=== PATIENT | female | born 1940 | race Caucasian/White ===

== ENCOUNTER 2018-05-26 11:00 | Inpatient (IN) | payer MEDICARE, BC ==
[~2018-05-26] VITALS: Ht 170.2 cm; Wt 77.7 kg
[~2018-05-26 11:00] MED LIST: AMIODARONE HCL200 MG PO; ANTIVERT25 MG PO; ASPIRIN81 MG PO; ATIVAN2 MG/1 ML SQ; BENADRYL25 M1 PO; CHLORDIAZEPOXID10 MG PO; COUMADIN4 MG PO; CYCLOBENZAPRINE10 MG PO; DIGOXIN125 MCG PO; DILANTIN100 MG PO; ENALAPRIL MALEA20 MG PO; FAMOTIDINE20 MG PO; FUROSEMIDE20 MG PO; HYDROXYZINE HCL25 MG PO; IRON325 M1 PO; IRON45 MG PO; LAMICTAL150 MG PO; LEVOTHYROXINE50 MCG PO; LIBRAX CAPSULE1 EACH PO; LO-DOSE ASPIRIN81 MG PO; METOPROLOL TART25 MG PO; POTASSIUM CHLO10 ME1 PO; PREDNISONE PO; PREDNISONE10 MG PO; ULTRAM 50MG50 MG PO; VASOTEC20 MG PO
--- OUTSIDE RECORDS SUMMARY | 2018-05-26 11:02 | XMS REPORT | Clinical Summary ---
Author Author KENAN [facility] Address Unknown Phone Unavailable Care Team Providers Care Turn Supervisor Name Role Phone Sharpless PCP Allergies Comments Active Allergy Reactions Severity Noted Date Celecoxib 09/22/2016 Heparin Analogues 09/03/2016 Azathioprine Sodium 09/22/2016 Levofloxacin 09/22/2016 Methotrexate Analogues 09/22/2016 Morphine Anxiety Low 09/03/2016 Sulfa (Sulfonamide 09/22/2016 Antibiotics) Rivaroxaban 09/22/2016 Medications End Date Status Medication Sig Dispensed Refills Start Date Active aspirin 81 MG chewable Take 81 mg by 0 tablet mouth daily. Active predniSONE (DELTASONE) 10 Take 10 mg by 0 MG tablet mouth daily . Active LORazepam (ATIVAN) 0.5 MG Take 0.5 mg 0 tablet by mouth every 6 (six) hours as needed for Anxiety. Active chlordiazePOXIDE Take 10 mg by 0 (LIBRIUM) 10 MG capsule mouth 3 (three) times daily as needed for Anxiety. Active furosemide (LASIX) 20 MG Take 20 mg by 0 tablet mouth 2 (two) times daily. Active HYDROcodone-acetaminophen Take 1 tablet 0 (NORCO) 5-325 mg per by mouth tablet every 6 (six) hours as needed for Pain. Active metoprolol (TOPROL-XL) 25 Take 25 mg by 0 MG 24 hr tablet mouth daily. Active ibuprofen (ADVIL,MOTRIN) Take 800 mg 0 800 MG tablet by mouth every 6 (six) hours as needed for Pain. Active Problems Problem Noted Date Seizure 09/03/2016 Social History Date Tobacco Use Types Packs/Day Years Used Unknown If Ever Smoked Alcohol Use Drinks/Week oz/Week Comments No Sex Assigned at Date Recorded Not on file Industry Job Start Date Occupation Not on file Not on file Not on file Travel End Travel History Travel Start No recent travel history available. Last Filed Vital Signs Not on file Plan of Treatment Not on file Results Not on fileafter 05/25/2017 Insurance Payer Benefit Subscriber ID Type Phone Address Plan / Group MEDICARE MEDICARE A xxxxxxxxxx Medicare B BLUE CROSS/BLUE SHIELD BCBS xxxxxxxxxxxx O [phone] [address] [place] [address] [place] Advance Directives For more information, please contact: [phone] [place] [address] Date Inactivated Comments Code Status Date Activated 09/05/2016 7:12 PM Full Code 09/03/2016 5:09 PM This code status was determined by: Patient
--- OUTSIDE RECORDS SUMMARY | 2018-05-26 11:03 | XMS REPORT ---
Author Author [facility] Address Unknown Phone Unavailable Care Team Providers Care Rn Charge Name Role Phone JO ANN DRAKE Unavailable Unavailable DENISE ENGLISH Unavailable Unavailable Problems This patient has no known problems. Allergies, Adverse Reactions, Alerts This patient has no known allergies or adverse reactions. Medications This patient has no known medications. Results Test Description Test Time Test Comments Text Results Atomic Results Result Comments URINALYSIS W/ MICROSCOPIC 2016-09-23 02:46:00 COLOR (BEAKER) (test vizz=634) Yellow CLARITY (BEAKER) (test vqzt=612) Clear SPECIFIC GRAVITY UA (BEAKER) (test gmmo=490) 1.020 1.001-1.035 PH UA (BEAKER) (test zuto=246) 6.0 5.0-8.0 PROTEIN UA (BEAKER) (test cokv=262) 20 mg/dL Negative GLUCOSE UA (BEAKER) (test eqcn=012) Negative Negative KETONES UA (BEAKER) (test vzzu=432) Negative Negative BILIRUBIN UA (BEAKER) (test njad=251) Negative Negative BLOOD UA (BEAKER) (test mplr=480) Negative Negative NITRITE UA (BEAKER) (test lrzg=642) Negative Negative LEUKOCYTE ESTERASE UA (BEAKER) (test queo=714) Negative Negative UROBILINOGEN UA (BEAKER) (test cddj=121) 0.2 mg/dL 0.2-1.0 RBC UA (BEAKER) (test drnh=635) 0 /HPF WBC UA (BEAKER) (test drho=716) 4 /HPF MUCUS (BEAKER) (test rcuz=0371) Occasional SQUAMOUS EPITHELIAL (BEAKER) (test nzla=408) 1 /HPF SOURCE(BEAKER) (test fnrd=1456) Urine, Voided [id number] 19:48:00* Test Item Value Reference Range Comments PHOSPHORUS (BEAKER) (test ysst=979) 3.1 mg/dL 2.3-4.7 [id number] 19:48:00* Test Item Value Reference Range Comments MAGNESIUM (BEAKER) (test aywl=004) 1.9 mg/dL 1.6-2.6 BASIC METABOLIC [id number] 19:48:00* Test Item Value Reference Range Comments SODIUM (BEAKER) (test iljf=603) 138 meq/L 136-145 POTASSIUM (BEAKER) (test ynpb=345) 3.9 meq/L 3.5-5.1 CHLORIDE (BEAKER) (test pybn=336) 107 meq/L 98-107 CO2 (BEAKER) (test djlc=175) 26 meq/L 22-29 BLOOD UREA NITROGEN (BEAKER) (test fbqt=287) 11 mg/dL 7-21 CREATININE (BEAKER) (test fati=598) 0.55 mg/dL 0.57-1.25 GLUCOSE RANDOM (BEAKER) (test hfci=580) 95 mg/dL 70-105 CALCIUM (BEAKER) (test ivly=393) 8.4 mg/dL 8.4-10.2 EGFR (BEAKER) (test ator=1023) 108 mL/min/1.73 sq m ESTIMATED GFR IS NOT ACCURATE CREATININE CLEARANCE IN PREDICTING GLOMERULAR FILTRATION RATE. ESTIMATED GFR IS NOT APPLICABLE FOR DIALYSIS PATIENTS. CBC W/PLT COUNT & AUTO [id number] 19:43:00* Test Item Value Reference Range Comments WHITE BLOOD CELL COUNT (BEAKER) (test lene=662) 3.5 K/ L 4.0-10.0 RED BLOOD CELL COUNT (BEAKER) (test oqxi=620) 2.96 M/ L 4.00-5.00 HEMOGLOBIN (BEAKER) (test apjj=205) 9.7 GM/DL 12.0-15.0 HEMATOCRIT (BEAKER) (test gtjb=690) 29.5 % 36.0-45.0 MEAN CORPUSCULAR VOLUME (BEAKER) (test wdeu=617) 99.7 fL 82.0-99.0 MEAN CORPUSCULAR HEMOGLOBIN (BEAKER) (test hqej=862) 32.7 pg 27.0-33.0 MEAN CORPUSCULAR HEMOGLOBIN CONC (BEAKER) (test jrql=856) 32.8 GM/DL 32.0-36.0 RED CELL DISTRIBUTION WIDTH (BEAKER) (test pqzj=982) 13.8 % 10.3-14.2 PLATELET COUNT (BEAKER) (test ssey=257) 175 K/CU MM 150-430 MEAN PLATELET VOLUME (BEAKER) (test vrgy=431) 7.6 fL 6.5-10.5 NUCLEATED RED BLOOD CELLS (BEAKER) (test nvuw=675) 0 /100 WBC 0-0 NEUTROPHILS RELATIVE PERCENT (BEAKER) (test yqej=242) 51 % LYMPHOCYTES RELATIVE PERCENT (BEAKER) (test wwbi=486) 29 % MONOCYTES RELATIVE PERCENT (BEAKER) (test bnpv=373) 14 % EOSINOPHILS RELATIVE PERCENT (BEAKER) (test rhup=760) 6 % BASOPHILS RELATIVE PERCENT (BEAKER) (test pbin=874) 1 % NEUTROPHILS ABSOLUTE COUNT (BEAKER) (test oobi=416) 1.78 K/ L 1.80-8.00 LYMPHOCYTES ABSOLUTE COUNT (BEAKER) (test bvnv=182) 1.03 K/ L 1.48-4.50 MONOCYTES ABSOLUTE COUNT (BEAKER) (test fypu=568) 0.48 K/ L 0.00-1.30 EOSINOPHILS ABSOLUTE COUNT (BEAKER) (test kiay=858) 0.20 K/ L 0.00-0.50 BASOPHILS ABSOLUTE COUNT (BEAKER) (test eeop=254) 0.04 K/ L 0.00-0.20 0.00URINE [id number] 12:34:00* Test Item Value Reference Range Comments CULTURE (BEAKER) (test xjen=4093) No growth BASIC METABOLIC [id number] 07:07:00* Test Item Value Reference Range Comments SODIUM (BEAKER) (test lkbj=244) 133 meq/L 136-145 POTASSIUM (BEAKER) (test jnbd=116) 4.2 meq/L 3.5-5.1 Specimen slightly hemolyzed CHLORIDE (BEAKER) (test krhn=765) 106 meq/L 98-107 CO2 (BEAKER) (test vmsv=171) 19 meq/L 22-29 BLOOD UREA NITROGEN (BEAKER) (test omif=819) 12 mg/dL 7-21 CREATININE (BEAKER) (test pvzx=369) 0.63 mg/dL 0.57-1.25 Specimen slightly hemolyzed GLUCOSE RANDOM (BEAKER) (test cdko=003) 78 mg/dL 70-105 CALCIUM (BEAKER) (test ahev=855) 8.3 mg/dL 8.4-10.2 EGFR (BEAKER) (test xtja=0004) mL/min/1.73 sq m INSUFFICIENT CLINICAL DATA TO CALCULATE ESTIMATED GFR. POCT-GLUCOSE [id number] 13:13:00* Test Item Value Reference Range Comments POC-GLUCOSE METER (BEAKER) (test dafs=1110) 90 mg/dL 70-110 TESTED AT [facility] [address] [facility] [address] CBC W/PLT COUNT & AUTO [id number] 05:53:00* Test Item Value Reference Range Comments WHITE BLOOD CELL COUNT (BEAKER) (test wgzy=414) 3.2 K/ L 4.0-10.0 RED BLOOD CELL COUNT (BEAKER) (test ygkm=887) 2.62 M/ L 4.00-5.00 HEMOGLOBIN (BEAKER) (test vhmw=652) 8.7 GM/DL 12.0-15.0 HEMATOCRIT (BEAKER) (test rxwg=193) 25.1 % 36.0-45.0 MEAN CORPUSCULAR VOLUME (BEAKER) (test sgni=678) 95.9 fL 82.0-99.0 MEAN CORPUSCULAR HEMOGLOBIN (BEAKER) (test aofj=970) 33.2 pg 27.0-33.0 MEAN CORPUSCULAR HEMOGLOBIN CONC (BEAKER) (test wbtp=713) 34.6 GM/DL 32.0-36.0 RED CELL DISTRIBUTION WIDTH (BEAKER) (test yqkq=205) 14.8 % 10.3-14.2 PLATELET COUNT (BEAKER) (test zjtk=810) 136 K/CU MM 150-430 MEAN PLATELET VOLUME (BEAKER) (test krlg=733) 8.4 fL 6.5-10.5 NUCLEATED RED BLOOD CELLS (BEAKER) (test gvbz=858) 3 /100 WBC 0-0 NEUTROPHILS RELATIVE PERCENT (BEAKER) (test zunq=426) 54 % LYMPHOCYTES RELATIVE PERCENT (BEAKER) (test cmjv=885) 28 % MONOCYTES RELATIVE PERCENT (BEAKER) (test hgqg=488) 16 % EOSINOPHILS RELATIVE PERCENT (BEAKER) (test fivc=947) 1 % BASOPHILS RELATIVE PERCENT (BEAKER) (test inku=573) 1 % NEUTROPHILS ABSOLUTE COUNT (BEAKER) (test nbuf=281) 1.74 K/ L 1.80-8.00 LYMPHOCYTES ABSOLUTE COUNT (BEAKER) (test vabs=648) 0.89 K/ L 1.48-4.50 MONOCYTES ABSOLUTE COUNT (BEAKER) (test bdno=090) 0.52 K/ L 0.00-1.30 EOSINOPHILS ABSOLUTE COUNT (BEAKER) (test kmsd=084) 0.03 K/ L 0.00-0.50 BASOPHILS ABSOLUTE COUNT (BEAKER) (test ysek=716) 0.02 K/ L 0.00-0.20 0.00BASIC METABOLIC [id number] 05:25:00* Test Item Value Reference Range Comments SODIUM (BEAKER) (test vxnt=733) 137 meq/L 136-145 POTASSIUM (BEAKER) (test otmb=475) 3.2 meq/L 3.5-5.1 Specimen slightly hemolyzed CHLORIDE (BEAKER) (test mtgz=818) 106 meq/L 98-107 CO2 (BEAKER) (test zcii=462) 24 meq/L 22-29 BLOOD UREA NITROGEN (BEAKER) (test yqnn=371) 13 mg/dL 7-21 CREATININE (BEAKER) (test ypro=580) 0.60 mg/dL 0.57-1.25 Specimen slightly hemolyzed GLUCOSE RANDOM (BEAKER) (test ywbw=813) 88 mg/dL 70-105 CALCIUM (BEAKER) (test prib=605) 7.7 mg/dL 8.4-10.2 EGFR (BEAKER) (test slwm=7105) mL/min/1.73 sq m INSUFFICIENT CLINICAL DATA TO CALCULATE ESTIMATED GFR. [id number] 05:22:00* Test Item Value Reference Range Comments MAGNESIUM (BEAKER) (test tahh=473) 1.6 mg/dL 1.6-2.6 Specimen slightly hemolyzed [id number] 05:22:00* Test Item Value Reference Range Comments PHOSPHORUS (BEAKER) (test jhwo=991) 3.1 mg/dL 2.3-4.7 Specimen slightly hemolyzed URINALYSIS W/ [id number] 19:25:00* Test Item Value Reference Range Comments COLOR (BEAKER) (test hjre=714) Yellow CLARITY (BEAKER) (test vlmx=345) Clear SPECIFIC GRAVITY UA (BEAKER) (test gxcj=737) 1.012 1.001-1.035 PH UA (BEAKER) (test nnad=029) 6.5 5.0-8.0 PROTEIN UA (BEAKER) (test ohwq=288) 10 mg/dL Negative GLUCOSE UA (BEAKER) (test zisi=199) Negative Negative KETONES UA (BEAKER) (test dulw=719) Negative Negative BILIRUBIN UA (BEAKER) (test cmtc=383) Negative Negative BLOOD UA (BEAKER) (test xria=893) Trace Negative NITRITE UA (BEAKER) (test fykt=485) Negative Negative LEUKOCYTE ESTERASE UA (BEAKER) (test ibbf=527) Negative Negative UROBILINOGEN UA (BEAKER) (test qfne=950) 0.2 mg/dL 0.2-1.0 RBC UA (BEAKER) (test lnpm=008) 4 /HPF WBC UA (BEAKER) (test ouzo=366) 3 /HPF MUCUS (BEAKER) (test zgqw=5179) Rare SOURCE(BEAKER) (test enua=9795) Urine, Agrawal
[2018-05-26] MEDS ORDERED: BACITRACIN ZINC 0.9GM TP ONE (11:51)
[2018-05-26] MEDS ORDERED: HYDROCODONE/APAP 5MG-325MG TAB PO ONE (12:00)
--- NOTE | 2018-05-26 13:04 | Diagnostic Imaging Report ---
Thoracic spine complete CPT code: 37494 Indication: Fall 2 days ago, back pain Technique: A.P. and lateral views of thoracic spine obtained without comparison. Findings: The bones are diffusely demineralized. Alignment maintained on AP view. There is height loss of the T7 vertebral body of approximately 30%. No subluxation on lateral image. There are mild degenerative changes of the spine. Cervicothoracic junction is not well demonstrated due to overlapping soft tissue and osseous structures. IMPRESSION: Age-indeterminate T7 compression deformity of approximately 30%. No subluxation. Signed by: Dr. Daysi Vargas MD on 05/26/2018 1:01 PM
--- NOTE | 2018-05-26 13:11 | Diagnostic Imaging Report ---
Lumbar spine two views CPT code: 16074 Indication: Fall 2 days ago, back pain Technique: A.P. and lateral views of the lumbar spine obtained Comparison: Thoracic spine x-rays obtained at the same time. A CT of the abdomen/pelvis performed in 2016 is not available for review. Findings: The bones are diffusely demineralized. There are five non rib bearing vertebral bodies. There is mild dextroscoliosis with the apex at L1/2. There is height loss of the T12 vertebral body of approximately 48%. There is minimal height loss of the L1 vertebral body. No subluxation. Disc space narrowing and endplate osteophytic lipping of L5-S1. There is facet arthropathy of the lower levels with right facet arthropathy at L4-5. Small anterior inferior osteophyte at L2. No abnormalities of the sacroiliac joints. The sacrum is normal. A right hip prosthesis is partially imaged. There are severe degenerative changes of the left hip. Visualized bones of the pelvis are intact. The bowel gas pattern is unremarkable. IMPRESSION: 1. Age indeterminate fracture of T12 of 48%. Minimal superior endplate height loss of L1. No listhesis. 2. Degenerative changes as described above. Signed by: Dr. Daysi Vargas MD on 05/26/2018 1:07 PM
--- NOTE | 2018-05-26 13:14 | Diagnostic Imaging Report ---
Left complete knee. CPT CODE: 58318. INDICATION: Fall COMPARISON: None FINDINGS: The bones are diffusely demineralized. No acute fracture or dislocation. Serpiginous sclerotic focus in the distal diaphysis of the femur measures 6.8 cm in length. Round sclerotic focus in the proximal metadiaphysis of the tibia measures 1.7 cm. Mild medial compartment narrowing of the knee. No significant osteophytosis. Small joint effusion. IMPRESSION: No acute osseous injury. Small joint effusion. Sclerotic intramedullary foci in the femur and proximal tibia may represent enchondromas or bone infarcts. Signed by: Dr. Daysi Vargas MD on 05/26/2018 1:11 PM
[2018-05-26 13:44] LABS: CLARITY,URINE HAZY (CLEAR); COLOR,URINE YELLOW (YELLOW); LEUKOCYTE ESTERASE ,URINE NEGATIVE (NEGATIVE); NITRITE,URINE NEGATIVE (NEGATIVE); PROTEIN,URINE DIPSTICK NEGATIVE (NEGATIVE)
[2018-05-26 13:45] LABS: BACTERIA,URINE FEW /HPF; BILIRUBIN,URINE NEGATIVE (NEGATIVE); EPITHELIAL CELLS,URINE FEW /LPF; KETONES,URINE NEGATIVE (NEGATIVE); RBC,URINE 0-5 /HPF (0-5); URINE UROBILINOGEN 0.2 mg/dL (0.2 - 1)
[2018-05-26] MEDS ORDERED: MORPHINE SULFATE 2 MG/ML SYR IV PRN (15:15)
[2018-05-26] MEDS ORDERED: ONDANSETRON HCL INJ 2 MG/ML VIAL IV PRN (15:15)
--- NOTE | 2018-05-26 15:37 | Diagnostic Imaging Report ---
Exam: Noncontrast head CT History:Fall Comparison studies: Imaging performed in 2013 is inaccessible at this time. However, the report was available for review. Technique: Axial images were obtained from the skull base to the vertex. Coronal and sagittal images reconstructed from the axial data. Dose modulation, iterative reconstruction, and/or weight based adjustment of the mA/kV was utilized to reduce the radiation dose to as low as reasonably achievable. Intravenous contrast: None Findings: Scalp/skull: No abnormalities. Extra-axial spaces: No masses. No fluid collections. Brain sulci: Mildly prominent. Ventricles: Mild compensatory dilatation. No hydrocephalus. Parenchyma: Mild hypodensities in the supratentorial white matter are small vessel ischemic changes. No masses, hemorrhage, acute or chronic cortical vascular insults. Sellar/suprasellar region: No abnormalities. Craniocervical junction: Patent foramen magnum. No Chiari one malformation. Incidental findings: Atherosclerotic calcifications in the carotid siphons . Impression: No acute abnormalities. Chronic findings: 1. Mild generalized volume loss. 2. Mild supratentorial white matter small vessel ischemic changes. This is a preliminary report was provided by the neuroradiology fellow, Dr. Edlon Garcia. Attending over read to follow. The images and preliminary report were reviewed and signed by Dr. Morena Morales, neuroradiology faculty, on 05/26/2018 at 1720. Signed by: Dr. Morena Morales M.D. on 05/26/2018 5:28 PM
--- NOTE | 2018-05-26 15:43 | Diagnostic Imaging Report ---
EXAMINATION: CHEST SINGLE (PORTABLE) COMPARISON: Report of chest x-ray performed 09/03/2016 INDICATION: ^fall DISCUSSION: Frontal view of the chest obtained at 1512 hours. HEART AND MEDIASTINUM: Mild cardiomegaly and aortic ectasia LINES: None. LUNGS: Diffuse hyperinflation consistent with COPD. Pulmonary vascular markings are mildly prominent. No pneumonia or pulmonary edema. PLEURA: No pleural effusion or pneumothorax. BONES AND SOFT TISSUES: The bones are diffusely demineralized. The soft tissues are normal. IMPRESSION: Cardiomegaly and pulmonary hyperinflation. No acute cardiopulmonary process. Signed by: Dr. Daysi Vargas MD on 05/26/2018 3:39 PM
--- OUTSIDE RECORDS SUMMARY | 2018-05-26 15:44 | XMS REPORT | Clinical Summary ---
Author Author KENAN [facility] Address Unknown Phone Unavailable Care Team Providers Care Regulator Inspector Name Role Phone Sharpless PCP Allergies Comments [...] B BLUE CROSS/BLUE SHIELD BCBS xxxxxxxxxxxx O [phone] [address] [place] [address] [place] Advance Directives For more information, please contact: [phone] [place] [address] Date Inactivated Comments Code Status Date Activated 09/05/2016 7:12 PM Full Code 09/03/2016 5:09 PM This code status was determined by: Patient
--- NOTE | 2018-05-26 15:46 | Diagnostic Imaging Report ---
Pelvis CPT code: 03462 Indication: Fall Technique: Portable AP image of the pelvis obtained. Comparison: No relevant priors. Correlation is made with report of CT of the abdomen and pelvis performed 05/09/2016 Findings: The bones are diffusely demineralized. Right hip prosthesis is in appropriate position without associated fracture or lucency to suggest loosening in the visualized portions. There are severe degenerative changes of the left hip with remodeling of the femoral head. No diastases of the pubic symphysis or sacral iliac joints. The pubic rami are intact. There are degenerative changes of the lower lumbar spine. IMPRESSION: 1. Right hip prosthesis in appropriate position without associated fracture in the visualized portions. No fractures in the visualized pelvis. 2. Severe degenerative changes of the left hip. Signed by: Dr. Daysi Vargas MD on 05/26/2018 3:42 PM
[2018-05-26] MEDS: HYDROCODONE/APAP 5MG-325MG TAB PO PRN ×2 (15:50→20:07)
--- NOTE | 2018-05-26 15:52 | Diagnostic Imaging Report ---
Exam: Cervical spine CT without contrast History: Fall with neck injury Comparison studies: None available at time of dictation Technique: Axial images were obtained through the cervical region. Coronal and sagittal images reconstructed from the axial data. Dose modulation, iterative reconstruction, and/or weight based adjustment of the mA/kV was utilized to reduce the radiation dose to as low as reasonably achievable. Intravenous contrast: None Findings: Fractures: Moderate compression deformities (approximately 50% height loss) of the C6 and C7 vertebral bodies with mild bulging of the posterior maldonado without significant canal stenosis. There is no significant adjacent prevertebral soft tissue swelling or hematoma. Soft tissues: Enlarged, heterogeneous left thyroid lobe. Atlantoaxial articulation: Intact. Alignment: Normal lordosis. Mild dextroconvex curvature of the cervical spine which may be positional. Cervicomedullary junction: No abnormalities. The foramen magnum is patent. Vertebrae: No infection or neoplasm. Degenerative changes: Mild multilevel degenerative disc height loss, greatest at C2-3, C4-5, and C6-7. IMPRESSION: 1. Age-indeterminate moderate compression deformities of C6 and C7. The cervical spine CT dated 09/03/2016 does not report compression fractures, however the images are not available for direct comparison. Clinical correlation to site of pain and retrieval of the prior images are recommended. No canal or foraminal stenosis is seen at these or other levels. 2. Cannot adequately evaluate for ligament, spinal cord and or vascular abnormalities. 3. Enlarged, heterogeneous left thyroid lobe. Consider nonemergent dedicated evaluation with ultrasound. This is a preliminary report was provided by the neuroradiology fellow, Dr. Eldon Garcia. Attending over read to follow. The images and preliminary report were reviewed and signed by Dr. Morena Morales, neuroradiology faculty, on 05/26/2018 at 1730 hours. Signed by: Dr. Morena Morales M.D. on 05/26/2018 5:30 PM
--- NOTE | 2018-05-26 16:02 | Diagnostic Imaging Report ---
Exam: Thoracic Spine CT without Contrast History: Fall with back injury. Comparison studies: Concurrent cervical spine CT Technique: Axial were obtained without IV contrast through the thoracic region. Coronal and sagittal images reconstructed from the axial data. Dose modulation, iterative reconstruction, and/or weight based adjustment of the mA/kV was utilized to reduce the radiation dose to as low as reasonably achievable. Intravenous contrast: None Findings: Alignment: Accentuation of the thoracic kyphosis at T7. No scoliosis. Soft tissues: No abnormalities.. Paraspinal muscles: Unremarkable Spinal canal/cord: The cord cannot be evaluated. In the left extradural/epidural space from mid T7 through mid T8, there is a soft tissue lesion (axial soft tissue, image numbers 54 through 60 and coronal soft tissue, image #35). This could represent extruded/migrated disc, a synovial cyst or benign tumor such as a schwannoma. Though the adjacent left neural foramen is not widened and not involved. Vertebrae: Multilevel compression deformities, as follows: Moderate compression deformities at C6 and C7, mild superior endplate deformity at T2, moderate compression deformity of T7 (approximately 40%), mild superior plate deformity of T12 and L1. Large superior endplate Schmorl's node at T11 which may have a component of mild compression deformity, as well. Degenerative changes: Multilevel degenerative disc height loss throughout the thoracic spine with vacuum disc phenomena at T9-10 through T11-12. Diffuse osteopenia. IMPRESSION: 1. Multilevel age indeterminate compression deformities, moderate at C6 and C7, mild superior endplate at T2, moderate at T7, and mild superior endplate at T12 and L1. Questionable mild superior endplate deformity of T11 in the setting of a prominent Schmorl's node at that level. There is no retropulsion of fracture fragments into the spinal canal. Comparison with prior studies would be helpful to determine chronicity. 2. Left posterior and lateral soft tissue mass in the extradural/epidural space from mid T7 through mid T8 which could represent an extruded or migrated disc, synovial cyst or benign tumor such as schwannoma. Further evaluation with a contrast-enhanced thoracic spine MRI is recommended. 3. Cannot adequately evaluate for ligament, spinal cord and or vascular abnormalities. 4. Diffuse osteopenia. This is a preliminary report was provided by the neuroradiology fellow, Dr. Eldon Garcia. Attending over read to follow. The images and preliminary report were reviewed, edited/ changed and signed by Dr. Morena Morales, neuroradiology faculty, on 05/26/[address] Morena Morales discussed findings and recommendations with Dr. Yancy Bingham on 05/26/2018 at 1741 hours. . Signed by: Dr. Morena Morales M.D. on 05/26/2018 5:43 PM
[2018-05-26 17:01] LABS: BASOPHILS % 0.7 % (0.0-1.0); EOSINOPHILS # (AUTO) 0.1 (0.0-0.4); HEMATOCRIT 35.1 % (34.2-44.1); HEMOGLOBIN 11.1 g/dL (12.0-16.0); LYMPHOCYTES # (AUTO) 1.2 (1.0-3.2); LYMPHOCYTES % 19.3 % (18.0-39.1); MEAN CORPUSCULAR HEMOGLOBIN 30.3 pg (28-32); MEAN CORPUSCULAR HGB CONC 31.6 g/dL (31-35); MEAN CORPUSCULAR VOLUME 95.9 fL (81-99); MONOCYTES # (AUTO) 0.5 (0.2-0.8); NEUTROPHILS # (AUTO) 4.2 (2.1-6.9); NEUTROPHILS % 69.7 % (38.7-80.0); PLATELET COUNT 136 x10e3/uL (140-360); RED BLOOD COUNT 3.66 x10e6/uL (3.6-5.1); RED CELL DISTRIBUTION WIDTH 14.6 % (11.7-14.4)
[2018-05-26 17:25] LABS: ALBUMIN 3.7 g/dL (3.5-5.0); ALBUMIN/GLOBULIN RATIO 0.6 (0.8-2.0); ANION GAP 16.9 mmol/L (8-16); CALCIUM 8.7 mg/dL (8.4-10.2); CREATININE, SERUM 0.98 mg/dL (0.57-1.11); POTASSIUM 4.9 mmol/L (3.5-5.1)
[2018-05-26 17:33] LABS: CREATINE KINASE MB 2.4 ng/mL (0-5.0)
--- NOTE | 2018-05-26 17:33 | NUR ---
Front Desk Coordinator is at bedside with ultrasound.
[2018-05-26] MEDS: SODIUM CHLORIDE 0.9% 1000ML 1,000 ML IV SCH (17:45)
--- NOTE | 2018-05-26 18:03 | NUR ---
Report called to Sudha Anne RN.
--- NOTE | 2018-05-26 18:05 | NUR ---
report received from ER, Nirmala. Patient arriving on stretcher, in no distress. Alert and oriented, call saavedra within reach and bed alarm on.
[2018-05-26 18:09] LABS: INR 0.99; PARTIAL THROMBOPLASTIN TIME 41.7 seconds (23.8-35.5)
--- NOTE | 2018-05-26 19:00 | NUR ---
rounded with the night nurse, patient aware of shift change. Patient in no distress, call saavedra within reach.
[2018-05-26 20:00] VITALS: BP 113/62
[2018-05-26 20:15] VITALS: BP 113/62
[2018-05-26 20:20] VITALS: BP 113/62
[2018-05-26] MEDS ORDERED: GADOBENATE DIMEGLUMINE 1 ML IV ONE (20:25)
[2018-05-27 01:11] VITALS: BP 103/51
--- NOTE | 2018-05-27 01:58 | Diagnostic Imaging Report ---
EXAMINATION: MRI of the thoracic spine without and with contrast HISTORY: T7 to T12 fractures. Status post fall on 05/24/2017 COMPARISON: Thoracic spine CT on 05/26/2018 TECHNIQUE: Sagittal T1 without contrast, T2, and STIR; axial T2. Coronal T2. Intravenous contrast: 15 mL of MultiHance FINDINGS: Curvature: Moderately increased thoracic kyphosis Vertebrae: Again seen multiple compression fractures as follows: -Acute compression fracture with enhancing bone marrow edema, in the T7 vertebral body, horizontal fracture line is extending to the posterior vertebral body cortex. Minimal edema is also seen in the adjacent right seventh and eighth posterior ribs. Decreasing prevertebral body height by approximately 50% without significant posterior retropulsion. There is an approximately 5 mm thickness and about 2.2 cm length left posterolateral spinal canal, likely subdural T1 hyperintense/T2 hypointense and not significantly enhancing lesion spanning from T7 to T8, which may correspond to a small subdural hematoma given recent trauma. There is associated mild canal stenoses and minimal displacement of the spinal cord anteriorly and to the right. Subtle increased T2 signal within the cord at this level is also noted. -Mild acute to subacute compression fracture of T12, horizontal fracture line adjacent to the superior endplate remains unremarkable. No posterior peripheral portion of canal stenosis. Decreased vertebral body height by approximately 30%. -Mild chronic compression fracture of the C6, C7, T2 vertebral body without significant retropulsion. -Possible bone marrow edema in the spinous processes of T3, T4, T5 and T6 (only seen on sagittal STIR), no associated expansion or enhancement. Attention to this finding is also recommended in follow-up studies to exclude trauma versus neoplastic process. Discs: No significant degenerative changes, no disc herniations or additional canal stenoses. Spinal canal: Above. Spinal cord: As above. Foramina: No significant stenoses Paraspinal soft tissues: Minimal paraspinal soft tissue swelling at the level of the T7 fracture. Proximal ribs: As above Paraspinal soft tissues: Partially visualized T2 hyperintense probable cysts in the left kidney IMPRESSION: 1. Again seen moderate acute compression fracture of the T7 vertebral body involving the posterior cortex, no significant posterior retropulsion. 2. Mild acute to subacute compression fracture of the T12 vertebral body. 3. Heterogeneous signal intensity lesion in the left posterolateral spinal canal at the level of T7-T8 may correspond to a subdural hematoma, neoplastic process cannot be excluded, a follow-up until resolution is advised. 4. Mild associated canal stenosis and cord displacement at T7-T8 with subtle increased signal within the cord. A neurosurgery consult is recommended for further evaluation. Signed by: Dr. Kallie Richardson M.D. on 05/27/2018 1:54 AM
[2018-05-27 04:00] VITALS: BP 121/56
[2018-05-27] MEDS: HYDROCODONE/APAP 5MG-325MG TAB PO PRN ×4 (04:14→17:50)
[2018-05-27] MEDS: SODIUM CHLORIDE 0.9% 1000ML 1,000 ML IV SCH (04:27)
[2018-05-27] MEDS ORDERED: LASIX40 MG PO (05:34)
[2018-05-27] MEDS ORDERED: ATIVAN1 MG PO (05:34)
[2018-05-27 05:52] LABS: BASOPHILS % 0.8 % (0.0-1.0); EOSINOPHILS # (AUTO) 0.2 (0.0-0.4); EOSINOPHILS % 4.7 % (0.0-6.0); HEMATOCRIT 27.4 % (34.2-44.1); HEMOGLOBIN 8.8 g/dL (12.0-16.0); LYMPHOCYTES # (AUTO) 0.7 (1.0-3.2); LYMPHOCYTES % 14.1 % (18.0-39.1); MEAN CORPUSCULAR HEMOGLOBIN 30.3 pg (28-32); MEAN CORPUSCULAR HGB CONC 32.1 g/dL (31-35); MEAN CORPUSCULAR VOLUME 94.5 fL (81-99); MONOCYTES # (AUTO) 0.5 (0.2-0.8); MONOCYTES % 10.8 % (4.4-11.3); NEUTROPHILS # (AUTO) 3.4 (2.1-6.9); NEUTROPHILS % 69.2 % (38.7-80.0); PLATELET COUNT 130 x10e3/uL (140-360); RED CELL DISTRIBUTION WIDTH 14.6 % (11.7-14.4)
[2018-05-27 06:14] LABS: ALANINE AMINOTRANSFERASE 39 IU/L (0-55); ALBUMIN 2.8 g/dL (3.5-5.0); ALBUMIN/GLOBULIN RATIO 0.6 (0.8-2.0); ALKALINE PHOSPHATASE 82 IU/L (40-150); ANION GAP 14.7 mmol/L (8-16); BLOOD UREA NITROGEN 32 mg/dL (7-26); BUN/CREATININE RATIO 36 (6-25); CALCIUM 8.1 mg/dL (8.4-10.2); CARBON DIOXIDE 21 mmol/L (22-29); CHLORIDE 106 mmol/L (98-107); EST GLOMERULAR FILTRATION RATE > 60 ML/MIN (60-); POTASSIUM 3.7 mmol/L (3.5-5.1); SODIUM 138 mmol/L (136-145)
[2018-05-27 06:21] LABS: GLUCOSE 59 mg/dL (74-118)
--- NOTE | 2018-05-27 07:02 | NUR ---
Received patient mid fowlers position, side rails upx2, call light within reach, bed alarm on. Resting with eyes closed. Arousable to verbal stimuli. Respirations even and unlabored. Will continue to monitor.
--- NOTE | 2018-05-27 07:17 | NUR ---
REPORT GIVEN TO ONCOMING NURSE,WALKING ROUNDS MADE.PT RESTING IN BED WITH NO S/S OF DISTRESS NOTED.
[2018-05-27 09:14] VITALS: BP 132/68
[2018-05-27 09:51] VITALS: BP 132/60
--- NOTE | 2018-05-27 10:00 | NUR ---
SOCIAL WORK INITIAL ASSESSMENT C4 Planner to bedside to discuss plan of care with patient/family. CM/SW role and care transitions discussed. Anticipated discharge plan discussed along with duration of care. CM/SW discussed patients right to make decisions in care. CM/SW work hours given. Patient lives: IN HOUSE WITH GRANDSON WHOM IS OUT OF TOWN UNTIL SUNDAY BECAUSE HE TOOK HIS KIDS BACK TO THEIR MOTHER Admit/Transfer: VIA HOME POA/Emergency contact: JOSE CABRERA [phone] Current/Previous Home Health: [facility]REAT[facility] 1 TIME A MONTH PCP/Follow-up Care: JESSICA Current/Previous DME: LISS Other Services: NONE Employment Status: RETIRED Areas of Concerns: NONE Referral Needs: NONE Education Needs: JAMI IMM/KOENIG given and signed (if applicable): KOENIG Goal for discharge: RETURN [facility] WHEN HE RETURNS FROM DROPPING OFF HIS KIDS. CM/SW left business card at the bedside with contact information. Name and number was also written on the patients whiteboard. Patient verbalized understanding of discussion. CM will follow-up with ongoing discharge and transition of care needs.
--- NOTE | 2018-05-27 10:40 | History and Physical ---
DATE OF SERVICE: 05/27/2018 CHIEF COMPLAINT: "I fell down." HISTORY OF PRESENT ILLNESS: This is a 77-year-old white woman who suffered a mechanical fall on the day of admission. The patient apparently was on the floor for approximately 3 to 4 hours according to family members. The patient adamantly states that it was a mechanical fall. She denies any presyncope or syncope symptoms prior to falling. She does have a history of atrial fibrillation and systolic heart failure, though. In the emergency room, the patient was initially found to have a creatine kinase level of 531. The patient's BUN and creatinine were 29 and 0.98 respectively. 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 She receives intravenous immunoglobulin infusions on a monthly basis. On admission, the patient had a pelvic x-ray that did not reveal any acute fracture but revealed severe left hip degenerative joint disease as well as a right hip prosthesis. The patient had a chest x-ray done which revealed hyperinflation, otherwise unremarkable. Cervical spine CT revealed multilevel cervical disk disease, but no acute fracture was appreciated. The CT, however, did reveal moderate compression deformities of C6-C7. The patient underwent a thoracic spine MRI with and without contrast that revealed moderate acute compression fracture of T7 vertebral body, but no significant posterior retropulsion was appreciated. The patient was admitted for further evaluation and treatment. The patient states that since she has been on monthly intravenous immunoglobulin infusions, her dermatopolymyositis symptoms have been manageable. In other words, the patient states she has had less generalized myalgias and arthralgias. REVIEW OF SYSTEMS GENERAL: Weight has been stable. No fever or chills. HEENT: No headache. No vision changes. CARDIOVASCULAR: No chest pain. No shortness of breath or cough. No palpitations. GI: No nausea, vomiting or constipation. : No UTI symptoms. NEUROMUSCULAR: Complains of pain in her bilateral knees as well as her lower back. Denies any limb weakness or numbness. PAST MEDICAL HISTORY 1. Dermatopolymyositis. 2. Chronic systolic congestive heart failure. 3. Hypertensive heart disease. 4. Chronic atrial fibrillation. 5. Physical debility. 6. Seizure disorder. 7. Anxiety disorder. 8. Major depressive disorder. 9. Anemia secondary to iron deficiency and chronic disease. 10. Hypothyroidism. SURGICAL HISTORY 1. 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 2. Total hysterectomy. 3. Cholecystectomy. FAMILY HISTORY: Multiple family members with hypertension. The patient's daughter has systemic lupus erythematosus. ALLERGIES 1. HEPARIN. 2. SULFA. 3. DIAZEPAM. 4. MORPHINE. 5. METHOTREXATE. SOCIAL HISTORY: This woman is a . She lives at home but has an adult grandson that is with her on a daily basis. No history of tobacco or alcohol use. The patient has an adult son and daughter who are very much involved in her healthcare needs. HOME MEDICATIONS 1. Librium 10 mg daily. 2. Diphenhydramine 25 mg every 4 hours p.r.n. itching. 3. Furosemide 40 mg daily. 4. Lorazepam 1 mg daily as needed for anxiety. PHYSICAL EXAMINATION GENERAL: She is awake, alert and fully oriented. She looks older than her stated age. She is very frail and debilitated. She appears very anxious, but is consolable. VITAL SIGNS: Height is 5 feet 7 inches, and weight is 168 pounds, BMI 26. Blood pressure 132/68, pulse 76, respiratory rate 18, oxygen saturation 96% on room air. Temperature is 97.5. INTEGUMENT: Skin is warm and dry. No pallor, jaundice or diaphoresis. HEENT: Anicteric sclerae with moist mucous membranes. The patient is edentulous. NECK: Supple. No evidence of jugular venous distention. CARDIOVASCULAR: Distant heart sounds. Tachycardic rate with regular rhythm. The patient has an S3 gallop. LUNGS: No rales. No rhonchi. No wheezing. ABDOMEN: Benign. EXTREMITIES: No edema or deformity. SPINE/TORSO: She has minimal tenderness when palpating the thoracolumbar spinous processes, but no exquisite tenderness is appreciated. NEUROLOGIC: Intact. No gross focal deficits appreciated. DIAGNOSES 1. Rhabdomyolysis (mild), resolving. 2. Status post mechanical fall. 3. T7 vertebral body compression fracture, possibly acute. 4. Chronic atrial fibrillation. 5. Hypertensive heart disease. 6. Chronic systolic congestive heart failure. 7. Seizure disorder. PLAN 1. Gentle intravenous fluids. 2. Follow renal function and creatine kinase levels. 3. Pain control. 4. Order physical therapy to ambulate the patient. 5. Ask for neurosurgery consult. 6. I spoke at length with the patient about discharge plan. May consider a shelter facility placement for further daily physical and occupational therapy. I spent an hour in the care of this patient. Job#: [id number]
[2018-05-27 12:00] VITALS: BP 130/77
[2018-05-27] MEDS: FUROSEMIDE 20 MG TAB PO SCH (12:03)
[2018-05-27] MEDS: LORAZEPAM 1 MG TAB PO SCH (12:03)
[2018-05-27] MEDS: CHLORDIAZEPOXIDE HCL 10 MG CAP PO SCH (12:03)
--- NOTE | 2018-05-27 12:40 | NUR ---
Report given to Evelio WILKINS of patient's status. Patient taken via bed to RM 203. Ralph , son, notified of transfer. No s/s of acute distress noted.
--- NOTE | 2018-05-27 13:31 | NUR ---
OBS TO INPT ORDERS IMM SIGNED AND ON CHART COPY TO PT REC'D PHONE CALL FROM RAJ AT [facility] WHO STATES PT IS ON SERVICE WITH THEM REQUEST RESUMPTION OF ORDERS UPON DISCHARGE [phone] FAX: [phone]
[2018-05-27 16:00] VITALS: BP 142/88
--- NOTE | 2018-05-27 19:00 | NUR ---
Report given to oncoming nurse of patient's status. No s/s of acute distress noted.
[2018-05-27] MEDS: HYDROCODONE/APAP 7.5MG-325MG 1 EA TAB PO PRN (20:23)
[2018-05-28] VITALS (8 sets, daily range): BP systolic 115–142; BP diastolic 57–91
[2018-05-28] MEDS: HYDROCODONE/APAP 7.5MG-325MG 1 EA TAB PO PRN ×4 (00:55→19:50)
[2018-05-28 05:27] LABS: BASOPHILS % 0.7 % (0.0-1.0); EOSINOPHILS # (AUTO) 0.3 (0.0-0.4); EOSINOPHILS % 6.4 % (0.0-6.0); HEMATOCRIT 28.3 % (34.2-44.1); HEMOGLOBIN 9.1 g/dL (12.0-16.0); LYMPHOCYTES # (AUTO) 0.9 (1.0-3.2); LYMPHOCYTES % 22.2 % (18.0-39.1); MEAN CORPUSCULAR HEMOGLOBIN 30.4 pg (28-32); MEAN CORPUSCULAR HGB CONC 32.2 g/dL (31-35); MEAN CORPUSCULAR VOLUME 94.6 fL (81-99); MONOCYTES # (AUTO) 0.4 (0.2-0.8); NEUTROPHILS # (AUTO) 2.5 (2.1-6.9); NEUTROPHILS % 60.5 % (38.7-80.0); PLATELET COUNT 153 x10e3/uL (140-360); RED BLOOD COUNT 2.99 x10e6/uL (3.6-5.1); RED CELL DISTRIBUTION WIDTH 14.5 % (11.7-14.4)
[2018-05-28 06:08] LABS: ALANINE AMINOTRANSFERASE 61 IU/L (0-55); ALBUMIN 2.9 g/dL (3.5-5.0); ALBUMIN/GLOBULIN RATIO 0.6 (0.8-2.0); ALKALINE PHOSPHATASE 137 IU/L (40-150); ANION GAP 13.8 mmol/L (8-16); BLOOD UREA NITROGEN 26 mg/dL (7-26); BUN/CREATININE RATIO 33 (6-25); CALCIUM 8.5 mg/dL (8.4-10.2); CARBON DIOXIDE 23 mmol/L (22-29); CHLORIDE 107 mmol/L (98-107); CREATINE KINASE 225 IU/L (29-168); EST GLOMERULAR FILTRATION RATE > 60 ML/MIN (60-); GLUCOSE 65 mg/dL (74-118); POTASSIUM 3.8 mmol/L (3.5-5.1); SODIUM 140 mmol/L (136-145)
[2018-05-28] MEDS: CHLORDIAZEPOXIDE HCL 10 MG CAP PO SCH (08:25)
[2018-05-28] MEDS: FUROSEMIDE 20 MG TAB PO SCH (08:25)
[2018-05-28] MEDS: LORAZEPAM 1 MG TAB PO SCH (08:25)
[2018-05-28] MEDS ORDERED: FUROSEMIDE 40 MG TAB PO SCH (09:00)
[2018-05-28] MEDS: TOBRAMYCIN 0.3% (OPTH) 5 ML BTL OP SCH ×3 (09:56→20:30)
--- NOTE | 2018-05-28 13:40 | NUR ---
Visit made by the Spiritual Care Department Pastoral Visitor, Sudha Reese. Pt sleeping soundly and no family present. Pastoral Visitor left a card describing availability of hand chain maker and instructions on how to contact a hand chain maker. NATALY DO Food Consultant Spiritual Care Department O: [phone] Pager: [phone] ([phone] calling from)
--- NOTE | 2018-05-28 19:25 | NUR ---
RCV PT FROM 203 VIA BED AAOX3. NO S/S OF DISTRESS NOTED. ORIENTED PT TO UNIT. BED LOCKED AND IN LOW POSITION. CALL LIGHT WITHIN REACH. SIDE RAILS UPX2. BED ALARM ON.
--- NOTE | 2018-05-28 21:42 | NUR ---
SPOKE TO DR. LOPEZ AT THIS TIME REGARDING PT STILL COMPLAINING OF PAIN AFTER GIVING NORCO AND REQUEST OF BENADRYL. NEW ORDER RCV TO GIVE ONE MORE DOSE OF NORCO 7.5 NOW AND CONTINUE HOME MED BENADRYL.
[2018-05-28] MEDS ORDERED: DIPHENHYDRAMINE HCL 25 MG CAP PO PRN (21:45)
[2018-05-28] MEDS ORDERED: HYDROCODONE/APAP 7.5MG-325MG 1 EA TAB PO NR (21:45)
[2018-05-29] VITALS (8 sets, daily range): BP systolic 95–123; BP diastolic 53–69
[2018-05-29 06:15] LABS: BASOPHILS % 0.7 % (0.0-1.0); EOSINOPHILS # (AUTO) 0.2 (0.0-0.4); EOSINOPHILS % 4.2 % (0.0-6.0); HEMATOCRIT 30.3 % (34.2-44.1); HEMOGLOBIN 10.2 g/dL (12.0-16.0); LYMPHOCYTES # (AUTO) 0.9 (1.0-3.2); LYMPHOCYTES % 21.9 % (18.0-39.1); MEAN CORPUSCULAR HEMOGLOBIN 30.9 pg (28-32); MEAN CORPUSCULAR HGB CONC 33.7 g/dL (31-35); MEAN CORPUSCULAR VOLUME 91.8 fL (81-99); MONOCYTES # (AUTO) 0.5 (0.2-0.8); MONOCYTES % 12.7 % (4.4-11.3); NEUTROPHILS # (AUTO) 2.4 (2.1-6.9); NEUTROPHILS % 60.3 % (38.7-80.0); PLATELET COUNT 160 x10e3/uL (140-360); RED CELL DISTRIBUTION WIDTH 14.3 % (11.7-14.4)
[2018-05-29] MEDS: HYDROCODONE/APAP 7.5MG-325MG 1 EA TAB PO PRN (06:23)
[2018-05-29 06:37] LABS: ALANINE AMINOTRANSFERASE 73 IU/L (0-55); ALBUMIN 2.8 g/dL (3.5-5.0); ALBUMIN/GLOBULIN RATIO 0.6 (0.8-2.0); ALKALINE PHOSPHATASE 162 IU/L (40-150); ANION GAP 12.8 mmol/L (8-16); BLOOD UREA NITROGEN 17 mg/dL (7-26); BUN/CREATININE RATIO 23 (6-25); CALCIUM 8.6 mg/dL (8.4-10.2); CARBON DIOXIDE 24 mmol/L (22-29); CHLORIDE 102 mmol/L (98-107); CREATINE KINASE 164 IU/L (29-168); CREATININE, SERUM 0.74 mg/dL (0.57-1.11); EST GLOMERULAR FILTRATION RATE > 60 ML/MIN (60-); GLUCOSE 112 mg/dL (74-118); POTASSIUM 3.8 mmol/L (3.5-5.1); SODIUM 135 mmol/L (136-145)
--- NOTE | 2018-05-29 06:55 | NUR ---
WALKING ROUNDS WITH DAYSHIFT NURSE PERFORMED. PT RESTING. BED LOCKED AND IN LOW POSITION. CALL LIGHT WITHIN REACH. SIDE RAILS UPX2. BED ALARM ON.
[2018-05-29] MEDS ORDERED: KETOROLAC TROMETHAMINE 30 MG/ML VIAL IV STA (08:45)
[2018-05-29 08:52] LABS: EOSINOPHILS % (MANUAL) 6 % (0-7); LYMPHOCYTES % (MANUAL) 16 % (19-48); MONOCYTES % (MANUAL) 6 % (3.4-9.0); NEUTROPHILS % (MANUAL) 71 % (40-74)
[2018-05-29 08:54] LABS: HYPOCHROMASIA SLIGHT; PLATELET ESTIMATE ADEQUATE; PLATELET MORPHOLOGY COMMENT NORMAL; RBC MORPHOLOGY COMMENT NORMAL
[2018-05-29] MEDS ORDERED: KETOROLAC TROMETHAMINE 30 MG/ML VIAL IV PRN (09:00)
[2018-05-29] MEDS: TOBRAMYCIN 0.3% (OPTH) 5 ML BTL OP SCH ×3 (09:06→20:39)
[2018-05-29] MEDS: FUROSEMIDE 20 MG TAB PO SCH ×2 (09:06→17:30)
[2018-05-29] MEDS: CHLORDIAZEPOXIDE HCL 10 MG CAP PO SCH (09:06)
[2018-05-29] MEDS: LORAZEPAM 1 MG TAB PO SCH (09:06)
--- NOTE | 2018-05-29 09:06 | NUR ---
assessment complete no distress noted, updated on poc voiced understanding, co pain to l back/side, medicated with prn meds, abrasion to l elbow, right knee, c/d/i, no other co voiced call light in reach will continue to monitor
[2018-05-29] MEDS: METOPROLOL SUCCINATE 25 MG TAB XL PO SCH (09:12)
--- NOTE | 2018-05-29 09:27 | NUR ---
DR HICKMAN HERE TO SEE PT FOR REHAB EVAL PT REQUESTING TO GO TO SNF SHE DOESN'T THINK SHE CAN HANDLE THE THERAPY AT [facility] ORDER REC'D DR HICKMAN NOTIFIED DR LOPEZ OF PT'S DECISION
--- NOTE | 2018-05-29 11:20 | Diagnostic Imaging Report ---
EXAMINATION: CHEST SINGLE (PORTABLE) INDICATION: ^CHF COMPARISON: Chest x-ray 05/26/2018 FINDINGS: AP view TUBES and LINES: None. LUNGS: Lungs are well inflated. Right lung base airspace opacity. Left basilar atelectasis. There is mild prominence of the central pulmonary vasculature, consistent with pulmonary venous congestion. PLEURA: No pleural effusion or pneumothorax. HEART AND MEDIASTINUM: Cardiac size is mildly enlarged. Tortuous ectatic aorta is unchanged. BONES AND SOFT TISSUES: No acute osseous lesion. Soft tissues are unremarkable. UPPER ABDOMEN: No free air under the diaphragm. IMPRESSION: 1. Central pulmonary venous congestion. 2. New right lung base airspace opacities, likely pneumonia. Left basilar atelectasis. Signed by: Dr. Dexter Flores M.D. on 05/29/2018 11:17 AM
--- NOTE | 2018-05-29 15:40 | NUR ---
SIGNED CHOICE FOR [facility]YAR[facility] OF MANNIE FILED IN CHART , FAXING CLINICALS TO [phone]
--- NOTE | 2018-05-29 16:20 | Consultation ---
DATE OF CONSULTATION: May 29, 2018 REFERRING PHYSICIAN: Dr. Tony Patterson. First of all, I would like to thank Dr. Patterson for asking me to see Mrs. Nicholas in consultation. REASONS FOR CONSULTATION 1. Rhabdomyolysis. 2. Status post T7 compression fracture. 3. Debilitated state. 4. Dermatomyositis. HISTORY: The patient is a 77-year-old female who has multiple medical problems, who had fallen at home and had laid on the ground for about 3 to 4 hours. She came into the hospital and underwent workup and was found to have cervical disk disease but no acute fractures. However, she was found to have a compression fracture at T7 vertebral body, but no retropulsion. The patient has a history of dermatomyositis and gets IVIG. I am being asked to evaluate for rehab needs. The patient is not back to her prior level of function and she needs to get stronger. PAST MEDICAL HISTORY: Includes dermatomyositis, CHF, hypertension, chronic atrial fibrillation, history of seizure disorder, anxiety disorder, depression, hypothyroidism. SURGERIES: Include right DOROTHY because of avascular necrosis, total hysterectomy, and cholecystectomy. FAMILY HISTORY: Positive for hypertension as well as lupus. ALLERGIES: HEPARIN, SULFA, DIAZEPAM, MORPHINE, METHOTREXATE. CONSTITUTIONAL REVIEW OF SYSTEMS GENERAL: Weight has been stable. EYES: Denies. EARS: Denies. NECK: Denies. CARDIAC: Denies. MUSCULOSKELETAL: Has some arthritis to the neck and back. GI: Denies. : Denies. SKIN: Denies. HEMATOLOGIC: Denies. ONCOLOGIC: No unusual weight loss. SOCIAL HISTORY: Lives at home with her grandson. Was fairly functional prior to admission. Again, she gets IVIG on a [id number] basis. PHYSICAL EXAMINATION GENERAL: The patient is awake and alert, very pleasant, lying in bed, in no apparent distress at this time. EYES: Gaze conjugate. ORAL: Tongue is midline. NECK: Supple. HEART: Regular. LUNGS: Diminished breath sounds. ABDOMEN: Nontender, nondistended. EXTREMITIES: Functional range of motion to the arms as well as the legs. SENSORY: Denies any numbness or tingling of the hands, feet or face. MANUAL MUSCLE TESTING: Demonstrates 4/5 strength in the upper extremities bilaterally. The right lower extremity demonstrates 4+/5 strength. The left lower extremity demonstrates 3+/5 to 4-/5 strength. Ankle dorsiflexion and plantarflexion on the left are 4/5 strength. Her back is sore. We are not able to really get her up at this time. Therapy has been initiated. IMPRESSION 1. Debilitated state. 2. Rhabdomyolysis. 3. Dermatomyositis. 4. T7 compression fracture. I spoke with the patient at length. We discussed the difference between inpatient rehab at 3 hours of therapy per day versus skilled, which would be 1 to 2 hours per day depending on how she felt. She said she does not feel she can handle 3 hours of therapy a day and just wants to go to a skilled unit and start off at 1 hour a day and build up after that. I have cautioned falls. Will need group home facility placement. Thank you once again, Dr. Patterson, for allowing me to participate in the care of this pleasant but unfortunate patient. Job#: [id number]
[2018-05-30] VITALS: BP 124/63
[2018-05-30 04:00] VITALS: BP 108/58
[2018-05-30 06:13] LABS: BASOPHILS % 0.8 % (0.0-1.0); EOSINOPHILS # (AUTO) 0.2 (0.0-0.4); EOSINOPHILS % 5.3 % (0.0-6.0); HEMATOCRIT 30.4 % (34.2-44.1); HEMOGLOBIN 10.1 g/dL (12.0-16.0); LYMPHOCYTES # (AUTO) 0.9 (1.0-3.2); LYMPHOCYTES % 25.6 % (18.0-39.1); MEAN CORPUSCULAR HEMOGLOBIN 30.7 pg (28-32); MEAN CORPUSCULAR HGB CONC 33.2 g/dL (31-35); MEAN CORPUSCULAR VOLUME 92.4 fL (81-99); MONOCYTES # (AUTO) 0.4 (0.2-0.8); MONOCYTES % 12.3 % (4.4-11.3); NEUTROPHILS % 55.7 % (38.7-80.0); PLATELET COUNT 167 x10e3/uL (140-360); RED BLOOD COUNT 3.29 x10e6/uL (3.6-5.1); RED CELL DISTRIBUTION WIDTH 14.5 % (11.7-14.4)
[2018-05-30 06:44] LABS: ALANINE AMINOTRANSFERASE 70 IU/L (0-55); ALBUMIN 2.9 g/dL (3.5-5.0); ALBUMIN/GLOBULIN RATIO 0.6 (0.8-2.0); ALKALINE PHOSPHATASE 160 IU/L (40-150); ANION GAP 13.6 mmol/L (8-16); BLOOD UREA NITROGEN 19 mg/dL (7-26); BUN/CREATININE RATIO 25 (6-25); CALCIUM 8.6 mg/dL (8.4-10.2); CARBON DIOXIDE 26 mmol/L (22-29); CHLORIDE 103 mmol/L (98-107); CREATININE, SERUM 0.75 mg/dL (0.57-1.11); EST GLOMERULAR FILTRATION RATE > 60 ML/MIN (60-); GLUCOSE 86 mg/dL (74-118); POTASSIUM 3.6 mmol/L (3.5-5.1); SODIUM 139 mmol/L (136-145)
[2018-05-30] MEDS ORDERED: IBUPROFEN 600 MG TAB PO PRN (07:45)
[2018-05-30 08:00] VITALS: BP 114/57
--- NOTE | 2018-05-30 08:11 | Discharge Summary ---
ADMIT DIAGNOSES 1. Rhabdomyolysis (mild), resolving. 2. Status post mechanical fall. 3. T7/T12 vertebral body compression fracture. 4. Chronic atrial fibrillation. 5. Hypertensive heart disease. 6. Chronic systolic congestive heart failure. 7. Seizure disorder. 8. Dermatopolymyositis. DISCHARGE DIAGNOSES 1. Rhabdomyolysis, resolved. 2. [id number] systolic congestive heart failure, resolved. 3. Chronic systolic congestive heart failure. 4. Chronic atrial fibrillation. 5. Physical debility. 6. Hypertensive heart disease. 7. Seizure disorder. 8. Dermatopolymyositis. 9. T7/T12 vertebral body compression fractures, likely chronic. 10. Elevated hepatic transaminases likely secondary to acetaminophen use. HOSPITAL COURSE: This is a 77-year-old white woman who was initially admitted to [facility] with the diagnosis of mild rhabdomyolysis after sustaining a mechanical fall. The patient also underwent a thoracic spine MRI that revealed T7 and T12 vertebral body compression fractures. The radiologist interpreted these vertebral fractures as acute to subacute in nature. However, on exam the patient did not have any spinal tenderness. Her only pain was in the left thoracolumbar musculature area. The patient became quite debilitated physically from this mechanical fall. During this hospitalization, physical therapy was attempted every day, but with only minimal results. Initial referral was made to an inpatient rehabilitation hospital, namely [facility] but she was denied due to the fact that she could not participate fully with physical therapy. Also, during this hospitalization the patient was started on oral furosemide, as well as metoprolol succinate in regards to her atrial fibrillation and congestive heart failure. Hydrocodone with acetaminophen was discontinued during this hospitalization because of elevated hepatic transaminases. Also, during this hospitalization the patient's serum creatinine kinase level normalized. Also, during this hospitalization the patient was made a do not resuscitate code status by her adult son, which is her medical power of attorney general. The decision was made to transfer the patient to a local [facility] facility, namely the [facility]. The patient's condition on discharge was stable with an overall fair prognosis. DISCHARGE MEDICATIONS 1. Furosemide 40 mg every morning. 2. Metoprolol succinate 25 mg daily. 3. Lorazepam 0.5 mg daily. 4. Librium 10 mg daily. 5. Ibuprofen 600 mg t.i.d. p.r.n. pain. FOLLOWUP INSTRUCTIONS: As previously stated, the patient will be transferred to a local [facility] facility, namely the [facility], where she will receive daily physical therapy. Also, at this facility the patient can receive her monthly infusion of intravenous immunoglobulin. DYAN LOPEZ MD Job#: [id number] [place]
[2018-05-30 08:35] VITALS: BP 114/56
[2018-05-30] MEDS: LORAZEPAM 1 MG TAB PO SCH (08:35)
[2018-05-30] MEDS: CHLORDIAZEPOXIDE HCL 10 MG CAP PO SCH (08:35)
[2018-05-30] MEDS: METOPROLOL SUCCINATE 25 MG TAB XL PO SCH (08:35)
--- NOTE | 2018-05-30 08:35 | NUR ---
assessment complete no distress noted, updated on poc voiced understanding, co pain 11/27 to back medicated with prn meds, l ac 20g and l hand 22g no ss of infiltration noted, no other co voiced call light in reach will continue to monitor
[2018-05-30] MEDS ORDERED: FUROSEMIDE 40 MG TAB PO SCH (09:00)
[2018-05-30] MEDS ORDERED: FUROSEMIDE 20 MG TAB PO SCH (09:00)
--- NOTE | 2018-05-30 11:00 | NUR ---
SPOKE WITH PATIENT ABOUT CALL RECEIVED FROM [facility] STATING THAT THEY CANNOT PLACE UNTIL ALLSTATE CLAIM FROM 2008 IS CLOSED. SHE REFERRED ME TO HER SON DEBORAH [phone]. CALLED HIM GAVE HIM [employer] PHONE NUMBER TO RESOLVE ISSUE TO GET AUTH ON PT TO GO TO FACILITY.
--- NOTE | 2018-05-30 13:17 | NUR ---
SON STATES CALLED INSURANCE AND STATES IT IS BEING STRAIGHTENED OUT, PASRR COMPLETED FILED IN CHART AND RTF COMPETED AND GIVEN TO POWDER COAT PAINTER. IMM SIGNED FILED IN CHART AND COPY GIVEN TO PT AT BEDSIDE.
--- NOTE | 2018-05-30 14:36 | NUR ---
CASE MANAGEMENT INITIAL ASSESSMENT Bar Back to bedside to discuss plan of care with patient/family. CM/SW role and care transitions discussed. Anticipated discharge plan discussed along with duration of care. CM discussed patients right to make decisions in care. CM/SW work hours given. Patient lives: PATIENT LIVES IN [address] [facility] IN [place], [place] Admit/Transfer: ED POA/Emergency contact: DEBORAH VALE: [phone]/ [phone] Current/Previous Home Health: NONE PCP/Follow-up Care: DR. DYAN LOPEZ Current/Previous DME: N/A Other Services: N/A Employment Status: RETIRED Areas of Concerns: MOBILITY Referral Needs: PRISON Education Needs: NONE AT THIS TIME IMM/KOENIG given and signed (if applicable): NOT AT THIS TIME Goal for discharge: PATIENT GOAL IS TO DISCHARGE HOME WITH NO NEEDS CM left business card at the bedside with contact information. Name and number was also written on the patients whiteboard. Patient verbalized understanding of discussion. CM will follow-up with ongoing discharge and transition of care needs.
[2018-05-30 15:27] VITALS: BP 133/51
--- NOTE | 2018-05-30 16:27 | NUR ---
GOT APPROVAL FOR PT TO GO TO [address] AT [facility], GAVE INFORMATION TO NURSE TO CALL REPORT, IMM SIGNED AND FILED ON CHART WITH COPY GIVEN TO PATIENT AT BEDSIDE RTF FILLED OUT AND GIVEN TO NURSE. PASRR FILED IN CHART WITH COPY TO ACCOMPANY PT TO FACILITY.
--- NOTE | 2018-05-30 16:32 | NUR ---
report given to kim kellogg at [facility],([phone]) pt going to rm 129 awaiting ambulance
[2018-05-30 16:52] VITALS: BP 103/66
--- NOTE | 2018-05-30 22:26 | Progress Note ---
DATE: May 30, 2018 SUBJECTIVE: Ms. Nicholas is seen on rounds today. She is having a difficult time just transferring from the supine to sit position, laying in the bed somewhat at an angle. Has difficult time getting her leg up. We were able to help reposition her, so she could lay back and bend more comfortably. She will be going to the skilled unit for continuation of care. OBJECTIVE VITAL SIGNS: Temperature 98.1, respirations of 18, heart rate 76, blood pressure 114/56. HEART: Regular rate and rhythm. LUNGS: Fair air entry. ABDOMEN: Nondistended, nontender. NECK: No JVD. ASSESSMENT AND PLAN: Clinically, she is doing about the same. Supine to sit transfer is moderate assist, sitting down is moderate assist. As far as gait training, very limited right now. The patient with overall decline in mobility and having difficulty with transfers and gait. Will be going to intermediate facility for continuation of care. The patient truly believes she cannot handle 3 hours of inpatient rehab which at this point I agree with too. Continue treatment in the [facility]. Job#: [id number]
== END 2018-05-30 17:44 | DRG 565 ==
LOC: ER 11:00 → ERHOLD 15:07 → IMCU 18:20 → OBSVTOIN 05-27 09:44 → MED/SURG2 05-27 12:50 → MED/SURG 05-28 19:37
PROVIDERS: ADMIT Internal Medicine; ATTEND Internal Medicine
DX: T79.6XXA Traumatic ischemia of muscle, initial encounter (principal); S22.069A Unspecified fracture of T7-T8 vertebra, initial encounter for closed fracture; I50.22 Chronic systolic (congestive) heart failure; M33.90 Dermatopolymyositis, unspecified, organ involvement unspecified; W18.31XA Fall on same level due to stepping on an object, initial encounter; G40.909 Epilepsy, unspecified, not intractable, without status epilepticus; F41.9 Anxiety disorder, unspecified; F32.9 Major depressive disorder, single episode, unspecified; D63.8 Anemia in other chronic diseases classified elsewhere; D50.9 Iron deficiency anemia, unspecified; E03.9 Hypothyroidism, unspecified; I48.2 Chronic atrial fibrillation; Z79.01 Long term (current) use of anticoagulants; I11.0 Hypertensive heart disease with heart failure; R53.81 Other malaise; Z88.2 Allergy status to sulfonamides
CPT/HCPCS: 36415; 70450; 71045; 72070; 72110; 72125; 72128; 72157; 72170; 80053; 81001; 82550; 82553; 82948; 83880; 84443; 84484; 85025; 85610; 85730; 93005; 97139; 99284; G0378; J1885; J2405; J7030

== ENCOUNTER 2018-06-17 13:32 | Inpatient (IN) | payer MEDICARE, BC ==
[~2018-06-17] VITALS: Ht 170.2 cm; Wt 78.0 kg
[~2018-06-17 13:32] MED LIST changes: +ATIVAN1 MG PO; +LASIX40 MG PO
--- OUTSIDE RECORDS SUMMARY | 2018-06-17 13:35 | XMS REPORT | Clinical Summary ---
Author Author KENAN [facility] Address Unknown Phone Unavailable Care Team Providers Care Materials Development Engineer Name Role Phone Sharpless PCP Allergies Comments [...] Not on file Results Not on fileafter 06/16/2017 Insurance Payer Benefit Subscriber ID Type Phone Address Plan / Group MEDICARE MEDICARE A xxxxxxxxxx Medicare B BLUE CROSS/BLUE SHIELD BCBS xxxxxxxxxxxx O [phone] [address] [place] [address] [place] Advance Directives For more information, please contact: [id number] [place] [address] Date Inactivated Comments Code Status Date Activated 09/05/2016 7:12 PM Full Code 09/03/2016 5:09 PM This code status was determined by: Patient
[2018-06-17 14:42] LABS: BASOPHILS % 0.3 % (0.0-1.0); EOSINOPHILS # (AUTO) 0.1 (0.0-0.4); EOSINOPHILS % 1.7 % (0.0-6.0); HEMATOCRIT 28.9 % (34.2-44.1); HEMOGLOBIN 9.4 g/dL (12.0-16.0); LYMPHOCYTES # (AUTO) 0.6 (1.0-3.2); LYMPHOCYTES % 18.5 % (18.0-39.1); MEAN CORPUSCULAR HEMOGLOBIN 30.1 pg (28-32); MEAN CORPUSCULAR HGB CONC 32.5 g/dL (31-35); MEAN CORPUSCULAR VOLUME 92.6 fL (81-99); MONOCYTES # (AUTO) 0.4 (0.2-0.8); MONOCYTES % 11.8 % (4.4-11.3); NEUTROPHILS # (AUTO) 2.3 (2.1-6.9); NEUTROPHILS % 67.4 % (38.7-80.0); PLATELET COUNT 198 x10e3/uL (140-360); RED BLOOD COUNT 3.12 x10e6/uL (3.6-5.1); RED CELL DISTRIBUTION WIDTH 15.5 % (11.7-14.4)
[2018-06-17] MEDS ORDERED: LORAZEPAM INJ 2 MG/ML VIAL ONE (14:49)
[2018-06-17] MEDS ORDERED: LORAZEPAM INJ 2 MG/ML VIAL IM ONE (15:00)
[2018-06-17] MEDS ORDERED: FOSPHENYTOIN 50 MG/ML VIAL IV STA (15:06)
[2018-06-17] MEDS ORDERED: FOSPHENYTOIN 1,000 MG in SODIUM CHLORIDE 0.9% 250ML 250 ML IV SCH (15:15)
[2018-06-17 16:46] LABS: BILIRUBIN,URINE NEGATIVE (NEGATIVE); CLARITY,URINE HAZY (CLEAR); COLOR,URINE YELLOW (YELLOW); KETONES,URINE NEGATIVE (NEGATIVE); LEUKOCYTE ESTERASE ,URINE NEGATIVE (NEGATIVE); NITRITE,URINE NEGATIVE (NEGATIVE); PROTEIN,URINE DIPSTICK NEGATIVE (NEGATIVE); URINE UROBILINOGEN 0.2 mg/dL (0.2 - 1)
[2018-06-17 16:58] LABS: AMPHETAMINES SCREEN,URINE NEGATIVE (NEGATIVE); BENZODIAZEPINES SCREEN,URINE POSITIVE (NEGATIVE); PHENCYCLIDINE SCREEN,URINE NEGATIVE (NEGATIVE)
[2018-06-17 17:01] LABS: AMORPHOUS SEDIMENT,URINE MANY (FEW); BACTERIA,URINE RARE /HPF
[2018-06-17 17:06] LABS: ALKALINE PHOSPHATASE 164 IU/L (40-150)
[2018-06-17 17:08] LABS: ALANINE AMINOTRANSFERASE 14 IU/L (0-55); ALBUMIN 2.9 g/dL (3.5-5.0); ALBUMIN/GLOBULIN RATIO 0.5 (0.8-2.0); ANION GAP 14.6 mmol/L (8-16); BLOOD UREA NITROGEN 22 mg/dL (7-26); BUN/CREATININE RATIO 29 (6-25); CALCIUM 8.7 mg/dL (8.4-10.2); CARBON DIOXIDE 20 mmol/L (22-29); CHLORIDE 110 mmol/L (98-107); CREATININE, SERUM 0.76 mg/dL (0.57-1.11); EST GLOMERULAR FILTRATION RATE > 60 ML/MIN (60-); GLUCOSE 97 mg/dL (74-118); MAGNESIUM 1.7 MG/DL (1.3-2.1); PHOSPHORUS 3.2 MG/DL (2.3-4.7); POTASSIUM 3.6 mmol/L (3.5-5.1); SODIUM 141 mmol/L (136-145)
[2018-06-17 17:28] LABS: THYROID STIMULATING HORMONE 1.448 uIU/mL (0.350-4.940)
[2018-06-17] MEDS ORDERED: LORAZEPAM INJ 2 MG/ML VIAL IV PRN ×2 (17:45)
[2018-06-17] MEDS ORDERED: ONDANSETRON HCL INJ 2MG/ML 2ML 2 MG/ML VIAL IV PRN (17:45)
[2018-06-17] MEDS ORDERED: SODIUM CHLORIDE FLUSH 10 ML SYR INJ PRN (17:45)
--- OUTSIDE RECORDS SUMMARY | 2018-06-17 17:52 | XMS REPORT | Clinical Summary ---
Author Author KENAN [facility] Address Unknown Phone Unavailable Care Team Providers Care Geospatial Systems Integrator Name Role Phone Sharpless PCP Allergies Comments [...] B BLUE CROSS/BLUE SHIELD BCBS xxxxxxxxxxxx O [phone] [address] [place] [address] [place] Advance Directives For more information, please contact: [phone] [place] [address] Date Inactivated Comments Code Status Date Activated 09/05/2016 7:12 PM Full Code 09/03/2016 5:09 PM This code status was determined by: Patient
[2018-06-17] MEDS ORDERED: HYDROCODON-ACE1 EA11 PO (18:09)
[2018-06-17] MEDS ORDERED: FUROSEMIDE20 MG PO (18:09)
--- NOTE | 2018-06-17 21:51 | Diagnostic Imaging Report ---
CHEST XRAY LINE PLACEMENT, 06/17/2018 8:51 PM Technique: CHEST XRAY LINE PLACEMENT Comparison: 05/29/2018 Clinical history: PICC line placement Findings: See Impression Impression: 1. Lines/Tubes: Left PICC tip overlies the distal SVC. 2. Stable enlarged cardiomediastinal silhouette and tortuous or ectatic aorta. 3. Mild right basilar opacity, possibly atelectasis. No effusion or pneumothorax. Signed by: Dr Radha Jeffries MD on 06/17/2018 9:48 PM
[2018-06-17 21:55] VITALS: BP 122/68
[2018-06-17 22:00] VITALS: BP 127/67
[2018-06-17 22:15] VITALS: BP 122/68
[2018-06-17] MEDS ORDERED: HYDROCODONE/APAP 5MG-325MG TAB PO PRN (23:30)
[2018-06-18] VITALS: BP 104/58
[2018-06-18] MEDS: SODIUM CHLORIDE 0.9% 1000ML 1,000 ML IV SCH ×2 (02:07→03:33)
[2018-06-18 04:00] VITALS: BP 101/53
--- NOTE | 2018-06-18 05:49 | Diagnostic Imaging Report ---
CHEST SINGLE (PORTABLE), 06/18/2018 7:00 AM Technique: CHEST SINGLE (PORTABLE) Comparison: 06/17/2018 Clinical history: Right basilar opacity Findings: See Impression Impression: 1. Lines/Tubes: Left PICC unchanged over the SVC. 2. Enlarged cardiac silhouette and aortic/mediastinal contour, accentuated by portable technique and rotation. 3. Likely minimal right basilar opacity/atelectasis, poorly assessed due to rotation. No effusion or pneumothorax. Signed by: Dr Radha Jeffries MD on 06/18/2018 5:45 AM
[2018-06-18 06:10] LABS: ALANINE AMINOTRANSFERASE 12 IU/L (0-55); ALBUMIN 2.5 g/dL (3.5-5.0); ALBUMIN/GLOBULIN RATIO 0.5 (0.8-2.0); ALKALINE PHOSPHATASE 144 IU/L (40-150); ANION GAP 11.3 mmol/L (8-16); BLOOD UREA NITROGEN 19 mg/dL (7-26); BUN/CREATININE RATIO 26 (6-25); CALCIUM 8.1 mg/dL (8.4-10.2); CARBON DIOXIDE 23 mmol/L (22-29); CHLORIDE 111 mmol/L (98-107); CREATININE, SERUM 0.74 mg/dL (0.57-1.11); EOSINOPHILS # (AUTO) 0.1 (0.0-0.4); EOSINOPHILS % 4.5 % (0.0-6.0); EST GLOMERULAR FILTRATION RATE > 60 ML/MIN (60-); GLUCOSE 73 mg/dL (74-118); HEMATOCRIT 26.2 % (34.2-44.1); HEMOGLOBIN 8.2 g/dL (12.0-16.0); LYMPHOCYTES # (AUTO) 1.1 (1.0-3.2); MEAN CORPUSCULAR HEMOGLOBIN 29.5 pg (28-32); MEAN CORPUSCULAR HGB CONC 31.3 g/dL (31-35); MEAN CORPUSCULAR VOLUME 94.2 fL (81-99); MONOCYTES # (AUTO) 0.5 (0.2-0.8); MONOCYTES % 18.5 % (4.4-11.3); NEUTROPHILS # (AUTO) 1.1 (2.1-6.9); NEUTROPHILS % 36.7 % (38.7-80.0); PLATELET COUNT 153 x10e3/uL (140-360); POTASSIUM 3.3 mmol/L (3.5-5.1); RED BLOOD COUNT 2.78 x10e6/uL (3.6-5.1); RED CELL DISTRIBUTION WIDTH 15.5 % (11.7-14.4); SODIUM 142 mmol/L (136-145)
[2018-06-18 08:49] VITALS: BP 102/54
[2018-06-18 09:00] VITALS: BP 102/54
[2018-06-18] MEDS ORDERED: POTASSIUM CHLORIDE 10MEQ EA PO NR (09:15)
[2018-06-18] MEDS ORDERED: LORAZEPAM 1 MG TAB PO ONE (09:30)
--- NOTE | 2018-06-18 10:04 | History and Physical ---
CHIEF COMPLAINT: Altered mentation. HISTORY OF PRESENT ILLNESS: This is a 77-year-old white woman who sustained 3 witnessed seizures on the day of admission. Two happened at home and 1 in the emergency room. The patient has a history of seizure disorder but unfortunately she has been off her oral lorazepam for a couple of days, which precipitated the seizures according to her adult son. The patient also was taking extra doses of furosemide, which may have caused her to become dehydrated according to her adult son also. In the emergency room, the patient was found to have a white blood cell count of 3400 with 67% segmented neutrophils. The patient's hemoglobin was 9.4 g/dL. The patient's BUN and creatinine were 22 and 0.76 respectively. TSH was normal at 1.448. Urinalysis was unremarkable. Urine drug screen was positive for opiates and benzodiazepines, but she is on hydrocodone as well as lorazepam. The patient underwent a chest x-ray early this morning which revealed slightly enlarged cardiac silhouette with minimal right basilar opacity/atelectasis. No obvious effusions were appreciated. The patient was admitted for further evaluation and treatment. REVIEW OF SYSTEMS GENERAL: Weight has been stable. She has been confused yesterday since she had a seizure. No fever or chills. HEENT: No headache. No vision changes. CARDIOVASCULAR/RESPIRATORY: No chest pain. No shortness of breath or cough. GI: No nausea, vomiting, diarrhea or constipation. : No UTI symptoms. NEUROMUSCULAR: She is globally weak, and she has diffuse muscle pain secondary to her dermatopolymyositis. PAST MEDICAL HISTORY 1. Seizure disorder. 2. Chronic diastolic congestive heart failure. 3. Dermatopolymyositis. 4. Mild cognitive impairment. 5. Physical debility. 6. Chronic atrial fibrillation. 7. Anemia secondary to chronic disease. 8. Anxiety disorder. 9. Major depressive disorder. 10. Hypothyroidism. SURGICAL HISTORY 1. 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 2. Total abdominal hysterectomy. 3. Cholecystectomy. FAMILY HISTORY: Multiple family members with hypertension. The patient's daughter has systemic lupus erythematosus. ALLERGIES 1. HEPARIN. 2. SULFA. 3. DIAZEPAM. 4. MORPHINE. 5. METHOTREXATE. SOCIAL HISTORY: This woman is a . She currently lives at home but has an adult grandson that checks on her on a regular basis. No history of tobacco or alcohol use. The patient has an adult son who is very much involved in her healthcare needs. HOME MEDICATIONS 1. Librium 10 mg every night. 2. Diphenhydramine 25 mg every 4 hours p.r.n. itching. 3. Furosemide 40 mg daily. 4. Lorazepam 1 mg b.i.d. 5. IVIG every month for her dermatopolymyositis. PHYSICAL EXAMINATION GENERAL: She is awake and alert. She is oriented to herself, not time or place. She gets confused easily. She seems to be postictal. VITAL SIGNS: Height is 5 feet 7 inches, weight is 150 pounds, BMI 23. Blood pressure 102/54, pulse 64, respiratory rate 16, temperature 97.8. Oxygen saturation is 95% on room air. INTEGUMENT: Skin is warm and dry. No pallor, jaundice or diaphoresis. HEENT: Anicteric sclerae with moist mucous membranes. The patient is edentulous. NECK: Supple. No evidence of jugular venous distention. CARDIOVASCULAR: Distant heart sounds. Regular rate and rhythm with an S3 gallop. LUNGS: No rales. No rhonchi. No wheezing. ABDOMEN: Benign. EXTREMITIES: No edema or deformity. NEUROLOGIC: Intact. DIAGNOSES 1. Altered mentation secondary to postictal state. 2. Seizure disorder. 3. Chronic diastolic congestive heart failure. 4. Dermatopolymyositis. 5. Mild cognitive impairment. 6. Physical debility. 7. Paroxysmal atrial fibrillation. 8. Anemia secondary to chronic disease. PLAN 1. Will hold furosemide. 2. Gentle intravenous fluids. 3. Replete electrolytes. 4. Restart lorazepam 1 mg by mouth twice a day to help prevent seizures. 5. Will stop intravenous lorazepam. 6. Agree with neurology consult as called in by emergency room physician. 7. Agree with MRI of the brain. 8. Mobilize with physical therapy. 9. Will follow complete blood count. 10. Will follow monthly intravenous immunoglobulin for her dermatopolymyositis. I spent an hour in the care of this patient. Job#: [id number]
--- NOTE | 2018-06-18 10:48 | Diagnostic Imaging Report ---
EXAMINATION: MRI of the brain without contrast. HISTORY: Seizures, dehydration. COMPARISON: None available TECHNIQUE: Pre-contrast: Sagittal T1; axial T1-IR, MPGR, DWI, FLAIR. Thin section coronals of the temporal lobes: FLAIR, T2. FINDINGS: Mass: None. Encephalomalacia: No areas. Ischemic changes: A few scattered and periventricular white matter T2 hyperintense foci, most likely minimal chronic microvascular ischemic changes, within normal limits for age. Calcification/iron: No abnormal deposits. Hippocampi: No disproportionate atrophy or gliosis. Normal fornices. Vascular: No obvious vascular malformation. Normal flow voids in major arteries and veins.[ Martinez matter: No cortical migration anomalies. Other: Brain volume: Mild generalized brain volume loss, without disproportionate lobar atrophy Ventricles: No hydrocephalus or displacement. Foramen Magnum: Unremarkable. Sella: Unremarkable. Skull: No focal lesions. Sinuses/mastoids: No significant inflammatory disease. IMPRESSION: 1. No intracranial mass, mesial temporal sclerosis or migrational abnormalities. 2. Minimal age-related chronic microvascular ischemic changes. 3. Mild generalized brain volume loss without disproportionate lobar atrophy lobar atrophy. Signed by: Dr. Kallie Richardson M.D. on 06/18/2018 10:45 AM
[2018-06-18 16:16] VITALS: BP 120/61
[2018-06-18] MEDS: LORAZEPAM 1 MG TAB PO SCH (16:17)
[2018-06-18] MEDS: LAMOTRIGINE 100 MG TAB PO SCH (18:54)
--- NOTE | 2018-06-18 19:20 | Electroencephalogram ---
DATE OF STUDY: June 18, 2018 REQUESTING PHYSICIAN: Dr. Pamela Hudson. PATIENT HISTORY: This 77-year-old woman with a history of epilepsy is having an EEG for evaluation of epileptiform activity. The patient is taking the following medications which may affect the EEG: Ativan and Librium. TECHNIQUE: This is a routine, portable EEG, recorded digitally using the International 10-20 Electrode Placement System, and done in the inpatient setting with the patient awake. The EEG is adequate for interpretation. DESCRIPTION: Well-organized, well-sustained, 5-6 Hz activity is best seen symmetrically over the posterior head regions. 13-14 Hz activity is intermixed and likely due to medication effect. There are frequent spike- slow wave discharges arising from the bilateral temporoparietal regions independently. Sleep is not recorded. Photic stimulation does not produce a driving response. Hyperventilation is not performed. INTERPRETATION: This electroencephalogram is abnormal for the following reasons: 1. Frequent epileptiform discharges arising independently from the bilateral temporoparietal regions. 2. Diffuse slowing of background electrocortical activity compatible with a moderate generalized encephalopathy. Clinical correlation is recommended. Job#: [id number] EV MTDD
[2018-06-18 20:00] VITALS: BP 132/59
[2018-06-18] MEDS ORDERED: CHLORDIAZEPOXIDE HCL 10 MG CAP PO SCH (21:00)
--- NOTE | 2018-06-18 21:22 | Consultation ---
DATE OF CONSULTATION: June 18, 2018 NEUROLOGY CONSULT NOTE HISTORY OF PRESENT ILLNESS: Ms. Nicholas is a 77-year-old [id number] woman with past medical history significant for epilepsy, admitted to [facility] on June 17, 2018 after experiencing 3 generalized tonic clonic seizures. As stated above, Ms. Nicholas was brought to the emergency center at [facility] on June 17, 2018 after experiencing 3 generalized tonic clonic seizures which will be described further below. The seizures were precipitated by benzodiazepine withdrawal. Usually, Ms. Nicholas takes Ativan 1 mg by mouth twice daily. For the past few days, her grandson has mistakenly given her Lasix rather than Ativan. The sudden cessation of benzodiazepines precipitated the patient's recent seizure activity. Ms. Nicholas was diagnosed with seizures as "a little girl" (approximately 10 to 13 years of age). The patient does not report a history of febrile seizures. There is a positive family history for seizures; Ms. Nicholas daughter has a seizure disorder. The patient does not report head trauma prior to the onset of seizures. She does report a prior history of encephalitis, but this occurred approximately 15 years after she was diagnosed with epilepsy. Ms. Nicholas experiences 3 types of seizures which are described as follows: According to the patient's grandson, Ms. Nicholas does have staring spells. The patient will stare forward, unresponsive, for 10 to 15 seconds at a time. There is no tongue biting or bladder/bowel incontinence. Following this staring spell, the patient immediately resumes whatever activity she was performing prior to the seizure. According to the patient's grandson, these seizures occur daily. At other times, the patient will stare forward, unresponsive, with stereotypic "fidgeting of the hands." This activity will last for approximately 1 minute. There is no tongue biting or bladder or bowel incontinence associated with the aforementioned activity. After 1 minute, the patient becomes responsive, but is confused and disoriented for several minutes. These seizures occur a few times per week. Occasionally, the patient will experience a generalized tonic clonic seizure which is described as follows: Ms. Nicholas will scream, then fall to the ground, unresponsive. Her eyes will roll back in her head and she will have shaking of the arms and legs. There is no tongue biting or foaming saliva associated with these seizures. The patient's grandson has witnessed bladder incontinence, but not bowel incontinence. This activity will persist for 3 to 4 minutes. Afterwards, the patient is disoriented and "gazed." It may take anywhere from 30 minutes to 2 hours for the patient to return to her neurological baseline. Ms. Cristopher zepeda reports these seizures occur occasionally. Ms. Nicholas reports being prescribed Librium 10 mg by mouth daily as a child for seizure prophylaxis. According to the patient and her family, treatment with this medication controlled her seizures until approximately 2012. At that time, she was prescribed Ativan 1 mg by mouth 3 times daily. This has since been weaned to Ativan 1 mg by mouth twice daily. In the past, Ms. Nicholas can recall being treated with Dilantin, but this medication was discontinued due to lack of efficacy. The patient has previously taken either carbamazepine or oxcarbazepine. She does not recall why this medication was discontinued. Ms. Nicholas has taken Keppra, but this medication was discontinued. It is listed as an allergy. However, Ms. Nicholas does not recall what allergic response she had to this medication. REVIEW OF SYSTEMS: Confusion, seizures. Otherwise, the 12-point review of systems is negative. PAST MEDICAL HISTORY: The patient has a reported history of atrial fibrillation, hypothyroidism, mixed depression/anxiety disorder, seizure disorder, and dermatomyositis for which she is treated with monthly IVIG infusions. Other diagnoses listed in Dr. Patterson's history and physical include: Chronic diastolic congestive heart failure, mild cognitive impairment, physical debility, and anemia secondary to chronic disease. PAST SURGICAL HISTORY: Right hip replacement, tonsillectomy, appendectomy, total hysterectomy, bilateral cataract removal. PAST HOSPITALIZATIONS: Surgeries/procedures as listed, childbirth x2, encephalitis at 29 years old. FAMILY MEDICAL HISTORY: There is a strong family history of diabetes mellitus. Ms. Nicholas reports all four of her grandparents as well as both parents had diabetes mellitus. Ms. Nicholas has 1 sister who is alive and has diabetes mellitus. The patient has 2 children, 1 son and 1 daughter, both of whom are living. The patient's son is reportedly healthy. The daughter has systemic lupus erythematosus and seizure disorder. SOCIAL HISTORY: Ms. Nicholas is . A grandson lives with her. The patient is retired. Ms. Nicholas does not report current or prior tobacco, alcohol, or recreational drug use. HOME MEDICATIONS: Librium 10 mg by mouth daily, Benadryl 25 mg by mouth every 4 hours as needed, Lasix 20 mg by mouth twice daily, [place] 1 tablet by mouth every 6 hours as needed, Ativan 1 mg by mouth twice daily. ALLERGIES: HEPARIN, SULFA, DIAZEPAM, KEPPRA, METHOTREXATE, MORPHINE. NO KNOWN FOOD ALLERGIES. NO KNOWN ALLERGIES TO LATEX. NO KNOWN ALLERGIES TO IODINE OR OTHER CONTRAST MATERIALS. PHYSICAL EXAMINATION: VITAL SIGNS: Height 57 inches, weight 152.6 pounds, BMI 23.9 kg/sq m. Blood pressure 120/61 mmHg, pulse 56 beats per minute, respiratory rate 20 breaths per minute, oxygen saturation 97% on room air. GENERAL: The patient is awake and alert, does not appear distressed. Confused. HEENT: Normocephalic, atraumatic. Pupils are surgical. Moist mucous membranes. NECK: Supple. No appreciable thyromegaly. No appreciable carotid bruits. CARDIOVASCULAR: S1, S2, regular rate and rhythm. No murmurs, rubs, or gallops. RESPIRATORY: Clear to auscultation bilaterally. No wheezes, rhonchi, or rales. EXTREMITIES: The skin is warm and dry. No clubbing, cyanosis, or edema. The posterior tibial and dorsalis pedis pulses are 1+ and symmetric. SKIN: There are venous stasis changes to the skin over the bilateral forelegs. NEUROLOGIC EXAMINATION: MEMORY/ATTENTION: The patient is awake and alert, oriented to person. CRANIAL NERVES: Cranial nerve I - not tested. Cranial nerves II, III, IV, and - Pupils are surgical. Extraocular movements intact. No nystagmus. Cranial nerve V - Sensation to light touch is intact in the bilateral V1 through V3 distributions. Strength of the temporalis and masseter muscles is within normal limits. Cranial nerve VII - The face is symmetric as are all facial movements. Strength is within normal limits. Cranial nerve VIII - Hearing is intact to finger rub bilaterally. Cranial nerve IX, X - The soft palate elevates equally and symmetrically. Cranial nerve XI - Normal strength of the bilateral sternocleidomastoid and trapezius muscles. Cranial nerve XII - The tongue protrudes midline and moves symmetrically from side to side. STRENGTH: Bulk is normal. Strength is 5/5 in the bilateral deltoids, biceps, triceps, wrist flexors and extensors, finger flexors and extensors, intrinsic hand muscles, hip flexors, knee flexors and extensors, ankle dorsiflexion and plantarflexion, and intrinsic foot muscles. Tone is normal. DTRs: Deep tendon reflexes are 1+ and symmetric at the triceps, biceps, brachioradialis, and patellas. Deep tendon reflexes are absent and symmetric at the Achilles. Plantar responses are flexor bilaterally. SENSATION: Sensation is intact to light touch in both arms and both legs. CEREBELLAR: Jpiklf-vedg-xpdmxg and heel-dhaliwal movements are intact without dysmetria or other impairment. GAIT: Deferred. SPEECH: Spontaneous speech is normal without appreciable dysarthria or aphasia. Repetition is intact. INVOLUNTARY MOVEMENTS: None. PRONATOR DRIFT: None. LABORATORY DATA: The patient's most recent comprehensive metabolic panel is significant for hypokalemia with a potassium of 3.3, an elevated chloride of 111, a glucose of 73, a calcium of 8.1, albumin of 2.5, and globulin of 4.7. B natriuretic peptide is elevated at 234.4. TSH is 1.448. The CBC with differential and platelets reveals a white blood cell count of 2.92 with a right shift with 36.7% neutrophils, 39.0% lymphocytes, 18.5% monocytes, 4.5% eosinophils, and 1.0% basophils. A urinalysis was unremarkable. A urine drug screen was positive for opiates and benzodiazepines. DIAGNOSTIC STUDIES: 1. Chest x-ray, June 18, 2018: A. Lines/tubes: Left PICC unchanged over the SVC. B. Enlarged cardiac silhouette and aortic/mediastinal contour, accentuated by portable technique and rotation. C. Likely minimal right basilar opacity/atelectasis, poorly assessed due rotation. No effusion or pneumothorax. 2. MRI of the brain without contrast: On my review, there is no evidence of recent or remote large territorial ischemia, hemorrhage, mass, or mass effect. There is moderate diffuse cerebral atrophy with temporal lobe dominance. There is compensatory enlargement of the ventricles. There are few scattered nonspecific T2/FLAIR hyperintense foci of the supratentorial deep white matter compatible with mild chronic small-vessel ischemic disease. 3. Electroencephalogram, June 18, 2018: Frequent epileptiform discharges are seen. Please see the dictated EEG reports for full details. ASSESSMENT AND PLAN: Ms. Nicholas is a 77-year-old [id number] woman with past medical history as detailed, admitted to [facility] on June 17, 2018 following 3 generalized tonic clonic seizures secondary to benzodiazepine withdrawal. At present, the patient is confused and disoriented. Otherwise, there are no focal deficits on neurological examination. The patient's laboratory data and other diagnostic studies have been reviewed and are documented above. Even when compliant with treatment with Librium 10 mg by mouth daily and Ativan 1 mg by mouth twice daily, Ms. Nicholas is experiencing daily seizures as detailed in the history of present illness. Put more simply, the patient's seizures are not controlled. Treatment with an antiepileptic medication to adequately control her seizures is in the patient's best interest. In addition, the possible side effects of benzodiazepines include dizziness, drowsiness, and confusion. Continued treatment with benzodiazepines may precipitate a fall which could be disastrous for the patient. RECOMMENDATIONS: As follows: 1. Begin treatment with lamotrigine 100 mg by mouth twice daily. Titrate the dose of lamotrigine to achieve a serum level of 8 to 10. 2. Once a therapeutic dose of lamotrigine is reached, continue treatment with this dose of medication for 6 weeks. Then wean Ativan as follows: 0.5 mg by mouth in the morning and 1 mg by mouth in the evening for 2 weeks, followed by 0.5 mg by mouth twice daily for 2 weeks, followed by 0 mg by mouth in the morning and 0.5 mg by mouth in the evening for 2 weeks, then stop Ativan. Once treatment with Ativan has been discontinued, wean Librium as follows: 10 mg by mouth every other day for 2 weeks, then stop Librium. 3. Seizure precautions should be reviewed with the patient prior to discharge. Those precautions are as follows: It is recommended the patient sleep 7 to 8 hours per night. The patient should not consume alcohol. The use of stimulants (prescription or recreational) is not recommended. Treatment with Benadryl is not recommended as this medication is known to lower the seizure threshold. Treatment with tramadol is not recommended as this medication is known to lower the seizure threshold. Ms. Nicholas should consult with the prescribing physician or pharmacist before starting any new medications to ensure these medications do not put her at a higher risk for seizures. The patient should be made aware her risk for seizure increases with any infectious illness. The patient should exercise caution when performing activities during which, if she should experience a seizure, put her or someone else at risk for injury or . Ms. Nicholas should not climb up or down ladders or work at any height above the ground. She should not swim unattended. She should not shower or bathe unattended. Lastly, the patient is not allowed to drive unless seizure free on medication for 3 months in the [facility]. It is the patient's responsibility to report her seizure activity to the Department of Public Safety. 4. Defer treatment of the remaining medical comorbidities to the primary and other services following the patient. Thank you for this consultation. I will continue to follow the patient while she remains in the hospital. TIME SPENT: 70 minutes. Job#: [id number] DR FIORE
[2018-06-19] VITALS (8 sets, daily range): BP systolic 95–146; BP diastolic 52–64
[2018-06-19 05:16] LABS: EOSINOPHILS # (AUTO) 0.2 (0.0-0.4); EOSINOPHILS % 6.4 % (0.0-6.0); HEMOGLOBIN 8.5 g/dL (12.0-16.0); LYMPHOCYTES # (AUTO) 0.5 (1.0-3.2); LYMPHOCYTES % 15.7 % (18.0-39.1); MEAN CORPUSCULAR HEMOGLOBIN 29.5 pg (28-32); MEAN CORPUSCULAR HGB CONC 31.5 g/dL (31-35); MEAN CORPUSCULAR VOLUME 93.8 fL (81-99); MONOCYTES # (AUTO) 0.2 (0.2-0.8); MONOCYTES % 7.4 % (4.4-11.3); NEUTROPHILS # (AUTO) 2.1 (2.1-6.9); NEUTROPHILS % 70.5 % (38.7-80.0); PLATELET COUNT 144 x10e3/uL (140-360); RED BLOOD COUNT 2.88 x10e6/uL (3.6-5.1); RED CELL DISTRIBUTION WIDTH 15.4 % (11.7-14.4)
[2018-06-19 05:37] LABS: ALANINE AMINOTRANSFERASE 11 IU/L (0-55); ALBUMIN 2.5 g/dL (3.5-5.0); ALBUMIN/GLOBULIN RATIO 0.5 (0.8-2.0); ALKALINE PHOSPHATASE 149 IU/L (40-150); ANION GAP 11.7 mmol/L (8-16); BLOOD UREA NITROGEN 15 mg/dL (7-26); BUN/CREATININE RATIO 20 (6-25); CALCIUM 8.1 mg/dL (8.4-10.2); CARBON DIOXIDE 20 mmol/L (22-29); CHLORIDE 108 mmol/L (98-107); CREATININE, SERUM 0.75 mg/dL (0.57-1.11); EST GLOMERULAR FILTRATION RATE > 60 ML/MIN (60-); GLUCOSE 77 mg/dL (74-118); POTASSIUM 3.7 mmol/L (3.5-5.1); SODIUM 136 mmol/L (136-145)
[2018-06-19] MEDS: LORAZEPAM 1 MG TAB PO SCH ×2 (09:16→16:46)
[2018-06-19] MEDS: LAMOTRIGINE 100 MG TAB PO SCH ×2 (09:16→16:46)
--- NOTE | 2018-06-19 10:19 | Discharge Summary ---
ADMITTING DIAGNOSES 1. Altered mentation secondary to postictal state. 2. Seizure disorder. 3. Chronic diastolic congestive heart failure. 4. Dermatopolymyositis. 5. Mild cognitive impairment. 6. Physical debility. 7. Paroxysmal atrial fibrillation. 8. Anemia secondary to chronic disease. DISCHARGE DIAGNOSES 1. Seizure disorder. 2. Postictal state, resolved. 3. 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 4. Paroxysmal atrial fibrillation. 5. Chronic diastolic congestive heart failure. 6. Dermatopolymyositis. 7. Anemia secondary to chronic disease. 8. Physical debility. HOSPITAL COURSE: This is a 77-year-old white woman who has a known history of dermatopolymyositis, chronic diastolic congestive heart failure, and paroxysmal atrial fibrillation. She also has mild cognitive impairment as well as overall physical debility. The patient was admitted to [facility] with a diagnosis of altered mentation that was felt to be secondary to being in a postictal state. The patient apparently had 3 witnessed seizures on the day of admission. Family states she inadvertently was given furosemide instead of lorazepam that led to her seizures. The patient states that for many years she has taken lorazepam 1 mg twice a day as well as Librium 10 mg at night which have both prevented her from having seizures. During this hospitalization, the patient was seen by neurology, namely Dr. Pamela Hudson, who highly recommended the patient wean off benzodiazepines, namely Librium and Ativan, slowly over a period of time. The patient also underwent an MRI of the brain during this hospitalization which did not reveal any focal acute abnormalities but did reveal age-related chronic microvascular ischemic changes as well as mild generalized brain loss. The patient also underwent an electroencephalogram during this hospitalization as directed by Dr. Pamela Hudson. The electroencephalogram revealed frequent epileptiform discharges arising independently from the bilateral temporoparietal regions consistent with epilepsy. The electroencephalogram also revealed diffuse slowing of background electrocortical activity compatible with moderate generalized encephalopathy. During this hospitalization, the patient did receive physical therapy. Also, the neurologist, Dr. Pamela Hudson, highly recommended the patient start lamotrigine, namely Lamictal, and as previously stated wean off of benzodiazepines, namely lorazepam and Librium. The patient and the family were adamant that the patient continue lorazepam 1 mg twice a day and Librium 10 mg at night. The patient was also quite emphatic that she not take the lamotrigine, namely Lamictal, as prescribed by neurology. CONDITION ON DISCHARGE: Stable, with overall guarded prognosis. DISCHARGE MEDICATIONS 1. Furosemide 20 mg b.i.d. 2. Lorazepam 1 mg b.i.d. 3. Chlordiazepoxide 10 mg nightly (Librium). 4. Hydrocodone 5 per 325 one pill every 6 hours as needed for severe pain. 5. Intravenous immunoglobulin monthly for her dermatopolymyositis. FOLLOWUP INSTRUCTIONS: The patient will be discharged home today and will be enrolled in home health nursing with home physical therapy. It was explained to the patient's family that her condition on discharge was stable, but she has an overall guarded prognosis. It was also explained to the family that the combination of benzodiazepines, namely lorazepam and Librium, coupled with hydrocodone placed the patient at high risk for altered mentation as well as risk of falls. DYAN LOPEZ MD Job#: [id number] [employer]
== END 2018-06-19 17:31 | disposition home or self-care (01) | DRG 101 ==
LOC: ER 13:32 → ERHOLD 17:33 → MED/SURG 18:34 → MED/SURG2 06-18 11:20
PROVIDERS: ADMIT Internal Medicine; ATTEND Internal Medicine
PROC: 02HV33Z Insertion of Infusion Device into Superior Vena Cava, Percutaneous Approach (ICD-10-PCS; principal; 2018-06-17)
DX: G40.409 Other generalized epilepsy and epileptic syndromes, not intractable, without status epilepticus (principal); I50.32 Chronic diastolic (congestive) heart failure; M33.90 Dermatopolymyositis, unspecified, organ involvement unspecified; I11.0 Hypertensive heart disease with heart failure; I69.319 Unspecified symptoms and signs involving cognitive functions following cerebral infarction; D63.8 Anemia in other chronic diseases classified elsewhere; I48.0 Paroxysmal atrial fibrillation; E03.9 Hypothyroidism, unspecified; R53.81 Other malaise; F41.8 Other specified anxiety disorders; Z88.5 Allergy status to narcotic agent; Z88.2 Allergy status to sulfonamides; Z88.8 Allergy status to other drugs, medicaments and biological substances; T42.4X6A Underdosing of benzodiazepines, initial encounter; Z91.138 Patient's unintentional underdosing of medication regimen for other reason; Y92.009 Unspecified place in unspecified non-institutional (private) residence as the place of occurrence of the external cause
CPT/HCPCS: 36415; 36569; 70551; 71045; 80053; 80307; 81001; 83735; 83880; 84100; 84443; 85025; 95816; 97139; 99284; J2060; J7030; J7050; Q2009

== ENCOUNTER 2019-10-30 11:48 | Inpatient (IN) | payer MEDICARE, BC ==
[~2019-10-30] VITALS: Ht 170.2 cm; Wt 78.0 kg
[~2019-10-30 11:48] MED LIST changes: +HYDROCODON-ACE1 EA11 PO
--- OUTSIDE RECORDS SUMMARY | 2019-10-30 11:51 | XMS REPORT | Clinical Summary ---
Author Author [facility] Address Unknown Phone Unavailable Care Team Providers Care Corporate Planning Manager Name Role Phone Sharpless PCP Allergies Comments [...] Not on file Results Not on fileafter 10/29/2018 Insurance Payer Benefit Subscriber ID Type Phone Address Plan / Group MEDICARE MEDICARE A xxxxxxxxxx Medicare B BLUE CROSS/BLUE SHIELD BCBS xxxxxxxxxxxx PPO [address] [place] [address] [place] Advance Directives For more information, please contact: [phone] [place] [address] Date Inactivated Comments Code Status Date Activated 09/05/2016 7:12 PM Full Code 09/03/2016 5:09 PM This code status was determined by: Patient
--- OUTSIDE RECORDS SUMMARY | 2019-10-30 11:52 | XMS REPORT | Continuity of Care Document ---
Author Author [facility] t Organization [facility] Address [address] [place] [address] Phone Unavailable Care Team Providers Care Licsw Name Role Phone DYAN LOPEZ MD PCP DYAN LOPEZ Attphys Unavailable OFORDJO ANN FRANK Attphys Unavailable LAZARIDIS, DENISE Attphys Unavailable DYAN LOPEZ Admphys Unavailable LAZARIMIKY, DENISE Admphys Unavailable Payers Payer Name Policy Type Policy Number Effective Date Expiration Date [facility] [id number] 2014 00:00:00 [facility] Medicare A & B [id number] 2007 00:00:00 [facility] Problems Condition Name Condition Details Condition Category Status Onset Date Resolution Date Last Treatment Date Treating Clinician Comments Source Seizure Seizure Disease Active 2016-09-03 00:00:00 [facility] Dehydration Dehydration Problem Active [facility] Status epilepticus Status epilepticus Problem Active [facility] Allergies, Adverse Reactions, Alerts Allergy Name Allergy Type Status Severity Reaction(s) Onset Date Inacti ve Date Treating Clinician Comments Source Heparin Analogues Allergy to Substance Active Severe 2018-05-22 8 00:00:00 [facility] Sulfa (Sulfonamide Antibiotics) Allergy to Substance Active Moder ate 2018-06-17 00:00:00 [facility] Diazepam Allergy to Substance Active 2018-06-17 00:00:00 [facility] Morphine Allergy to Substance Active Moderate 2018-06-17 00:00:00 [facility] Methotrexate Allergy to Substance Active 2018-06-17 00:00:0 0 [facility] Levetiracetam Allergy to Substance Active 2018-06-17 00:00: 00 [facility] Celecoxib Propensity to adverse reactions Active 2016-09-22 00:00:00 [facility] Azathioprine Sodium Propensity to adverse reactions Active 2016-09-22 00:00:00 [facility] Levofloxacin Propensity to adverse reactions Active 201 11-22-04 00:00:00 [facility] Methotrexate Analogues Propensity to adverse reactions Active 2016-09-22 00:00:00 [facility] Sulfa (Sulfonamide Antibiotics) Propensity to adverse reactions Activ e 2016-09-22 00:00:00 [facility] Rivaroxaban Propensity to adverse reactions Active 2016 00:00:00 [facility] Heparin Analogues Propensity to adverse reactions Active 2016-09-03 00:00:00 [facility] Morphine Drug Intolerance Active Anxiety 2016-09-03 00:00:00 [facility] Social History Social Habit Start Date Stop Date Quantity Comments Source Sex Assigned At [facility] Medications Ordered Medication Name Filled Medication Name Start Date Stop Da te Current Medication? Ordering Clinician Indication Dosage Frequency Signature (SIG) Comments Components Source LORazepam (ATIVAN) 0.5 MG tablet 2016-09-22 18:50:08 Yes .5mg Take 0.5 mg by mouth every 6 (six) hours as needed for Anxiety. [facility] chlordiazePOXIDE (LIBRIUM) 10 MG capsule 2016-09-22 18:50:08 Yes 10mg Take 10 mg by mouth 3 (three) times daily as needed for Anxiety. [facility] furosemide (LASIX) 20 MG tablet 2016-09-22 18:50:08 Yes 20mg Q.5D Take 20 mg by mouth 2 (two) times daily. [facility] HYDROcodone-acetaminophen (NORCO) 5-325 mg per tablet 2016-09-22 18:50:08 Yes 1{tbl} Take 1 tablet by mouth ev joe 6 (six) hours as needed for Pain. [facility] metoprolol (TOPROL-XL) 25 MG 24 hr tablet 2016-09-22 18:50:08 Yes 25mg QD Take 25 mg by mouth daily. [facility] ibuprofen (ADVIL,MOTRIN) 800 MG tablet 2016-09-22 18:50:08 Yes 800mg Take 800 mg by mouth every 6 (six) hours as needed for Pain. [facility] predniSONE (DELTASONE) 10 MG tablet 2016-09-04 16:48:05 Yes 10mg QD Take 10 mg by mouth daily . [facility] aspirin 81 MG chewable tablet 2016-09-04 11:43:48 Yes 81mg QD Take 81 mg by mouth daily. [facility] Chlordiazepoxide Hcl 10 Mg Capsule Chlordiazepoxide Hcl 10 Mg Capsule Yes 10 Daily [facility] Diphenhydramine Hcl (Benadryl) 25 Mg Capsule Diphenhyd ramine Hcl (Benadryl) 25 Mg Capsule Yes [address] [facility] Furosemide 20 Mg Tablet Furosemide 20 Mg Tablet Yes 20 Twice A Day [facility] Hydrocodone Bit/Acetaminophen (Hydrocodon-Acetaminophe n 5-325) 1 Each Tablet Hydrocodone Bit/Acetaminophen (Hydrocodon-Acetaminophen 5-325) 1 Each Tablet Yes 1 Every 6 Hours as needed for Pain [facility] Lorazepam (Ativan) 1 Mg Tablet Lorazepam (Ativan) 1 Mg Tablet Yes 1 Twice A Day [facility] Furosemide (Lasix) 40 Mg Tablet, 10 Mg Oral Furosemide (Lasix) 40 Mg Tablet, 10 Mg Oral 2018-06-17 00:00:00 No 10 Daily [facility] Amiodarone Hcl 200 Mg Tablet, 200 Mg Oral Amiodarone H cl 200 Mg Tablet, 200 Mg Oral 2018-05-27 00:00:00 No 200 Daily [facility] Aspirin (Lo-Dose Aspirin Ec) 81 Mg Tablet., 81 Mg Or al Aspirin (Lo-Dose Aspirin Ec) 81 Mg Tablet., 81 Mg Oral 2018-05-27 00:00:00 No 81 Daily [facility] Chlordiazepoxide/Clidinium Br (Librax Capsule) 1 Each Capsule, 1 Tab Oral Chlordiazepoxide/Clidinium Br (Librax Capsule) 1 Each Capsule, 1 Tab Oral 2018-05-27 00:00:00 No 1 Daily [facility] Digoxin 125 Mcg Tablet, 125 Mcg Oral Digoxin 125 Mcg Tablet, 125 Mcg Oral 2018-05-27 00:00:00 No 125 Daily [facility] Famotidine 20 Mg Tab, 20 Mg Oral Famotidine 20 Mg Tab, 20 Mg Ora l 2018-05-27 00:00:00 No 20 Twice A Day [facility] Ferrous Sulfate (Iron) 325 Mg Tablet, 325 Mg Oral Ferr ous Sulfate (Iron) 325 Mg Tablet, 325 Mg Oral 2018-05-27 00:00:00 No 325 Ada y [facility] Furosemide 20 Mg Tablet, 20 Mg Oral Furosemide 20 Mg Tablet, 20 Mg Oral 2018-05-27 00:00:00 No 20 Daily [facility] Lamotrigine (Lamictal) 150 Mg Tablet, 150 Mg Oral Lamo trigine (Lamictal) 150 Mg Tablet, 150 Mg Oral 2018-05-27 00:00:00 No 150 Twic e A Day [facility] Lorazepam (Ativan) 2 Mg/1 Ml Vial, 2 Mg Sub-Q Lorazepa m (Ativan) 2 Mg/1 Ml Vial, 2 Mg Sub-Q 2018-05-27 00:00:00 No 2 Q2prn [facility] Meclizine Hcl (Antivert) 25 Mg Tablet, 25 Mg Oral Mecl izine Hcl (Antivert) 25 Mg Tablet, 25 Mg Oral 2018-05-27 00:00:00 No 25 Twice A Day [facility] Metoprolol Tartrate 25 Mg Tablet, 12.5 Mg Oral Metopro lol Tartrate 25 Mg Tablet, 12.5 Mg Oral 2018-05-27 00:00:00 No 12.5 Daily [facility] Potassium Chloride 10 Meq Tab.er.prt, 10 Mg Oral Potas sium Chloride 10 Meq Tab.er.prt, 10 Mg Oral 2018-05-27 00:00:00 No 10 D aily [facility] Prednisone 10 Mg Tab, 15 Mg Oral Prednisone 10 Mg Tab, 15 Mg Ora l 2018-05-27 00:00:00 No 15 Daily [facility] Tramadol Hcl (Ultram 50MG*) 50 Mg Tab, 50 Mg Oral Tram adol Hcl (Ultram 50MG*) 50 Mg Tab, 50 Mg Oral 2018-05-27 00:00:00 No 50 Q6prn [facility] Enalapril Maleate (Vasotec) 20 Mg Tablet, 20 Mg Oral E nalapril Maleate (Vasotec) 20 Mg Tablet, 20 Mg Oral 2013-03-31 00:00:00 No 20 Daily [facility] Phenytoin Sodium Extended (Dilantin) 100 Mg Capsule, 1 00 Mg Oral Phenytoin Sodium Extended (Dilantin) 100 Mg Capsule, 100 Mg Oral 2013-03-21 1 00:00:00 No 100 Three Times A Day [facility] Prednisone 10 Mg Tab, 15 Mg Oral Prednisone 10 Mg Tab, 15 Mg Ora l 2013-03-31 00:00:00 No 15 Daily [facility] Warfarin Sodium (Coumadin) 4 Mg Tablet, 4 Mg Oral Warf aguilar Sodium (Coumadin) 4 Mg Tablet, 4 Mg Oral 2013-03-31 00:00:00 No 4 Lesa ly At 1700 [facility] Aspirin 81 Mg Tab.chew, 81 Mg Oral Aspirin 81 Mg Tab.chew, 81 Mg Oral 2013-03-05 00:00:00 No 81 Daily [facility] Enalapril Maleate 20 Mg Tablet, 20 Mg Oral Enalapril M aleate 20 Mg Tablet, 20 Mg Oral 2013-02-23 00:00:00 No 20 Daily [facility] Hydroxyzine Hcl 25 Mg Tablet, 25 Mg Oral Hydroxyzine H cl 25 Mg Tablet, 25 Mg Oral 2013-02-23 00:00:00 No 25 As Needed [facility] Levothyroxine Sodium 50 Mcg Tablet, 50 Mcg Oral Levoth yroxine Sodium 50 Mcg Tablet, 50 Mcg Oral 2013-02-23 00:00:00 No 50 Ada y [facility] Cyclobenzaprine Hcl 10 Mg Tablet, 10 Mg Oral Cyclobenz aprine Hcl 10 Mg Tablet, 10 Mg Oral 2013-02-22 00:00:00 No 10 As Needed [facility] Iron,Carbonyl (Iron) 45 Mg Tablet, 65 Mg Oral Iron,Car bonyl (Iron) 45 Mg Tablet, 65 Mg Oral 2013-02-22 00:00:00 No 65 Daily [facility] Procedures Procedure Date / Time Performed Performing Clinician [facility] e Magnetic resonance imaging of brain without contrast 2018-05 00:00:00 AXEL VILLA [facility] Computed tomography of brain without radiopaque contrast 201 01-19-06 00:00:00 LEELA ATKINSON [facility] Computed tomography of cervical spine without contrast 05-26 00:00:00 LEELA ATKINSON [facility] Computed tomography of thoracic spine without contrast 05-26 00:00:00 LEELA ATKINSON [facility] Magnetic resonance imaging of thoracic spine without t hen with contrast 2018-05-26 00:00:00 YENNY JAY [facility] Encounters Start Date/Time End Date/Time Encounter Type Admission Type [facility] Care Department Encounter ID Source 2018-06-17 17:33:00 2018-06-19 17:31:00 Discharged Inpatient 1 [facility] [id number] [facility] 2018-05-27 09:44:00 2018-05-30 17:44:00 Discharged Inpatient 1 [facility] [id number] [facility] Results Test Description Test Time Test Comments Results Result Comments Source Sodium Level 2018-06-19 05:39:00 Test Item Sodium Level (test code = 2951-2) 136 136-145 [facility] [id number] 05:39:00* Test Item Value Reference Range Interpretation Comments Potassium Level (test code = 2823-3) 3.7 3.5-5.1 [facility]loride [id number] 05:39:00* Test Item Value Reference Range Interpretation Comments Chloride Level (test code = 2075-0) 108 98-107 H [facility] TempleCarbon Dioxide [id number] 05:39:00* Test Item Value Reference Range Interpretation Comments Carbon Dioxide Level (test code = 2028-9) 20 22-29 L [facility] TempleAnion [id number] 05:39:00* Test Item Value Reference Range Interpretation Comments Anion Gap (test code = 17924-4) 11.7 8-16 [facility] Temple[facility] Urea Bfieqkir4561-29-34 05:39:00* Test Item Value Reference Range Interpretation Comments Blood Urea Nitrogen (test code = 3094-0) 15 7-26 [facility] Temple[facility]inine2019-01-30 05:39:00* Test Item Value Reference Range Interpretation Comments Creatinine (test code = 2160-0) 0.75 0.57-1.11 [facility] Temple[facility]UN/Creatinine [id number] 05:39:00* Test Item Value Reference Range Interpretation Comments BUN/Creatinine Ratio (test code = 3097-3) 20 6-25 [facility] Temple[facility]at Glomerular Filtration Rate 2018-06-19 05:39:00* Test Item Value Reference Range Interpretation Comments Estimat Glomerular Filtration Rate (test code = 496227343) > 60 >60 Ranges were taken from the National Kidney Disease Education Program and the [facility] [employer] literature.Reference ranges:60 or greater: Pzokhr04-99 ( for 3 consecutive months): Chronic kidney disease 15 or less: Kidney failureBaylor Scott & White Medical Center – TempleGlucose Awego3135-30-86 05:39:00* Test Item Value Reference Range Interpretation Comments Glucose Level (test code = VGM4360) 77 74-118 [facility] TempleCalcium Ebhjs2875-62-59 05:39:00* Test Item Value Reference Range Interpretation Comments Calcium Level (test code = 67504-5) 8.1 8.4-10.2 L [facility] TempleTotal Qkikrplvw6322-16-63 05:39:00* Test Item Value Reference Range Interpretation Comments Total Bilirubin (test code = 1975-2) 0.4 0.2-1.2 [facility] TempleAspartate Amino Transf (AST/SGOT) 2018-06-19 05:39:00* Test Item Value Reference Range Interpretation Comments Aspartate Amino Transf (AST/SGOT) (test code = Aspartate Amino Transf (AST/SGOT)) 22 5-34 [facility] TempleAlanine Aminotransferase (ALT/SGPT) 2018-06-19 05:39:00* Test Item Value Reference Range Interpretation Comments Alanine Aminotransferase (ALT/SGPT) (test code = 1742-6) 11 0-55 [facility] TempleTotal Cjgkepo1428-72-28 05:39:00* Test Item Value Reference Range Interpretation Comments Total Protein (test code = 2885-2) 7.4 6.5-8.1 [facility] TempleAlbumin2019-01-30 05:39:00* Test Item Value Reference Range Interpretation Comments Albumin (test code = 1751-7) 2.5 3.5-5.0 L [facility] TempleGlobulin2019-01-30 05:39:00* Test Item Value Reference Range Interpretation Comments Globulin (test code = 17316-4) 4.9 2.3-3.5 H [facility] TempleAlbumin/Globulin Vbrmx3617-30-25 05:39:00 * Test Item Value Reference Range Interpretation Comments Albumin/Globulin Ratio (test code = 1759-0) 0.5 0.8-2.0 L [facility] TempleAlkaline Pbzlnbkwkgs3028-71-38 05:39:00* Test Item Value Reference Range Interpretation Comments Alkaline Phosphatase (test code = 6768-6) 149 40-150 [facility] TempleWhite Blood Mzvhn7449-78-34 05:18:00* Test Item Value Reference Range Interpretation Comments White Blood Count (test code = 6690-2) 2.99 4.8-10.8 L [facility] TempleRed Blood Qpgec9548-12-38 05:18:00* Test Item Value Reference Range Interpretation Comments Red Blood Count (test code = 789-8) 2.88 3.6-5.1 L [facility] TempleHemoglobin2019-01-30 05:18:00* Test Item Value Reference Range Interpretation Comments Hemoglobin (test code = 31364-6) 8.5 12.0-16.0 L [facility] TempleHematocrit2019-01-30 05:18:00* Test Item Value Reference Range Interpretation Comments Hematocrit (test code = 4544-3) 27.0 34.2-44.1 L [facility] TempleMean Corpuscular Jzghqr5192-02-78 05:18:00* Test Item Value Reference Range Interpretation Comments Mean Corpuscular Volume (test code = 787-2) 93.8 81-99 [facility] TempleMean Corpuscular Oiycgwyftm7781-77-91 05:18:00* Test Item Value Reference Range Interpretation Comments Mean Corpuscular Hemoglobin (test code = 785-6) 29.5 28-32 [facility] TempleMean Corpuscular Hemoglobin Concent 2018-06-19 05:18:00* Test Item Value Reference Range Interpretation Comments Mean Corpuscular Hemoglobin Concent (test code = 786-4) 31.5 31-35 [facility] TempleRed Cell Distribution [id number] 05:18:00* Test Item Value Reference Range Interpretation Comments Red Cell Distribution Width (test code = 92471-9) 15.4 11.7 -14.4 H [facility] TemplePlatelet Dmwlg4928-18-29 05:18:00* Test Item Value Reference Range Interpretation Comments Platelet Count (test code = 777-3) 144 140-360 [facility] TempleNeutrophils (%) (Auto)2018-06-19 05:18:00 * Test Item Value Reference Range Interpretation Comments Neutrophils (%) (Auto) (test code = 11002-3) 70.5 38.7-80.0 [facility] TempleLymphocytes (%) (Auto)2018-06-19 05:18:00 * Test Item Value Reference Range Interpretation Comments Lymphocytes (%) (Auto) (test code = 736-9) 15.7 18.0-39.1 L [facility] TempleMonocytes (%) (Auto)2018-06-19 05:18:00* Test Item Value Reference Range Interpretation Comments Monocytes (%) (Auto) (test code = 5905-5) 7.4 4.4-11.3 [facility] TempleEosinophils (%) (Auto)2018-06-19 05:18:00 * Test Item Value Reference Range Interpretation Comments Eosinophils (%) (Auto) (test code = 713-8) 6.4 0.0-6.0 H [facility] TempleBasophils (%) (Auto)2018-06-19 05:18:00* Test Item Value Reference Range Interpretation Comments Basophils (%) (Auto) (test code = 706-2) 0.0 0.0-1.0 [facility] TempleIM GRANULOCYTES %2018-06-19 05:18:00* Test Item Value Reference Range Interpretation Comments IM GRANULOCYTES % (test code = IM GRANULOCYTES %) 0.0 0.0- 1.0 [facility] TempleNeutrophils # (Auto)2018-06-19 05:18:00* Test Item Value Reference Range Interpretation Comments Neutrophils # (Auto) (test code = 751-8) 2.1 2.1-6.9 [facility] TempleLymphocytes # (Auto)2018-06-19 05:18:00* Test Item Value Reference Range Interpretation Comments Lymphocytes # (Auto) (test code = 83286-0) 0.5 1.0-3.2 L [facility] TempleMonocytes # (Auto)2018-06-19 05:18:00* Test Item Value Reference Range Interpretation Comments Monocytes # (Auto) (test code = 742-7) 0.2 0.2-0.8 [facility] TempleEosinophils # (Auto)2018-06-19 05:18:00* Test Item Value Reference Range Interpretation Comments Eosinophils # (Auto) (test code = 711-2) 0.2 0.0-0.4 [facility] TempleBasophils # (Auto)2018-06-19 05:18:00* Test Item Value Reference Range Interpretation Comments Basophils # (Auto) (test code = 704-7) 0.0 0.0-0.1 [facility] TempleAbsolute Immature Granulocyte (auto 2018-06-19 05:18:00* Test Item Value Reference Range Interpretation Comments Absolute Immature Granulocyte (auto (mikey t code = Absolute Immature Granulocyte (auto) 0 0-0.1 [facility] TempleB-Type Natriuretic Duboqja8732-70-75 11:00:00* Test Item Value Reference Range Interpretation Comments B-Type Natriuretic Peptide (test code = 40909-5) 234.4 0-100 H [facility] TempleMRI BRAIN [id number] 10:41:00 [place] [address] Patient Name: KAMI SKINNER MR #: [id number] : 1940 Age/Sex: 77/F Req #: [id number] Adm Physician: DYAN LOPEZ MD Ordered by: AXEL VILLA M.D. Report #: [id number] Location: MED/SURG Room/Bed: [facility] Procedure: [id number] MRI/MRI BRAIN WO Exam Date: Exam Time: REPORT STATUS: Signed EXAMINATION: MRI of the brain without contrast. HISTORY: Seizures, dehydration. COMPARISO N: None available TECHNIQUE: Pre-contrast: Sagittal T1; axial T1-IR, MPGR, DWI , FLAIR. Thin section coronals of the temporal lobes: FLAIR, T2. FINDIN GS: Mass: None. Encephalomalacia: No areas. Ischemic clementina nges: A few scattered and periventricular white matter T2 hyperintense foci, m ost likely minimal chronic microvascular ischemic changes, within normal limit s for age. Calcification/iron: No abnormal deposits. Hippocampi: N o disproportionate atrophy or gliosis. Normal fornices. Vascular: No obv ious vascular malformation. Normal flow voids in major arteries and veins.[ Martinez matter: No cortical migration anomalies. Other: Brain vol ume: Mild generalized brain volume loss, without disproportionate lobar atroph y Ventricles: No hydrocephalus or displacement. Foramen Magnum: U nremarkable. Sella: Unremarkable. Skull: No focal lesions. Sinuses/mastoids: No significant inflammatory disease. IMPRESSION: 1. No intracranial mass, mesial temporal sclerosis or migrational abnormalities. 2. Minimal age-related chronic microvascular ischemic changes. 3. M ild generalized brain volume loss without disproportionate lobar atrophy lobar atrophy. Signed by: Dr. Dom Richardson M.D. on 06/18/2018 10:45 AM Dic tated By: DOM RICHARDSON MD 1 045 Transcribed By: SHANA on 06/18/18 1045 COPY TO: AXEL VILLA MD CHEST SINGLE (PORTABLE)2018-06-18 05:44:00 [place] [address] Patient Name: KAMI SKINNER MR #: [id number] : 1940 Age/Sex: 77/F Req #: [id number] Adm Physician: DYAN LOPEZ MD Ordered by: DYAN LOPEZ MD Report #: [id number] Location: MED/SURG Room/Bed: [facility] Procedure: [id number] DX /CHEST SINGLE (PORTABLE) Exam Date: 06/18/18 Exam Ti me: 0520 REPORT STATUS: Signed C HEST SINGLE (PORTABLE), 06/18/2018 7:00 AM Technique: CHEST SINGLE (PORTABLE ) Comparison: 06/17/2018 Clinical history: Right basilar opacity Finding s: See Impression Impression: 1. Lines/Tubes: Left PICC unchanged over the SVC. 2. Enlarged cardiac silhouette and aortic/mediastinal contour, accent uated by portable technique and rotation. 3. Likely minimal right basilar op acity/atelectasis, poorly assessed due to rotation. No effusion or pneumothora x. Signed by: Dr Mervat Bishop MD on 06/18/2018 5:45 AM Dictated By: MERVAT BISHOP MD 45 Transcribed By: SHANA on 06/18/18544 COPY TO: DYAN LOPEZ MD CHEST XRAY LINE [id number] 21:35:00 [place] [address] Patient Name: KAMI SKINNER MR #: [id number] : 1940 Age/Sex: 77/F Req #: [id number] Adm Physician: DYAN LOPEZ MD Ordered by: EMMY SIMTH MD Report #: [id number] Location: MED/SURG Room/Bed: [facility] Procedure: [id number] DX/CHEST XRAY LINE PLACEMENT Exam Date: 06/17/18 Exam Time: 0 REPORT STATUS: Si gned CHEST XRAY LINE PLACEMENT, 06/17/2018 8:51 PM Technique: CHEST XRAY LINE PLACEMENT Comparison: 05/29/2018 Clinical history: PICC line placement Findings: See Impression Impression: 1. Lines/Tubes: Left PICC tip o verlies the distal SVC. 2. Stable enlarged cardiomediastinal silhouette and to rtuous or ectatic aorta. 3. Mild right basilar opacity, possibly atelectasis. No effusion or pneumothorax. Signed by: Dr Mervat Bishop MD on 06/17/2018 9:48 PM Dictated By: MERVAT BISHOP MD 47 Transcribed By: SHANA on 06/17/182147 C OPY TO: EMMY SMITH MD Thyroid Stimulating Hormone (TSH) 2018-06-17 17:29:00* Test Item Value Reference Range Interpretation Comments Thyroid Stimulating Hormone (TSH) (test code = 95364-0) 1.448 0.350-4.940 [facility] TemplePhosphorus [id number] 17:11:00* Test Item Value Reference Range Interpretation Comments Phosphorus Level (test code = ULZ5913) 3.2 2.3-4.7 [facility] TempleMagnesium [id number] 17:11:00* Test Item Value Reference Range Interpretation Comments Magnesium Level (test code = 75015-7) 1.7 1.3-2.1 [facility] TempleUrine [id number] 17:01:00* Test Item Value Reference Range Interpretation Comments Urine Color (test code = 5778-6) YELLOW YELLOW [facility] TempleUrine [id number] 17:01:00* Test Item Value Reference Range Interpretation Comments Urine Clarity (test code = 88064-3) HAZY CLEAR [facility] TempleUrine Specific [id number] 17:01:00 * Test Item Value Reference Range Interpretation Comments Urine Specific Cedar (test code = 5811-5) 1.010 1.010-1.02 5 [facility] TempleUrine [id number] 17:01:00* Test Item Value Reference Range Interpretation Comments Urine pH (test code = 49116-7) 5 5-7 [facility] Temple[facility] Leukocyte Ixunkrra4510-03-20 17:01:00* Test Item Value Reference Range Interpretation Comments Urine Leukocyte Esterase (test code = 5799-2) NEGATIVE NEGATIVE [facility] Temple[facility] Pqfahnm0575-84-85 17:01:00* Test Item Value Reference Range Interpretation Comments Urine Nitrite (test code = 52264-3) NEGATIVE NEGATIVE [facility] Temple[facility] Eribuyn7724-21-61 17:01:00* Test Item Value Reference Range Interpretation Comments Urine Protein (test code = 5804-0) NEGATIVE NEGATIVE [facility] Temple[facility] Glucose (UA)2018-06-17 17:01:00* Test Item Value Reference Range Interpretation Comments Urine Glucose (UA) (test code = 2349-9) NEGATIVE NEGATIVE [facility] Temple[facility] Pxovtcq8058-07-29 17:01:00* Test Item Value Reference Range Interpretation Comments Urine Ketones (test code = 37199-1) NEGATIVE NEGATIVE [facility] Opiates Giuepm8624-66-81 17:01:00* Test Item Value Reference Range Interpretation Comments Urine Opiates Screen (test code = 98284-8) POSITIVE NEGATIVE H ALL TESTS PERFORMED MANUALLY ON [employer] TOX/SEE TEST This test provides only a sc reen. Positive results should be repeated by a confirmatory test.[facility] Temple[facility] Barbiturates Jtdzvp5676-73-08 17:01:00* Test Item Value Reference Range Interpretation Comments Urine Barbiturates Screen (test code = 250841795) NEGATIVE NEGA TIVE [facility] Temple[facility] Phencyclidine Xnobvj8156-27-40 17:01:00* Test Item Value Reference Range Interpretation Comments Urine Phencyclidine Screen (test code = 99989-3) NEGATIVE NEGAT ORESTES [facility] Temple[facility] Amphetamines Ewpeim0887-13-07 17:01:00* Test Item Value Reference Range Interpretation Comments Urine Amphetamines Screen (test code = 77424-9) NEGATIVE NEGATI VE [facility] Temple[facility] Methamphetamines Ysrbuw1992-17-75 17:01:00* Test Item Value Reference Range Interpretation Comments Urine Methamphetamines Screen (test code = Urine Metha mphetamines Screen) NEGATIVE NEGATIVE [facility] Temple[facility] Benzodiazepines Lweljb5259-77-55 17:01:00* Test Item Value Reference Range Interpretation Comments Urine Benzodiazepines Screen (test code = 53601-7) POSITIVE NEG ATIVE H This test provides only a screen. Positive results should be repeated by a confi rmatory test.[facility] Temple[facility] Cocaine Screen 2018-06-17 17:01:00* Test Item Value Reference Range Interpretation Comments Urine Cocaine Screen (test code = 3398-5) NEGATIVE NEGATIVE [facility] Temple[facility] Cannabinoids Yciohx1646-92-67 17:01:00* Test Item Value Reference Range Interpretation Comments Urine Cannabinoids Screen (test code = 99995-3) NEGATIVE NEGATI VE THESE RESULTS ARE FOR MEDICAL TREATMENT ONLYTHIS REPORT CONTAINS UNCONFIR MED SCREENING RESULTS*POSITIVE RESULTS WILL BE CONFIRMED BY REFERENCE LAB UPON R EQUEST CUT-OFFDRUG CLASS CONCENTRATION ng/mLAmphetamines 1000Methamphetamines 1000Cocaine 300Opiate 300Phencyc lidine 25Cannabinoid 50Barbiturates 300Benzodiazepine 300Methadone 300[facility] Methadone Jwiqje2968-17-78 17:01:00* Test Item Value Reference Range Interpretation Comments Urine Methadone Screen (test code = 94910-8) NEGATIVE NEGATIVE THESE RESULTS ARE FOR MEDICAL TREATMENT ONLYTHIS REPORT CONTAINS UNCONFIR MED SCREENING RESULTS*POSITIVE RESULTS WILL BE CONFIRMED BY REFERENCE LAB UPON R EQUEST CUT-OFFDRUG CLASS CONCENTRATION ng/mLAmphetamines 1000Methamphetamines 1000Cocaine Metabolite 300Opiate 300Phencyc lidine 25Cannabinoid 50Barbiturates 300Benzodiazepine 300Methadone 300[facility] Yoayekxauzli6924-49-84 17:01:00* Test Item Value Reference Range Interpretation Comments Urine Urobilinogen (test code = 86705-5) 0.2 0.2-1 [facility] Temple[facility] Hfnqpbiiq1630-58-69 17:01:00* Test Item Value Reference Range Interpretation Comments Urine Bilirubin (test code = 1978-6) NEGATIVE NEGATIVE [facility] Temple[facility] Smdvp3466-84-83 17:01:00* Test Item Value Reference Range Interpretation Comments Urine Blood (test code = 07477-8) NEGATIVE NEGATIVE [facility] Temple[facility] NWD7681-93-32 17:01:00* Test Item Value Reference Range Interpretation Comments Urine WBC (test code = 5821-4) NONE 0-5 [facility] Temple[facility] FTU7021-42-23 17:01:00* Test Item Value Reference Range Interpretation Comments Urine RBC (test code = 66140-2) NONE 0-5 [facility] Temple[facility] Fskcgriv3820-73-27 17:01:00* Test Item Value Reference Range Interpretation Comments Urine Bacteria (test code = 01700-4) RARE NONE [facility] Temple[facility] Epithelial Gsduq4224-92-88 17:01:00 * Test Item Value Reference Range Interpretation Comments Urine Epithelial Cells (test code = 06813-5) NONE NONE [facility] Temple[facility] Amorphous Dhapcagi7362-24-47 17:01:00* Test Item Value Reference Range Interpretation Comments Urine Amorphous Sediment (test code = 8246-1) MANY FEW H [facility] Oltjg7516-61-94 06:46:00* Test Item Value Reference Range Interpretation Comments Sodium Level (test code = 2951-2) 139 136-145 [facility] TemplePotassium Kzilc4834-52-88 06:46:00* Test Item Value Reference Range Interpretation Comments Potassium Level (test code = 2823-3) 3.6 3.5-5.1 [facility] TempleChloride Npwvr9437-88-03 06:46:00* Test Item Value Reference Range Interpretation Comments Chloride Level (test code = 2075-0) 103 98-107 [facility] TempleCarbon Dioxide Oqnlb9297-49-01 06:46:00* Test Item Value Reference Range Interpretation Comments Carbon Dioxide Level (test code = 2028-9) 26 22-29 [facility] TempleAnion Yeg1341-95-18 06:46:00* Test Item Value Reference Range Interpretation Comments Anion Gap (test code = 90641-7) 13.6 8-16 [facility] TempleBlood Urea Wadnwcid9559-62-32 06:46:00* Test Item Value Reference Range Interpretation Comments Blood Urea Nitrogen (test code = 3094-0) 19 7-26 [facility] TempleCreatinine2019-01-10 06:46:00* Test Item Value Reference Range Interpretation Comments Creatinine (test code = 2160-0) 0.75 0.57-1.11 [facility] TempleBUN/Creatinine Dftwp0569-08-65 06:46:00* Test Item Value Reference Range Interpretation Comments BUN/Creatinine Ratio (test code = 3097-3) 25 6-25 [facility] TempleEstimat Glomerular Filtration Rate 2018-05-30 06:46:00* Test Item Value Reference Range Interpretation Comments Estimat Glomerular Filtration Rate (test code = 044513778) > 60 >60 Ranges were taken from the National Kidney Disease Education Program and the [facility] literature.Reference ranges:60 or greater: Utvqus67-58 ( for 3 consecutive months): Chronic kidney disease 15 or less: Kidney failureBaylor Scott & [facility] – TempleGlucose Kkyfy3311-54-21 06:46:00* Test Item Value Reference Range Interpretation Comments Glucose Level (test code = IRM5219) 86 74-118 [facility] TempleCalcium Vkqgn4709-66-22 06:46:00* Test Item Value Reference Range Interpretation Comments Calcium Level (test code = 26857-1) 8.6 8.4-10.2 [facility] TempleTotal Llvsfcesk5584-08-82 06:46:00* Test Item Value Reference Range Interpretation Comments Total Bilirubin (test code = 1975-2) 0.6 0.2-1.2 [facility] TempleAspartate Amino Transf (AST/SGOT) 2018-05-30 06:46:00* Test Item Value Reference Range Interpretation Comments Aspartate Amino Transf (AST/SGOT) (test code = Aspartate Amino Transf (AST/SGOT)) 110 5-34 H [facility] TempleAlanine Aminotransferase (ALT/SGPT) 2018-05-30 06:46:00* Test Item Value Reference Range Interpretation Comments Alanine Aminotransferase (ALT/SGPT) (test code = 1742-6) 70 0-55 H [facility] TempleTotal Zgnykhc3257-38-24 06:46:00* Test Item Value Reference Range Interpretation Comments Total Protein (test code = 2885-2) 8.1 6.5-8.1 [facility] TempleAlbumin2019-01-10 06:46:00* Test Item Value Reference Range Interpretation Comments Albumin (test code = 1751-7) 2.9 3.5-5.0 L [facility] TempleGlobulin2019-01-10 06:46:00* Test Item Value Reference Range Interpretation Comments Globulin (test code = 58604-5) 5.2 2.3-3.5 H [facility] TempleAlbumin/Globulin Vbffv6877-28-75 06:46:00 * Test Item Value Reference Range Interpretation Comments Albumin/Globulin Ratio (test code = 1759-0) 0.6 0.8-2.0 L [facility] TempleAlkaline Fbrqbanpgtw6442-77-81 06:46:00* Test Item Value Reference Range Interpretation Comments Alkaline Phosphatase (test code = 6768-6) 160 40-150 H [facility] TempleWhite Blood Qpiou3590-31-86 06:18:00* Test Item Value Reference Range Interpretation Comments White Blood Count (test code = 6690-2) 3.59 4.8-10.8 L [facility] TempleRed Blood Zlucd8298-82-13 06:18:00* Test Item Value Reference Range Interpretation Comments Red Blood Count (test code = 789-8) 3.29 3.6-5.1 L [facility] TempleHemoglobin2019-01-10 06:18:00* Test Item Value Reference Range Interpretation Comments Hemoglobin (test code = 15090-4) 10.1 12.0-16.0 L [facility] TempleHematocrit2019-01-10 06:18:00* Test Item Value Reference Range Interpretation Comments Hematocrit (test code = 4544-3) 30.4 34.2-44.1 L [facility] TempleMean Corpuscular Zzgnii7748-48-80 06:18:00* Test Item Value Reference Range Interpretation Comments Mean Corpuscular Volume (test code = 787-2) 92.4 81-99 [facility] TempleMean Corpuscular Aidzlqzreb1966-44-88 06:18:00* Test Item Value Reference Range Interpretation Comments Mean Corpuscular Hemoglobin (test code = 785-6) 30.7 28-32 [facility] TempleMean Corpuscular Hemoglobin Concent 2018-05-30 06:18:00* Test Item Value Reference Range Interpretation Comments Mean Corpuscular Hemoglobin Concent (test code = 786-4) 33.2 31-35 [facility] TempleRed Cell Distribution Virol8786-84-96 06:18:00* Test Item Value Reference Range Interpretation Comments Red Cell Distribution Width (test code = 13359-1) 14.5 11.7 -14.4 H [facility] TemplePlatelet Wctsf7568-56-34 06:18:00* Test Item Value Reference Range Interpretation Comments Platelet Count (test code = 777-3) 167 140-360 [facility] TempleNeutrophils (%) (Auto)2018-05-30 06:18:00 * Test Item Value Reference Range Interpretation Comments Neutrophils (%) (Auto) (test code = 71868-5) 55.7 38.7-80.0 [facility] TempleLymphocytes (%) (Auto)2018-05-30 06:18:00 * Test Item Value Reference Range Interpretation Comments Lymphocytes (%) (Auto) (test code = 736-9) 25.6 18.0-39.1 [facility] TempleMonocytes (%) (Auto)2018-05-30 06:18:00* Test Item Value Reference Range Interpretation Comments Monocytes (%) (Auto) (test code = 5905-5) 12.3 4.4-11.3 H [facility] TempleEosinophils (%) (Auto)2018-05-30 06:18:00 * Test Item Value Reference Range Interpretation Comments Eosinophils (%) (Auto) (test code = 713-8) 5.3 0.0-6.0 [facility] TempleBasophils (%) (Auto)2018-05-30 06:18:00* Test Item Value Reference Range Interpretation Comments Basophils (%) (Auto) (test code = 706-2) 0.8 0.0-1.0 [facility] TempleIM GRANULOCYTES %2018-05-30 06:18:00* Test Item Value Reference Range Interpretation Comments IM GRANULOCYTES % (test code = IM GRANULOCYTES %) 0.3 0.0- 1.0 [facility] TempleNeutrophils # (Auto)2018-05-30 06:18:00* Test Item Value Reference Range Interpretation Comments Neutrophils # (Auto) (test code = 751-8) 2.0 2.1-6.9 L [facility] TempleLymphocytes # (Auto)2018-05-30 06:18:00* Test Item Value Reference Range Interpretation Comments Lymphocytes # (Auto) (test code = 92272-0) 0.9 1.0-3.2 L [facility] TempleMonocytes # (Auto)2018-05-30 06:18:00* Test Item Value Reference Range Interpretation Comments Monocytes # (Auto) (test code = 742-7) 0.4 0.2-0.8 [facility] TempleEosinophils # (Auto)2018-05-30 06:18:00* Test Item Value Reference Range Interpretation Comments Eosinophils # (Auto) (test code = 711-2) 0.2 0.0-0.4 [facility] TempleBasophils # (Auto)2018-05-30 06:18:00* Test Item Value Reference Range Interpretation Comments Basophils # (Auto) (test code = 704-7) 0.0 0.0-0.1 [facility] TempleAbsolute Immature Granulocyte (auto 2018-05-30 06:18:00* Test Item Value Reference Range Interpretation Comments Absolute Immature Granulocyte (auto (mikey t code = Absolute Immature Granulocyte (auto) 0.01 0-0.1 [facility] TempleCHEST SINGLE (PORTABLE)2018-05-29 11:15:00 [facility] [address] [place] [id number] Patient Name: KAMI SKINNER MR #: [id number] : 1940 Age/Sex: 77/F Req #: [id number] Adm Physician: DYAN LOPEZ MD Ordered by: DYAN LOPEZ MD Report #: [id number] Location: MED/SURG Room[place]Bed: [facility] Procedure: [id number] DX /CHEST SINGLE (PORTABLE) Exam Date: 05/29/18 Exam Ti me: 0950 REPORT STATUS: Signed E XAMINATION: CHEST SINGLE (PORTABLE) INDICATION: CHF COMPARI SON: Chest x-ray 05/26/2018 FINDINGS: AP view TUBES and LINES: None. LUNGS: Lungs are well inflated. Right lung base airspace opacity. Left basilar atelectasis. There is mild prominence of the central pulmonary vasculature, consistent with pulmonary venous congestion. PLEURA: No pleu ral effusion or pneumothorax. HEART AND MEDIASTINUM: Cardiac size is mildl y enlarged. Tortuous ectatic aorta is unchanged. BONES AND SOFT TISSUES: No acute osseous lesion. Soft tissues are unremarkable. UPPER ABDOMEN: No free air under the diaphragm. IMPRESSION: 1. Central pulmonary v enous congestion. 2. New right lung base airspace opacities, likely pneumonia . Left basilar atelectasis. Signed by: Dr. Dexter Ang M.D. on 05/29/2018 11:1 7 AM Dictated By: DEXTER ANG MD 16 COPY TO: MICHAEL LOPEZ MD Differential Total Cells Tnfqusm7664-48-04 08:54:00* Test Item Value Reference Range Interpretation Comments Differential Total Cells Counted (test code = Differen tial Total Cells Counted) 100 [facility] CenterNeut[facility] % (Manual)2018-05-29 08:54:00 * Test Item Value Reference Range Interpretation Comments Neutrophils % (Manual) (test code = 04174-9) 71 40-74 [facility] TempleLymphocytes % (Manual)2018-05-29 08:54:00 * Test Item Value Reference Range Interpretation Comments Lymphocytes % (Manual) (test code = 737-7) 16 19-48 L [facility] TempleMonocytes % (Manual)2018-05-29 08:54:00* Test Item Value Reference Range Interpretation Comments Monocytes % (Manual) (test code = 744-3) 6 3.4-9.0 [facility] TempleEosinophils % (Manual)2018-05-29 08:54:00 * Test Item Value Reference Range Interpretation Comments Eosinophils % (Manual) (test code = 714-6) 6 0-7 [facility] TempleBasophils % (Manual)2018-05-29 08:54:00* Test Item Value Reference Range Interpretation Comments Basophils % (Manual) (test code = 82941-3) 1 0-1.5 [facility] TemplePlatelet Ktujdofs4968-94-89 08:54:00* Test Item Value Reference Range Interpretation Comments Platelet Estimate (test code = 07141-3) ADEQUATE [facility] TemplePlatelet Morphology Tdnwiii6990-03-20 08:54:00* Test Item Value Reference Range Interpretation Comments Platelet Morphology Comment (test code = 34766-2) NORMAL [facility] TempleHypochromasia2019-01-09 08:54:00* Test Item Value Reference Range Interpretation Comments Hypochromasia (test code = 728-6) SLIGHT [facility] TempleRed Cell Morphology Sxvrjvz5888-73-63 08:54:00* Test Item Value Reference Range Interpretation Comments Red Cell Morphology Comment (test code = 6742-1) NORMAL [facility] TempleDifferential Total Cells Counted 2018-05-29 08:54:00* Test Item Value Reference Range Interpretation Comments Differential Total Cells Counted (test code = Differen tial Total Cells Counted) 100 [facility] TempleNeutrophils % (Manual)2018-05-29 08:54:00 * Test Item Value Reference Range Interpretation Comments Neutrophils % (Manual) (test code = 02494-3) 71 40-74 [facility] TempleLymphocytes % (Manual)2018-05-29 08:54:00 * Test Item Value Reference Range Interpretation Comments Lymphocytes % (Manual) (test code = 737-7) 16 19-48 L [facility] TempleMonocytes % (Manual)2018-05-29 08:54:00* Test Item Value Reference Range Interpretation Comments Monocytes % (Manual) (test code = 744-3) 6 3.4-9.0 [facility] TempleEosinophils % (Manual)2018-05-29 08:54:00 * Test Item Value Reference Range Interpretation Comments Eosinophils % (Manual) (test code = 714-6) 6 0-7 [facility] TempleBasophils % (Manual)2018-05-29 08:54:00* Test Item Value Reference Range Interpretation Comments Basophils % (Manual) (test code = 69353-5) 1 0-1.5 [facility] TemplePlatelet Mtlwswjd1990-37-98 08:54:00* Test Item Value Reference Range Interpretation Comments Platelet Estimate (test code = 95671-9) ADEQUATE [facility] TemplePlatelet Morphology Moixfby6497-23-45 08:54:00* Test Item Value Reference Range Interpretation Comments Platelet Morphology Comment (test code = 53986-8) NORMAL [facility] TempleHypochromasia2019-01-09 08:54:00* Test Item Value Reference Range Interpretation Comments Hypochromasia (test code = 728-6) SLIGHT [facility] TempleRed Cell Morphology Wgkwaze7273-93-21 08:54:00* Test Item Value Reference Range Interpretation Comments Red Cell Morphology Comment (test code = 6742-1) NORMAL [facility] TempleB-Type Natriuretic Bpvmakj6759-12-03 07:11:00* Test Item Value Reference Range Interpretation Comments B-Type Natriuretic Peptide (test code = 77868-1) 600.5 0-100 H [facility] TempleCreatine Gxdwlg3279-87-82 06:38:00* Test Item Value Reference Range Interpretation Comments Creatine Kinase (test code = 2157-6) 164 168 [facility] TempleCreatine Dteswn3515-17-81 06:38:00* Test Item Value Reference Range Interpretation Comments Creatine Kinase (test code = 2157-6) 164 -168 [facility] TempleThyroid Stimulating Hormone (TSH) 2018-05-27 10:46:00* Test Item Value Reference Range Interpretation Comments Thyroid Stimulating Hormone (TSH) (test code = 78736-1) 1.989 0.350-4.940 [facility] Ljewelq6958-64-08 06:50:00* Test Item Value Reference Range Interpretation Comments Bedside Glucose (test code = 55383-2) 68 70-120 L Meter ID: [id number] [facility] Hospital Glucose 2018-05-27 06:50:00* Test Item Value Reference Range Interpretation Comments Bedside Glucose (test code = 36958-2) 68 70-120 L Meter ID: [id number] Scott & [facility] Center – TempleMRI SPINE THORACIC KGZ9410-96-66 01:33:00 [place] [address] Patient Name: KAMI SKINNER MR #: [id number] : 1940 Age/Sex: 77/F Req #: [id number] Adm Physician: NIDA BARNES MD Ordered by: YENNY JAY SITE SUPERINTENDENT Report #: [id number] Location: [facility] Room/Bed: [place] [address] Procedure: [id number] M RI/MRI SPINE THORACIC WOW Exam Date: Exam Time: REPORT STATUS: Signed EXAMINATION: MRI of the thoracic spine without and with contrast HISTORY: T7 to T12 fractures. Status post fall on 05/24/2017 COMPARISON: Thoracic spine CT on 2018 TECHNIQUE: Sagittal T1 without contrast, T2, and STIR; axial T2. Coronal T2. Intravenous contrast: 15 mL of MultiHance FINDINGS: Curvature : Moderately increased thoracic kyphosis Vertebrae: Again seen multipl e compression fractures as follows: -Acute compression fracture with enhancing bone marrow edema, in the T7 vertebral body, horizontal fracture line is exte nding to the posterior vertebral body cortex. Minimal edema is also seen in th e adjacent right seventh and eighth posterior ribs. Decreasing prevertebral arben dy height by approximately 50% without significant posterior retropulsion. The re is an approximately 5 mm thickness and about 2.2 cm length left posterolate ral spinal canal, likely subdural T1 hyperintense/T2 hypointense and not signi ficantly enhancing lesion spanning from T7 to T8, which may correspond to a sm all subdural hematoma given recent trauma. There is associated mild canal sten oses and minimal displacement of the spinal cord anteriorly and to the right. Subtle increased T2 signal within the cord at this level is also noted. -Mil d acute to subacute compression fracture of T12, horizontal fracture line elsa cent to the superior endplate remains unremarkable. No posterior peripheral po rtion of canal stenosis. Decreased vertebral body height by approximately 30%. -Mild chronic compression fracture of the C6, C7, T2 vertebral body without significant retropulsion. -Possible bone marrow edema in the spinous processe s of T3, T4, T5 and T6 (only seen on sagittal STIR), no associated expansion o r enhancement. Attention to this finding is also recommended in follow-up stud ies to exclude trauma versus neoplastic process. Discs: No significant degenerative changes, no disc herniations or additional canal stenoses. Spinal canal: Above. Spinal cord: As above. Foramina: No significant stenoses Paraspinal soft tissues: Minimal paraspinal soft tissue swelling at the level of the T7 fracture. Proximal ribs: As above Pa raspinal soft tissues: Partially visualized T2 hyperintense probable cysts in the left kidney IMPRESSION: 1. Again seen moderate acute compressio n fracture of the T7 vertebral body involving the posterior cortex, no signifi cant posterior retropulsion. 2. Mild acute to subacute compression fractur e of the T12 vertebral body. 3. Heterogeneous signal intensity lesion in t he left posterolateral spinal canal at the level of T7-T8 may correspond to a subdural hematoma, neoplastic process cannot be excluded, a follow-up until re solution is advised. 4. Mild associated canal stenosis and cord displaceme nt at T7-T8 with subtle increased signal within the cord. A neurosurgery consu lt is recommended for further evaluation. Signed by: Jordan Sharp on 05/27/2018 1:54 AM Dictated By: DOM RICHARDSON MD 3 Transcribed By: SHANA on 05/27/18153 COPY TO: YENNY JAY NP Prothrombin Jube4444-54-81 18:13:00* Test Item Value Reference Range Interpretation Comments Prothrombin Time (test code = 5902-2) 14.0 11.9-14.5 [facility] TempleProthromb Time International Ratio 2018-05-26 18:13:00* Test Item Value Reference Range Interpretation Comments Prothromb Time International Ratio (test code = 6301-6) 0.99 Oral Anticoagulant Therapy INR Values:1. Low Intensity Therapy 1.5 - 2.02 . Moderate Intensity Therapy 2.0 - 3.03. High Intensity Therapy(1) 2.5 - 3. 54. High Intensity Therapy(2) 3.0 - 4.05. Panic Value INR > 5.0 [facility] TempleActivated Partial Thromboplast Time 2018-05-26 18:13:00* Test Item Value Reference Range Interpretation Comments Activated Partial Thromboplast Time (test code = 58313-9) 41.7 23.8-35.5 H [facility] TempleProthrombin Edya4633-34-00 18:13:00* Test Item Value Reference Range Interpretation Comments Prothrombin Time (test code = 5902-2) 14.0 11.9-14.5 [facility]th[facility] International Ratio 2018-05-26 18:13:00* Test Item Value Reference Range Interpretation Comments Prothromb Time International Ratio (test code = 6301-6) 0.99 Oral Anticoagulant Therapy INR Values:1. Low Intensity Therapy 1.5 - 2.02 . Moderate Intensity Therapy 2.0 - 3.03. High Intensity Therapy(1) 2.5 - 3. 54. High Intensity Therapy(2) 3.0 - 4.05. Panic Value INR > 5.0 [facility] TempleAct[facility] Partial Thromboplast Time 2018-05-26 18:13:00* Test Item Value Reference Range Interpretation Comments Activated Partial Thromboplast Time (test code = 01685-6) 41.7 23.8-35.5 H [facility] TempleCreatine Kinase [id number] 17:35:00* Test Item Value Reference Range Interpretation Comments Creatine Kinase MB (test code = 20477-0) 2.40 0-5.0 [facility] [id number] 17:35:00* Test Item Value Reference Range Interpretation Comments Troponin I (test code = ZJC3669) 0.001 0-0.300 [facility] Kinase [id number] 17:35:00* Test Item Value Reference Range Interpretation Comments Creatine Kinase MB (test code = 10008-5) 2.40 0-5.0 [place] [id number] 17:35:00* Test Item Value Reference Range Interpretation Comments Troponin I (test code = RRR8323) 0.001 0-0.300 [facility] Temple[facility] TH[facility]ACIC SP[facility] [id number] 15:53:00 [place] [address] Patient Name: KAMI SKINNER MR #: [id number] : [birth year] Age/Sex: 77/F Req #: [id number] Adm Physician: NIDA BARNES MD Ordered by: LEELA ATKINSON MD Report #: [id number] Location: [facility] Room/Bed: [place] [address] Procedure: [id number] C T/CT THORACIC SPINE WO Exam Date: 05/26/18 Exam Time : 1508 REPORT STATUS: Signed Exa m: Thoracic Spine CT without Contrast History: Fall with back injury. Co mparison studies: Concurrent cervical spine CT Technique: Axial were obta ined without IV contrast through the thoracic region. Coronal and sagittal zan ges reconstructed from the axial data. Dose modulation, iterative reconstructi on, and/or weight based adjustment of the mA/kV was utilized to reduce the ra diation dose to as low as reasonably achievable. Intravenous contrast: N one Findings: Alignment: Accentuation of the thoracic kyphosis at T7. No scoliosis. Soft tissues: No abnormalities.. Paraspinal muscles: Unremarka ble Spinal canal/cord: The cord cannot be evaluated. In the left extradural /epidural space from mid T7 through mid T8, there is a soft tissue lesion (axi al soft tissue, image numbers 54 through 60 and coronal soft tissue, image #35 ). This could represent extruded/migrated disc, a synovial cyst or benign tumo r such as a schwannoma. Though the adjacent left neural foramen is not widened and not involved. Vertebrae: Multilevel compression deformities, as fo llows: Moderate compression deformities at C6 and C7, mild superior endplate d eformity at T2, moderate compression deformity of T7 (approximately 40%), mild superior plate deformity of T12 and L1. Large superior endplate Schmorl's nod e at T11 which may have a component of mild compression deformity, as well. Degenerative changes: Multilevel degenerative disc height loss throughout t he thoracic spine with vacuum disc phenomena at T9-10 through T11-12. Diffuse osteopenia. IMPRESSION: 1. Multilevel age indeterminate compression d eformities, moderate at C6 and C7, mild superior endplate at T2, moderate at T 7, and mild superior endplate at T12 and L1. Questionable mild superior endpla te deformity of T11 in the setting of a prominent Schmorl's node at that level . There is no retropulsion of fracture fragments into the spinal canal. Compar clara with prior studies would be helpful to determine chronicity. 2. Lef t posterior and lateral soft tissue mass in the extradural/epidural space from mid T7 through mid T8 which could represent an extruded or migrated disc, syn ovial cyst or benign tumor such as schwannoma. Further evaluation with a contr ast-enhanced thoracic spine MRI is recommended. 3. Cannot adequately evalu ate for ligament, spinal cord and or vascular abnormalities. 4. Diffuse osteopenia. This is a preliminary report was provided by the neuroradiology fellow, Dr. Eldon Garcia. Attending over read to follow. The images and preliminary report were reviewed, edited/ changed and signed by Dr. Wolfgang Morales, neuroradiology faculty, on 05/26/[address] Wolfgang Morales discussed findings and recommendations with Dr. Yancy Bingham on 05/26/2018 at 1741 hours. . Signed by: Dr. Wolfgang Morales M.D. on 05/26/2018 5:43 PM Dictated By: WOLFGANG VILLATORO MD 1743 Transcribed By: SHANA on 05/26/18 174 3 COPY TO: LEELA ATKINSON MD PELVIS AP 1-2 [id number] 15:39:00 [place] [address] Patient Name: KAMI SKINNER MR #: [id number] : 1940 Age/Sex: 77/F Req #: [id number] Adm Physician: NIDA BARNES MD Ordered by: LEELA ATKINSON MD Report #: [id number] Location: [facility] Room/Bed: [place] [address] Procedure: [id number] D X/PELVIS AP 1-2 VIEWS Exam Date: 05/26/18 Exam Time: 1508 REPORT STATUS: Signed [place] is CPT code: 71382 Indication: Fall Technique: Portable AP image of the pelvis obtained. Comparison: No relevant priors. Correlation is made with report of CT of the abdomen and pelvis performed 05/09/2016 Finding s: The bones are diffusely demineralized. Right hip prosthesis is in approp riate position without associated fracture or lucency to suggest loosening in the visualized portions. There are severe degenerative changes of the left hip with remodeling of the femoral head. No diastases of the pubic symphysis or s acral iliac joints. The pubic rami are intact. There are degenerative changes of the lower lumbar spine. IMPRESSION: 1. Right hip prosthesis in a ppropriate position without associated fracture in the visualized portions. No fractures in the visualized pelvis. 2. Severe degenerative changes of the left hip. Signed by: Dr. Daysi Ryan MD on 05/26/2018 3:42 PM Dictated By: DAYSI RYAN MD 154 Transcribed By: SHANA on 05/26/18 1542 COPY TO: LEELA TEMPLETON MD CHEST SINGLE (PORTABLE)2018-05-26 15:37:00 [place] [address] Patient Name: KAMI SKINNER MR #: [id number] : 1940 Age/Sex: 77/F Req #: [id number] Adm Physician: NIDA BARNES MD Ordered by: LEELA ATKINSON MD Report #: [id number] Location: [facility] Room/Bed: [place] [address] Procedure: D X/CHEST SINGLE (PORTABLE) Exam Date: 05/26/18 Exam T heidi: 1508 REPORT STATUS: Signed EXAMINATION: CHEST SINGLE (PORTABLE) COMPARISON: Report of chest x-ray performed 09/03/2016 INDICATION: fall DISCUSSION: Frontal v iew of the chest obtained at 1512 hours. HEART AND MEDIASTINUM: Mild cardi omegaly and aortic ectasia LINES: None. LUNGS: Diffuse hyperinflat ion consistent with COPD. Pulmonary vascular markings are mildly prominent. No pneumonia or pulmonary edema. PLEURA: No pleural effusion or pneumothorax . BONES AND SOFT TISSUES: The bones are diffusely demineralized. The soft tissues are normal. IMPRESSION: Cardiomegaly and pulmonary hyperinf lation. No acute cardiopulmonary process. Signed by: Dr. Daysi Ryan MD on 05/26/2018 3:39 PM Dictated By: DAYSI RYAN MD 1539 Transcribed By: SHANA on 1539 COPY TO: LEELA ATKINSON MD CT BRAIN [id number] 15:31:00 [place] [address] Patient Name: KAMI SKINNER MR #: [id number] : 1940 Age/Sex: 77/F Req #: [id number] Adm Physician: NIDA BARNES MD Ordered by: LEELA ATKINSON MD Report #: [id number] Location: [facility] Room/Bed: [place] [address] Procedure: [id number] C T/CT BRAIN WO Exam Date: 05/26/18 Exam Time: 1508 REPORT STATUS: Signed Exam: Noncon trast head CT History:Fall Comparison studies: Imaging performed in 201 3 is inaccessible at this time. However, the report was available for review. Technique: Axial images were obtained from the skull base to the vertex. Coronal and sagittal images reconstructed from the axial data. Dose modulati on, iterative reconstruction, and/or weight based adjustment of the mA/kV was utilized to reduce the radiation dose to as low as reasonably achievable. Intravenous contrast: None Findings: Scalp/skull: No abnormaliti es. Extra-axial spaces: No masses. No fluid collections. Brain sul ci: Mildly prominent. Ventricles: Mild compensatory dilatation. No hydrocephal us. Parenchyma: Mild hypodensities in the supratentorial white matter ar e small vessel ischemic changes. No masses, hemorrhage, acute or chronic corti tang vascular insults. Sellar/suprasellar region: No abnormalities. Cranio cervical junction: Patent foramen magnum. No Chiari one malformation. Inci dental findings: Atherosclerotic calcifications in the carotid siphons . Impression: No acute abnormalities. Chronic findings: 1. Mild gener alized volume loss. 2. Mild supratentorial white matter small vessel ischemic changes. This is a preliminary report was provided by the neuroradiology Dr. Eldon small. Attending over read to follow. The images and preliminary report were reviewed and signed by Dr. Wolfgang Morales, neuro radiology faculty, on 05/26/2018 at 1720. Signed by: Diana Amezquita on 05/26/2018 5:28 PM Dictated By: WOLFGANG VILLATORO MD Electron ically Signed By: WOLFGANG VILLATORO MD on 05/26/181727 Transcribed By: SHANA on 05/26/18 1728 COPY TO: LEELA ATKINSON MD CT CERVICAL SPINE [id number] 15:24:00 [place] [address] Patient Name: KAMI SKINNER MR #: [id number] : 1940 Age/Sex: 77/F Req #: [id number] Adm Physician: NIDA BARNES MD Ordered by: LEELA ATKINSON MD Report #: [id number] Location: [facility] Room/Bed: [place] [address] Procedure: [id number] C T/CT CERVICAL SPINE WO Exam Date: 05/26/18 Exam Time : 1508 REPORT STATUS: Signed Exa m: Cervical spine CT without contrast History: Fall with neck injury Compari son studies: None available at time of dictation Technique: Axial images were obtained through the cervical region. Coronal and sagittal images recons tructed from the axial data. Dose modulation, iterative reconstruction, and/or weight based adjustment of the mA/kV was utilized to reduce the radiation do se to as low as reasonably achievable. Intravenous contrast: None F indings: Fractures: Moderate compression deformities (approximately 50% hei ght loss) of the C6 and C7 vertebral bodies with mild bulging of the posterior maldonado without significant canal stenosis. There is no significant adjacent pr evertebral soft tissue swelling or hematoma. Soft tissues: Enlarged, heterog eneous left thyroid lobe. Atlantoaxial articulation: Intact. Alignment: N ormal lordosis. Mild dextroconvex curvature of the cervical spine which may be positional. Cervicomedullary junction: No abnormalities. The foramen magnum i s patent. Vertebrae: No infection or neoplasm. Degenerative changes : Mild multilevel degenerative disc height loss, greatest at C2-3, C4-5, and C6-7. IMPRESSION: 1. Age-indeterminate moderate compression deformit ies of C6 and C7. The cervical spine CT dated 09/03/2016 does not report compre ssion fractures, however the images are not available for direct comparison. C linical correlation to site of pain and retrieval of the prior images are leighton mmended. No canal or foraminal stenosis is seen at these or other levels. 2. Cannot adequately evaluate for ligament, spinal cord and or vascular abnor malities. 3. Enlarged, heterogeneous left thyroid lobe. Consider nonemergen t dedicated evaluation with ultrasound. This is a preliminary report was provided by the neuroradiology fellow, Dr. Eldon Garcia. Attending over read t o follow. The images and preliminary report were reviewed and signed by Dr. Wolfgang Morales, neuroradiology faculty, on 05/26/2018 at 1730 hours. Signed by: Dr. Wolfgang Morales M.D. on 05/26/2018 5:30 PM Dictated By: ADEEL VILLATORO MD 29 Transcribed By: SHANA on 05/26/181729 COPY TO: LEELA YIN MD Urine [id number] 13:46:00* Test Item Value Reference Range Interpretation Comments Urine Color (test code = 5778-6) YELLOW YELLOW [facility] [id number] 13:46:00* Test Item Value Reference Range Interpretation Comments Urine Clarity (test code = 67149-2) HAZY CLEAR [facility] Specific [id number] 13:46:00 * Test Item Value Reference Range Interpretation Comments Urine Specific Cedar (test code = 5811-5) 1.030 1.010-1.02 5 H [facility] [id number] 13:46:00* Test Item Value Reference Range Interpretation Comments Urine pH (test code = 04796-8) 5 5-7 [facility] Leukocyte [id number] 13:46:00* Test Item Value Reference Range Interpretation Comments Urine Leukocyte Esterase (test code = 5799-2) NEGATIVE NEGATIVE [facility] [id number] 13:46:00* Test Item Value Reference Range Interpretation Comments Urine Nitrite (test code = 16343-1) NEGATIVE NEGATIVE [facility] [id number] 13:46:00* Test Item Value Reference Range Interpretation Comments Urine Protein (test code = 5804-0) NEGATIVE NEGATIVE [facility] Glucose (UA)2018-05-26 13:46:00* Test Item Value Reference Range Interpretation Comments Urine Glucose (UA) (test code = 2349-9) NEGATIVE NEGATIVE [facility] [id number] 13:46:00* Test Item Value Reference Range Interpretation Comments Urine Ketones (test code = 61968-6) NEGATIVE NEGATIVE [facility] [id number] 13:46:00* Test Item Value Reference Range Interpretation Comments Urine Urobilinogen (test code = 26504-4) 0.2 0.2-1 [facility] Tjdunxsat3796-93-00 13:46:00* Test Item Value Reference Range Interpretation Comments Urine Bilirubin (test code = 1978-6) NEGATIVE NEGATIVE [facility] [id number] 13:46:00* Test Item Value Reference Range Interpretation Comments Urine Blood (test code = 63806-0) NEGATIVE NEGATIVE [facility] [id number] 13:46:00* Test Item Value Reference Range Interpretation Comments Urine WBC (test code = 5821-4) 6-10 0-5 H [facility] [id number] 13:46:00* Test Item Value Reference Range Interpretation Comments Urine RBC (test code = 70789-7) 0-5 0-5 [facility] Ozpevrrj2121-65-52 13:46:00* Test Item Value Reference Range Interpretation Comments Urine Bacteria (test code = 20413-8) FEW NONE [facility] Epithelial Vxdyz0935-15-96 13:46:00 * Test Item Value Reference Range Interpretation Comments Urine Epithelial Cells (test code = 02158-2) FEW NONE [facility] TempleKNEE LEFT THREE [id number] 13:07:00 [facility] [address] [place] [address] Patient Name: KAMI SKINNER MR #: [id number] : [birth year] Age/Sex: 77/F Req #: [id number] Adm Physician: Ordered by: YENNY JAY NP Report #: [id number] Location: ER Room/Bed: Procedure: [id number] DX/ KNEE LEFT THREE VIEWS Exam Date: 05/26/18 Exam Time: 1218 REPORT STATUS: Signed Left complete knee. CPT CODE: 83383. INDICATION: Fall COMPARISON: Non e FINDINGS: The bones are diffusely demineralized. No acute fracture or dislocation. Serpiginous sclerotic focus in the distal diaphysis of the fe mur measures 6.8 cm in length. Round sclerotic focus in the proximal metadiaph ysis of the tibia measures 1.7 cm. Mild medial compartment narrowing of the knee. No significant osteophytosis. Small joint effusion. IMPRESSI ON: No acute osseous injury. Small joint effusion. Sclerotic intramedu llary foci in the femur and proximal tibia may represent enchondromas or bone infarcts. Signed by: Dr. Daysi Ryan MD on 05/26/2018 1:11 PM D ictated By: DAYSI RYAN MD 1311 Transcribed By: SHANA on 05/26/18 1311 COPY TO: YENNY THIBODEAUX ACE, NP SP LUMBAR, COMPLETE MIN [id number] 13:01:00 [place] [address] Patient Name: KAMI SKINNER MR #: [id number] : 1940 Age/Sex: 77/F Req #: [id number] Adm Physician: Ordered by: YENNY JAY NP Report #: [id number] Location: ER Room/Bed: Procedure: [id number] DX/ SP LUMBAR, COMPLETE MIN 4VW Exam Date: 05/26/18 Exam Time: 1218 REPORT STATUS: Signed Lumbar spine two views CPT code: 66106 Indication: Fall 2 days ago, back pain Technique: A.P. and lateral views of the lumbar spine obtained Comparison: Thoracic spine x-rays obtained at the same time. A CT of the a bdomen/pelvis performed in 2015 is not available for review. Findings: The bones are diffusely demineralized. There are five non rib bearing vert ebral bodies. There is mild dextroscoliosis with the apex at L1/2. There is height loss of the T12 vertebral body of approximately 48%. There is minimal h eight loss of the L1 vertebral body. No subluxation. Disc space narrowing and endplate osteophytic lipping of L5-S1. There is facet arthropathy of the lower levels with right facet arthropathy at L4-5. Small anterior inferior ost eophyte at L2. No abnormalities of the sacroiliac joints. The sacrum is no rmal. A right hip prosthesis is partially imaged. There are severe degenerati ve changes of the left hip. Visualized bones of the pelvis are intact. The bowel gas pattern is unremarkable. IMPRESSION: 1. Age indetermin ate fracture of T12 of 48%. Minimal superior endplate height loss of L1. No li sthesis. 2. Degenerative changes as described above. Signed by: Dr. Rianna MD on 05/26/2018 1:07 PM Dictated By: DAYSI RYAN MD 1436 Transcribed B y: SHANA on 05/26/18 8375 COPY TO: YENNY JAY SITE SUPERINTENDENT THORACIC SPINE [id number] 12:57:00 [facility] [place] [address] Patient Name: KAMI SKINNER MR #: [id number] : 1940 Age/Sex: 77/F Req #: [id number] Adm Physician: Ordered by: YENNY JAY NP Report #: [id number] Location: ER Room/Bed: Procedure: [id number] DX/ THORACIC SPINE 2VW Exam Date: 05/26/18 Exam Time: 05 07 REPORT STATUS: Signed Thoraci c spine complete CPT code: 25526 Indication: Fall 2 days ago, back jessica n Technique: A.P. and lateral views of thoracic spine obtained without co mparison. Findings: The bones are diffusely demineralized. Alignme nt maintained on AP view. There is height loss of the T7 vertebral body of cornelia roximately 30%. No subluxation on lateral image. There are mild degenerat orestes changes of the spine. Cervicothoracic junction is not well demonstrated du e to overlapping soft tissue and osseous structures. IMPRESSION: Age -indeterminate T7 compression deformity of approximately 30%. No subluxation. Signed by: Dr. Daysi Ryan MD on 05/26/2018 1:01 PM Dictated By : DAYSI RYAN MD 1301 COPY TO: YENNY JAY NP URINALYSIS W/ [id number] 02:46:00* Test Item Value Reference Range Interpretation Comments COLOR (BEAKER) (test code = 470) Yellow CLARITY (BEAKER) (test code = 469) Clear SPECIFIC GRAVITY UA (BEAKER) (test code = 468) 1.020 1.001-1 .035 PH UA (BEAKER) (test code = 467) 6.0 5.0-8.0 PROTEIN UA (BEAKER) (test code = 464) 20 mg/dL Negative A GLUCOSE UA (BEAKER) (test code = 365) Negative Negative KETONES UA (BEAKER) (test code = 371) Negative Negative BILIRUBIN UA (BEAKER) (test code = 462) Negative Negative BLOOD UA (BEAKER) (test code = 461) Negative Negative NITRITE UA (BEAKER) (test code = 465) Negative Negative LEUKOCYTE ESTERASE UA (BEAKER) (test code = 466) Negative Negat orestes UROBILINOGEN UA (BEAKER) (test code = 463) 0.2 mg/dL 0.2-1.0 RBC UA (BEAKER) (test code = 519) 0 /HPF WBC UA (BEAKER) (test code = 520) 4 /HPF MUCUS (BEAKER) (test code = 1574) Occasional SQUAMOUS EPITHELIAL (BEAKER) (test code = 516) 1 /HPF SOURCE(BEAKER) (test code = 2795) Urine, Voided [id number] 19:48:00* Test Item Value Reference Range Interpretation Comments PHOSPHORUS (BEAKER) (test code = 604) 3.1 mg/dL 2.3-4.7 [id number] 19:48:00* Test Item Value Reference Range Interpretation Comments MAGNESIUM (BEAKER) (test code = 627) 1.9 mg/dL 1.6-2.6 BASIC METABOLIC [id number] 19:48:00* Test Item Value Reference Range Interpretation Comments SODIUM (BEAKER) (test code = 381) 138 meq/L 136-145 POTASSIUM (BEAKER) (test code = 379) 3.9 meq/L 3.5-5.1 CHLORIDE (BEAKER) (test code = 382) 107 meq/L 98-107 CO2 (BEAKER) (test code = 355) 26 meq/L 22-29 BLOOD UREA NITROGEN (BEAKER) (test code = 354) 11 mg/dL 7-21 CREATININE (BEAKER) (test code = 358) 0.55 mg/dL 0.57-1.25 L GLUCOSE RANDOM (BEAKER) (test code = 652) 95 mg/dL 70-105 CALCIUM (BEAKER) (test code = 697) 8.4 mg/dL 8.4-10.2 EGFR (BEAKER) (test code = 1092) 108 mL/min/1.73 sq m ESTIMATED GFR IS NOT ACCURATE CREATININE CLEARANCE IN PREDICTING GLOMERULAR FILTRATION RATE. ESTIMATED GFR IS NOT APPLICABLE FOR DIALYSIS PATIENTS. CBC W/PLT COUNT & AUTO [id number] 19:43:00* Test Item Value Reference Range Interpretation Comments WHITE BLOOD CELL COUNT (BEAKER) (test code = 775) 3.5 K/ L 4.0- 10.0 L RED BLOOD CELL COUNT (BEAKER) (test code = 761) 2.96 M/ L 4.00-5 .00 L HEMOGLOBIN (BEAKER) (test code = 410) 9.7 GM/DL 12.0-15.0 L HEMATOCRIT (BEAKER) (test code = 411) 29.5 % 36.0-45.0 L MEAN CORPUSCULAR VOLUME (BEAKER) (test code = 753) 99.7 fL 82. 0-99.0 H MEAN CORPUSCULAR HEMOGLOBIN (BEAKER) (test code = 751) 32.7 pg 27.0-33.0 MEAN CORPUSCULAR HEMOGLOBIN CONC (BEAKER) (test code = 752) 32.8 GM/DL 32.0-36.0 RED CELL DISTRIBUTION WIDTH (BEAKER) (test code = 412) 13.8 % 10.3-14.2 PLATELET COUNT (BEAKER) (test code = 756) 175 K/CU MM 150-430 MEAN PLATELET VOLUME (BEAKER) (test code = 754) 7.6 fL 6.5-10 .5 NUCLEATED RED BLOOD CELLS (BEAKER) (test code = 413) 0 /100 WBC 0 -0 NEUTROPHILS RELATIVE PERCENT (BEAKER) (test code = 429) 51 % LYMPHOCYTES RELATIVE PERCENT (BEAKER) (test code = 430) 29 % MONOCYTES RELATIVE PERCENT (BEAKER) (test code = 431) 14 % EOSINOPHILS RELATIVE PERCENT (BEAKER) (test code = 432) 6 % BASOPHILS RELATIVE PERCENT (BEAKER) (test code = 437) 1 % NEUTROPHILS ABSOLUTE COUNT (BEAKER) (test code = 670) 1.78 K/ L 1.80-8.00 L LYMPHOCYTES ABSOLUTE COUNT (BEAKER) (test code = 414) 1.03 K/ L 1.48-4.50 L MONOCYTES ABSOLUTE COUNT (BEAKER) (test code = 415) 0.48 K/ L 0. 00-1.30 EOSINOPHILS ABSOLUTE COUNT (BEAKER) (test code = 416) 0.20 K/ L 0.00-0.50 BASOPHILS ABSOLUTE COUNT (BEAKER) (test code = 417) 0.04 K/ L 0. 00-0.20 0.00URINE [id number] 12:34:00* Test Item Value Reference Range Interpretation Comments CULTURE (BEAKER) (test code = 1095) No growth BASIC METABOLIC [id number] 07:07:00* Test Item Value Reference Range Interpretation Comments SODIUM (BEAKER) (test code = 381) 133 meq/L 136-145 L POTASSIUM (BEAKER) (test code = 379) 4.2 meq/L 3.5-5.1 Specimen slightly hemolyzed CHLORIDE (BEAKER) (test code = 382) 106 meq/L 98-107 CO2 (BEAKER) (test code = 355) 19 meq/L 22-29 L BLOOD UREA NITROGEN (BEAKER) (test code = 354) 12 mg/dL 7-21 CREATININE (BEAKER) (test code = 358) 0.63 mg/dL 0.57-1.25 Specimen slightly hemolyzed GLUCOSE RANDOM (BEAKER) (test code = 652) 78 mg/dL 70-105 CALCIUM (BEAKER) (test code = 697) 8.3 mg/dL 8.4-10.2 L EGFR (BEAKER) (test code = 1092) mL/min/1.73 sq m INSUFFICIENT CLINICAL DATA TO CALCULATE ESTIMATED GFR. POCT-GLUCOSE [id number] 13:13:00* Test Item Value Reference Range Interpretation Comments POC-GLUCOSE METER (BEAKER) (test code = 1538) 90 mg/dL 70-110 TESTED AT [facility] [address] [facility] [address] CBC W/PLT COUNT & AUTO [id number] 05:53:00* Test Item Value Reference Range Interpretation Comments WHITE BLOOD CELL COUNT (BEAKER) (test code = 775) 3.2 K/ L 4.0- 10.0 L RED BLOOD CELL COUNT (BEAKER) (test code = 761) 2.62 M/ L 4.00-5 .00 L HEMOGLOBIN (BEAKER) (test code = 410) 8.7 GM/DL 12.0-15.0 L HEMATOCRIT (BEAKER) (test code = 411) 25.1 % 36.0-45.0 L MEAN CORPUSCULAR VOLUME (BEAKER) (test code = 753) 95.9 fL 82. 0-99.0 MEAN CORPUSCULAR HEMOGLOBIN (BEAKER) (test code = 751) 33.2 pg 27.0-33.0 H MEAN CORPUSCULAR HEMOGLOBIN CONC (BEAKER) (test code = 752) 34.6 GM/DL 32.0-36.0 RED CELL DISTRIBUTION WIDTH (BEAKER) (test code = 412) 14.8 % 10.3-14.2 H PLATELET COUNT (BEAKER) (test code = 756) 136 K/CU MM 150-430 L MEAN PLATELET VOLUME (BEAKER) (test code = 754) 8.4 fL 6.5-10 .5 NUCLEATED RED BLOOD CELLS (BEAKER) (test code = 413) 3 /100 WBC 0 -0 H NEUTROPHILS RELATIVE PERCENT (BEAKER) (test code = 429) 54 % LYMPHOCYTES RELATIVE PERCENT (BEAKER) (test code = 430) 28 % MONOCYTES RELATIVE PERCENT (BEAKER) (test code = 431) 16 % EOSINOPHILS RELATIVE PERCENT (BEAKER) (test code = 432) 1 % BASOPHILS RELATIVE PERCENT (BEAKER) (test code = 437) 1 % NEUTROPHILS ABSOLUTE COUNT (BEAKER) (test code = 670) 1.74 K/ L 1.80-8.00 L LYMPHOCYTES ABSOLUTE COUNT (BEAKER) (test code = 414) 0.89 K/ L 1.48-4.50 L MONOCYTES ABSOLUTE COUNT (BEAKER) (test code = 415) 0.52 K/ L 0. 00-1.30 EOSINOPHILS ABSOLUTE COUNT (BEAKER) (test code = 416) 0.03 K/ L 0.00-0.50 BASOPHILS ABSOLUTE COUNT (BEAKER) (test code = 417) 0.02 K/ L 0. 00-0.20 0.00BASI METABOLIC [id number] 05:25:00* Test Item Value Reference Range Interpretation Comments SODIUM (BEAKER) (test code = 381) 137 meq/L 136-145 POTASSIUM (BEAKER) (test code = 379) 3.2 meq/L 3.5-5.1 L Specimen slightly hemolyzed CHLORIDE (BEAKER) (test code = 382) 106 meq/L 98-107 CO2 (BEAKER) (test code = 355) 24 meq/L 22-29 BLOOD UREA NITROGEN (BEAKER) (test code = 354) 13 mg/dL 7-21 CREATININE (BEAKER) (test code = 358) 0.60 mg/dL 0.57-1.25 Specimen slightly hemolyzed GLUCOSE RANDOM (BEAKER) (test code = 652) 88 mg/dL 70-105 CALCIUM (BEAKER) (test code = 697) 7.7 mg/dL 8.4-10.2 L EGFR (BEAKER) (test code = 1092) mL/min/1.73 sq m INSUFFICIENT CLINICAL DATA TO CALCULATE ESTIMATED GFR. [id number] 05:22:00* Test Item Value Reference Range Interpretation Comments MAGNESIUM (BEAKER) (test code = 627) 1.6 mg/dL 1.6-2.6 Specimen slightly hemolyzed [id number] 05:22:00* Test Item Value Reference Range Interpretation Comments PHOSPHORUS (BEAKER) (test code = 604) 3.1 mg/dL 2.3-4.7 Specimen slightly hemolyzed URINALYSIS W/ [id number] 19:25:00* Test Item Value Reference Range Interpretation Comments COLOR (BEAKER) (test code = 470) Yellow CLARITY (BEAKER) (test code = 469) Clear SPECIFIC GRAVITY UA (BEAKER) (test code = 468) 1.012 1.001-1 .035 PH UA (BEAKER) (test code = 467) 6.5 5.0-8.0 PROTEIN UA (BEAKER) (test code = 464) 10 mg/dL Negative A GLUCOSE UA (BEAKER) (test code = 365) Negative Negative KETONES UA (BEAKER) (test code = 371) Negative Negative BILIRUBIN UA (BEAKER) (test code = 462) Negative Negative BLOOD UA (BEAKER) (test code = 461) Trace Negative A NITRITE UA (BEAKER) (test code = 465) Negative Negative LEUKOCYTE ESTERASE UA (BEAKER) (test code = 466) Negative Negat orestes UROBILINOGEN UA (BEAKER) (test code = 463) 0.2 mg/dL 0.2-1.0 RBC UA (BEAKER) (test code = 519) 4 /HPF WBC UA (BEAKER) (test code = 520) 3 /HPF MUCUS (BEAKER) (test code = 1574) Rare SOURCE(BEAKER) (test code = 2795) Urine, Agrawal
[2019-10-30] MEDS ORDERED: SODIUM CHLORIDE 0.9% 1000ML 1,000 ML IV STA (12:01)
[2019-10-30] MEDS ORDERED: ONDANSETRON HCL INJ 2MG/ML 2ML 2 MG/ML VIAL IV STA (12:01)
[2019-10-30] MEDS ORDERED: PANTOPRAZOLE 40 MG 10ML VIAL IV ONE (12:30)
--- NOTE | 2019-10-30 12:53 | Diagnostic Imaging Report ---
EXAMINATION: CHEST SINGLE (PORTABLE) INDICATION: Cough COMPARISON: Chest radiograph of 06/18/2018 FINDINGS: LINES/TUBES:None LUNGS:The lungs are well-inflated. No focal consolidation or pulmonary edema. PLEURA:No pleural effusion or pneumothorax. MEDIASTINUM:The cardiomediastinal silhouette appears normal in size and shape. BONES/SOFT TISSUES:No acute osseous injury. ABDOMEN:No free air under the diaphragm. IMPRESSION: No focal pneumonia or pulmonary edema. Signed by: Samantha Carter MD on 10/30/2019 12:49 PM
[2019-10-30 13:30] LABS: BASOPHILS % 0.9 % (0.0-1.0); EOSINOPHILS % 0.9 % (0.0-6.0); HEMATOCRIT 31.6 % (34.2-44.1); HEMOGLOBIN 10.4 g/dL (12.0-16.0); LYMPHOCYTES # (AUTO) 0.9 (1.0-3.2); LYMPHOCYTES % 19.1 % (18.0-39.1); MEAN CORPUSCULAR HEMOGLOBIN 29.5 pg (28-32); MEAN CORPUSCULAR HGB CONC 32.9 g/dL (31-35); MEAN CORPUSCULAR VOLUME 89.8 fL (81-99); MONOCYTES # (AUTO) 0.6 (0.2-0.8); MONOCYTES % 12.8 % (4.4-11.3); NEUTROPHILS % 65.2 % (38.7-80.0); RED BLOOD COUNT 3.52 x10e6/uL (3.6-5.1)
[2019-10-30 13:40] LABS: PLATELET COUNT 10 x10e3/uL (140-360)
[2019-10-30 13:50] LABS: ALBUMIN 3.4 g/dL (3.5-5.0); ALBUMIN/GLOBULIN RATIO 0.6 (0.8-2.0); ANION GAP 16.4 mmol/L (8-16); CALCIUM 8.5 mg/dL (8.4-10.2); CREATININE, SERUM 1.41 mg/dL (0.57-1.11); MAGNESIUM 2.3 MG/DL (1.3-2.1); POTASSIUM 4.4 mmol/L (3.5-5.1)
[2019-10-30 14:01] LABS: CREATINE KINASE MB 2.4 ng/mL (0-5.0); INR 1.03; PARTIAL THROMBOPLASTIN TIME 29.7 seconds (23.8-35.5); PROTHROMBIN TIME 14.1 seconds (11.9-14.5)
--- NOTE | 2019-10-30 14:40 | Emergency Department Note ---
History of Present Illnes History of Present Illness Chief Complaint: Respiratory History of Present Illness This is a 79 year old female Patient in from home via EMS with reports of diarrhea that started last night and shortness of breath that started today. Per EMS report, the patient's family stated the patient had a cough however patient denies cough and no coughing was noted during triage assessment. Patient's respirations are even and lung sounds are clear. No acute distress noted. Oxygen saturation on room air 100%. 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 Any updates have been documented here. Past Medical History Recent Fever: No Clinical Suspicion of Infectio: No New/Unexplained Change in Ment: No Past Medical History: A-Fib, Seizure Disorder, Anemia, Anxiety Other Medical History: Dermatomyositis Past Surgical History: T&A Other Surgery: RIGHT HIP REPLACED TONSILLECTOMY Social History Smoking Cessation: Never Smoker Counseling Performed: No Alcohol Use: None Any Illegal Drug Use: No TB Exposure/Symptoms: No Physically hurt or threatened: No Other Last Tetanus: UNKNOWN Any Pre-Existing Lines (PICC,: No Is patient up to date on immun: Yes Last Flu: unknown Last Pneumovax: unknown Review of Systems ROS Narrative POOR HISTORIAN Review of Systems Constitutional: Reports as per HPI EENTM: Reports no symptoms Cardiovascular: Reports no symptoms Respiratory: Reports cough (NO COUGH WHILE I WAS IN ROOM) Gastrointestinal: Reports diarrhea Genitourinary: Reports no symptoms Musculoskeletal: Reports no symptoms Integumentary: Reports no symptoms Neurological: Reports no symptoms Psychological: Reports no symptoms Endocrine: Reports no symptoms Hematological/Lymphatic: Reports no symptoms Physical Exam Related Data Allergies: Coded Allergies: Heparin Analogues (Verified Allergy, Severe, 06/17/18) "makes me feel like i am on fire!"--this is when i was treated for dvt in the past.lovenox i can tolerate. Sulfa (Sulfonamide Antibiotics) (Verified Allergy, Intermediate, 06/17/18) itchiness,sob morphine (Verified Allergy, Intermediate, 06/17/18) pt gets short of breath and confused. diazepam (Verified Allergy, Unknown, 06/17/18) levetiracetam (Verified Allergy, Unknown, 06/17/18) methotrexate (Verified Allergy, Unknown, 06/17/18) Triage Vital Signs Vital Signs Date Time Temp Pulse Resp B/P (MAP) Pulse Ox O2 Delivery O2 Flow Rate FiO2 10/30/19 11:57 97.4 85 15 138/99 100 Vital signs reviewed: Yes Physical Exam CONSTITUTIONAL Constitutional: Reports well-developed, Reports well-nourished HENT HENT: Reports normocephalic, Reports atraumatic, Reports oropharynx clear/moist, Reports nose normal HENT L/R: Reports left ext ear normal, Reports right ext ear normal EYES Eyes: Reports PERRL, Reports conjunctivae normal NECK Neck: Reports ROM normal PULMONARY Pulmonary: Reports effort normal, Reports breath sounds normal CARDIOVASCULAR Cardiovascular: Reports regular rhythm, Reports heart sounds normal, Reports capillary refill normal, Reports normal rate GASTROINTESTINAL Abdominal: Reports soft, Reports nontender, Reports bowel sounds normal GENITOURINARY Genitourinary: Reports exam deferred SKIN Skin: Reports warm, Reports dry MUSCULOSKELETAL Musculoskeletal: Reports ROM normal NEUROLOGICAL Neurological: Reports alert, Reports oriented x 3, Reports no gross motor or sensory deficits PSYCHOLOGICAL Psychological: Reports mood/affect normal, Reports judgement normal Results Laboratory Result Diagram: 10/30/19 1312 10/30/19 1312 Laboratory Laboratory Tests Test 10/30/19 13:12 10/30/19 12:23 White Blood Count 4.60 x10e3/uL (4.8-10.8) Red Blood Count 3.52 x10e6/uL (3.6-5.1) Hemoglobin 10.4 g/dL (12.0-16.0) Hematocrit 31.6 % (34.2-44.1) Mean Corpuscular Volume 89.8 fL (81-99) Mean Corpuscular Hemoglobin 29.5 pg (28-32) Mean Corpuscular Hemoglobin Concent 32.9 g/dL (31-35) Red Cell Distribution Width 17.0 % (11.7-14.4) Platelet Count 10 x10e3/uL (140-360) Neutrophils (%) (Auto) 65.2 % (38.7-80.0) Lymphocytes (%) (Auto) 19.1 % (18.0-39.1) Monocytes (%) (Auto) 12.8 % (4.4-11.3) Eosinophils (%) (Auto) 0.9 % (0.0-6.0) Basophils (%) (Auto) 0.9 % (0.0-1.0) Neutrophils # (Auto) 3.0 (2.1-6.9) Lymphocytes # (Auto) 0.9 (1.0-3.2) Monocytes # (Auto) 0.6 (0.2-0.8) Eosinophils # (Auto) 0.0 (0.0-0.4) Basophils # (Auto) 0.0 (0.0-0.1) Absolute Immature Granulocyte (auto 0.05 x10e3/uL (0-0.1) Prothrombin Time 14.1 seconds (11.9-14.5) Prothromb Time International Ratio 1.03 Activated Partial Thromboplast Time 29.7 seconds (23.8-35.5) Sodium Level 136 mmol/L (136-145) Potassium Level 4.4 mmol/L (3.5-5.1) Chloride Level 104 mmol/L (98-107) Carbon Dioxide Level 20 mmol/L (22-29) Anion Gap 16.4 mmol/L (8-16) Blood Urea Nitrogen 33 mg/dL (7-26) Creatinine 1.41 mg/dL (0.57-1.11) Estimat Glomerular Filtration Rate 36 ML/MIN (60-) BUN/Creatinine Ratio 23 (6-25) Glucose Level 94 mg/dL (74-118) Calcium Level 8.5 mg/dL (8.4-10.2) Magnesium Level 2.3 MG/DL (1.3-2.1) Total Bilirubin 2.0 mg/dL (0.2-1.2) Aspartate Amino Transf (AST/SGOT) 89 IU/L (5-34) Alanine Aminotransferase (ALT/SGPT) 27 IU/L (0-55) Alkaline Phosphatase 70 IU/L (40-150) Creatine Kinase 258 IU/L (29-168) Creatine Kinase MB 2.40 ng/mL (0-5.0) Troponin I 0.529 ng/mL (0-0.300) B-Type Natriuretic Peptide 133.2 pg/mL (0-100) Total Protein 9.5 g/dL (6.5-8.1) Albumin 3.4 g/dL (3.5-5.0) Globulin 6.1 g/dL (2.3-3.5) Albumin/Globulin Ratio 0.6 (0.8-2.0) Lab results reviewed: Yes Laboratory comments PLATELETS 10, TROP 0.529 Imaging Imaging results reviewed: Yes Diagnostics Tests Diagnostic test(s) reviewed: Yes Procedures 12 Lead ECG Interpretation ECG Interpretation : ECG: ECG 1 Monitoring And Evaluation Advisor: Interpreted by ED physician Date: Oct 30, 2019 Time: 13:32 Rhythm: sinus rhythm Rate: normal (69) QRS axis: normal ST segments normal: Yes T waves normal: Yes Clinical Impression: normal ECG Assessment & Plan Medical Decision Making MDM COUGH (REPORTEDLY, NONE HERE), DIARRHEA, SOB - CHECK CBC, CHEM, CARDIACS, ECG, CXR, COVID19 SWAB, UA, PANCX'S - R/O STEMI/NSTEMI, ELECTROLYTE ABNL, PNEUMONIA, COVID19, UTI Reassessment Reassessment PLATELETS 10 - WILL GET STAT CT BRAIN. TROP ELEVATED - SPOKE WITH DR YEPEZ, WILL SEE PT. DR LOPEZ CALLED FOR ADMIT - FULL TO TELE FLOOR, WILL SEE PT Assessment & Plan Final Impression: (1) Pancytopenia (2) Severe thrombocytopenia (3) Elevated troponin Depart Disposition: ADMITTED Last Vital Signs Date Time Temp Pulse Resp B/P (MAP) Pulse Ox O2 Delivery O2 Flow Rate FiO2 10/30/19 12:45 77 16 156/90 100 10/30/19 11:57 97.4 Home Meds Reported Medications Furosemide (FUROSEMIDE) 20 Mg Tablet, 20 MG PO BID 06/17/18 Hydrocodone Bit/Acetaminophen (HYDROCODON-ACETAMINOPHEN 5-325) 1 Each Tablet, 1 TAB PO Q6H PRN for PAIN 06/17/18 Lorazepam (ATIVAN) 1 Mg Tablet, 1 MG PO BID 05/27/18 Diphenhydramine Hcl (BENADRYL) 25 Mg Capsule, 25 MG PO Q4PRN 03/31/13 Chlordiazepoxide Hcl (CHLORDIAZEPOXIDE HCL) 10 Mg Capsule, 10 MG PO DAILY, 0 Refills 12/03/12 Medications in the ED Pantoprazole Sodium 40 mg ONCE ONCE IV ; Start 10/30/19 at 12:30; Stop 10/30/19 at 12:31; Status DC Ondansetron HCl 4 mg ONCE STAT IV ; Start 10/30/19 at 12:01; Stop 10/30/19 at 12:09; Status DC Sodium Chloride 1,000 ml @ 0 mls/hr Q0M STAT IV ; Start 10/30/19 at 12:01; Stop 10/30/19 at 12:04; Status DC LEELA ATKINSON MD Oct 30, 2019 14:40
--- NOTE | 2019-10-30 15:37 | Diagnostic Imaging Report ---
CT BRAIN WO HISTORY: Headache COMPARISON: MRI of the brain 06/18/[address] 05/26/2018 Technique: Noncontrast axial scans were obtained from skull base to the vertex. Coronal and sagittal reconstructions obtained from the axial data. One or more of the following dose reduction techniques were used: Automated exposure control, adjustment of the mA and/or kV according to patient size, and/or utilization of iterative reconstruction technique. DISCUSSION: Scalp/Skull: Unremarkable. Brain sulci: Prominent Ventricles: Compensatory dilatation. Extra-axial spaces: No masses or fluid collections. Carotid siphon calcifications are present. Parenchyma: Mild bilateral deep white matter hypodensity is likely chronic microvascular ischemic change. Otherwise, no masses, hemorrhage, or large vascular territory acute infarct. Dural sinuses: No abnormal densities. Sellar/Suprasellar region: Intact. Skull base: Intact. Incidental findings: Bilateral ocular lens replacement. IMPRESSION: 1. No acute intracranial abnormalities. 2. Mild supratentorial chronic microvascular ischemic change. Generalized cerebral volume loss. Signed by: Dr. Willie Hernandez M.D. on 10/30/2019 3:33 PM
[2019-10-30] MEDS ORDERED: ONDANSETRON HCL INJ 2MG/ML 2ML 2 MG/ML VIAL IV PRN (16:00)
--- OUTSIDE RECORDS SUMMARY | 2019-10-30 16:06 | XMS REPORT | Continuity of Care Document ---
Author Author [facility] t Organization [facility] Address [address] [place] [address] Phone Unavailable Care Team Providers Care Fuel Management Handler Name Role Phone DYAN LOPEZ MD PCP Perla LOPEZ Attphys Unavailable OFORDJO ANN FRANK Attphys Unavailable LAZARIDIS, DENISE Attphys Unavailable DYAN LOPEZ Admphys Unavailable LAZARIMIKY, DENISE Admphys Unavailable Payers Payer Name Policy Type Policy Number Effective Date Expiration Date [facility] [id number] 2014 00:00:00 [facility] Medicare A & B [id number] 2007 00:00:00 [facility] Problems Condition Name Condition Details Condition Category Status Onset Date Resolution Date Last Treatment Date Treating Clinician Comments Source Seizure Seizure Disease Active 2016-09-03 00:00:00 [facility] Dehydration Dehydration Problem Active [facility] Status epilepticus Status epilepticus Problem Active [facility] Allergies, Adverse Reactions, Alerts Allergy Name Allergy Type Status Severity Reaction(s) Onset Date Inacti ve Date Treating Clinician Comments Source Heparin Analogues Allergy to Substance Active Severe 2018-05-22 8 00:00:00 [facility] Sulfa (Sulfonamide Antibiotics) Allergy to Substance Active Moder ate 2018-06-17 00:00:00 [facility] Diazepam Allergy to Substance Active 2018-06-17 00:00:00 [facility] Morphine Allergy to Substance Active Moderate 2018-06-17 00:00:00 [facility] Methotrexate Allergy to Substance Active 2018-06-17 00:00:0 0 [facility] Levetiracetam Allergy to Substance Active 2018-06-17 00:00: 00 [facility] Celecoxib Propensity to adverse reactions Active 2016-09-22 00:00:00 [facility] Azathioprine Sodium Propensity to adverse reactions Active 2016-09-22 00:00:00 [facility] Levofloxacin Propensity to adverse reactions Active 201 11-22-04 00:00:00 [facility] Methotrexate Analogues Propensity to adverse reactions Active 2016-09-22 00:00:00 [facility] Sulfa (Sulfonamide Antibiotics) Propensity to adverse reactions Activ e 2016-09-22 00:00:00 [facility] Rivaroxaban Propensity to adverse reactions Active 2016 00:00:00 [facility] Heparin Analogues Propensity to adverse reactions Active 2016-09-03 00:00:00 [facility] Morphine Drug Intolerance Active Anxiety 2016-09-03 00:00:00 [facility] Social History Social Habit Start Date Stop Date Quantity Comments Source Sex Assigned At [facility] Medications Ordered Medication Name Filled Medication Name Start Date Stop Da te Current Medication? Ordering Clinician Indication Dosage Frequency Signature (SIG) Comments Components Source LORazepam (ATIVAN) 0.5 MG tablet 2016-09-22 18:50:08 Yes .5mg Take 0.5 mg by mouth every 6 (six) hours as needed for Anxiety. [facility] chlordiazePOXIDE (LIBRIUM) 10 MG capsule 2016-09-22 18:50:08 Yes 10mg Take 10 mg by mouth 3 (three) times daily as needed for Anxiety. [facility] furosemide (LASIX) 20 MG tablet 2016-09-22 18:50:08 Yes 20mg Q.5D Take 20 mg by mouth 2 (two) times daily. [facility] HYDROcodone-acetaminophen (NORCO) 5-325 mg per tablet 2016-09-22 18:50:08 Yes 1{tbl} Take 1 tablet by mouth ev joe 6 (six) hours [facility] (TOPROL-XL[facility] 25 MG 24 hr tablet 2016-09-22 18:50:08 Yes 25mg QD Take 25 mg by mouth daily. [facility] ibuprofen (ADVIL,MOTRIN) 800 MG tablet 2016-09-22 18:50:08 Yes 800mg Take 800 mg by mouth every 6 (six) hours as needed for Pain. [facility] predniSONE (DELTASONE) 10 MG tablet 2016-09-04 16:48:05 Yes 10mg QD Take 10 mg by mouth daily . [facility] aspirin 81 MG chewable tablet 2016-09-04 11:43:48 Yes 81mg QD Take 81 mg by mouth daily. [facility] Chlordiazepoxide Hcl 10 Mg Capsule Chlordiazepoxide Hcl 10 Mg Capsule Yes 10 Daily [facility] Diphenhydramine Hcl (Benadryl) 25 Mg Capsule Diphenhyd ramine Hcl (Benadryl) 25 Mg Capsule Yes 25 Q4prn [facility] Furosemide 20 Mg Tablet Furosemide 20 Mg Tablet Yes 20 Twice A Day [facility] Hydrocodone Bit/Acetaminophen (Hydrocodon-Acetaminophe n 5-325) 1 Each Tablet Hydrocodone Bit/Acetaminophen (Hydrocodon-Acetaminophen 5-325) 1 Each Tablet Yes 1 Every 6 Hours as needed for Pain [facility] Lorazepam (Ativan) 1 Mg Tablet Lorazepam (Ativan) 1 Mg Tablet Yes 1 Twice A Day [facility] Furosemide (Lasix) 40 Mg Tablet, 10 Mg Oral Furosemide (Lasix) 40 Mg Tablet, 10 Mg Oral 2018-06-17 00:00:00 No 10 Daily [facility] Amiodarone Hcl 200 Mg Tablet, 200 Mg Oral Amiodarone H cl 200 Mg Tablet, 200 Mg Oral 2018-05-27 00:00:00 No 200 Daily [facility] Aspirin (Lo-Dose Aspirin Ec) 81 Mg Tablet., 81 Mg Or al Aspirin (Lo-Dose Aspirin Ec) 81 Mg Tablet., 81 Mg Oral 2018-05-27 00:00:00 No 81 Daily [facility] Chlordiazepoxide/Clidinium Br (Librax Capsule) 1 Each Capsule, 1 Tab Oral Chlordiazepoxide/Clidinium Br (Librax Capsule) 1 Each Capsule, 1 Tab Oral 2018-05-27 00:00:00 No 1 Daily [facility] Digoxin 125 Mcg Tablet, 125 Mcg Oral Digoxin 125 Mcg Tablet, 125 Mcg Oral 2018-05-27 00:00:00 No 125 Daily [facility] Famotidine 20 Mg Tab, 20 Mg Oral Famotidine 20 Mg Tab, 20 Mg Ora l 2018-05-27 00:00:00 No 20 Twice A Day [facility] Ferrous Sulfate (Iron) 325 Mg Tablet, 325 Mg Oral Ferr ous Sulfate (Iron) 325 Mg Tablet, 325 Mg Oral 2018-05-27 00:00:00 No 325 Ada y [facility] Furosemide 20 Mg Tablet, 20 Mg Oral Furosemide 20 Mg Tablet, 20 Mg Oral 2018-05-27 00:00:00 No 20 Daily [facility] Lamotrigine (Lamictal) 150 Mg Tablet, 150 Mg Oral Lamo trigine (Lamictal) 150 Mg Tablet, 150 Mg Oral 2018-05-27 00:00:00 No 150 Twic e A Day [facility] Lorazepam (Ativan) 2 Mg/1 Ml Vial, 2 Mg Sub-Q Lorazepa m (Ativan) 2 Mg/1 Ml Vial, 2 Mg Sub-Q 2018-05-27 00:00:00 No 2 Q2prn [facility] Meclizine Hcl (Antivert) 25 Mg Tablet, 25 Mg Oral Mecl izine Hcl (Antivert) 25 Mg Tablet, 25 Mg Oral 2018-05-27 00:00:00 No 25 Twice A Day [facility] Metoprolol Tartrate 25 Mg Tablet, 12.5 Mg Oral Metopro lol Tartrate 25 Mg Tablet, 12.5 Mg Oral 2018-05-27 00:00:00 No 12.5 Daily [facility] Potassium Chloride 10 Meq Tab.er.prt, 10 Mg Oral Potas sium Chloride 10 Meq Tab.er.prt, 10 Mg Oral 2018-05-27 00:00:00 No 10 D aily [facility] Prednisone 10 Mg Tab, 15 Mg Oral Prednisone 10 Mg Tab, 15 Mg Ora l 2018-05-27 00:00:00 No 15 Daily [facility] Tramadol Hcl (Ultram 50MG*) 50 Mg Tab, 50 Mg Oral Tram adol Hcl (Ultram 50MG*) 50 Mg Tab, 50 Mg Oral 2018-05-27 00:00:00 No 50 Q6prn [facility] Enalapril Maleate (Vasotec) 20 Mg Tablet, 20 Mg Oral E nalapril Maleate (Vasotec) 20 Mg Tablet, 20 Mg Oral 2013-03-31 00:00:00 No 20 Daily [facility] Phenytoin Sodium Extended (Dilantin) 100 Mg Capsule, 1 00 Mg Oral Phenytoin Sodium Extended (Dilantin) 100 Mg Capsule, 100 Mg Oral 2013-03-21 1 00:00:00 No 100 Three Times A Day [facility] Prednisone 10 Mg Tab, 15 Mg Oral Prednisone 10 Mg Tab, 15 Mg Ora l 2013-03-31 00:00:00 No 15 Daily [facility] Warfarin Sodium (Coumadin) 4 Mg Tablet, 4 Mg Oral Warf aguilar Sodium (Coumadin) 4 Mg Tablet, 4 Mg Oral 2013-03-31 00:00:00 No 4 Lesa ly At 1700 [facility] Aspirin 81 Mg Tab.chew, 81 Mg Oral Aspirin 81 Mg Tab.chew, 81 Mg Oral 2013-03-05 00:00:00 No 81 Daily [facility] Enalapril Maleate 20 Mg Tablet, 20 Mg Oral Enalapril M aleate 20 Mg Tablet, 20 Mg Oral 2013-02-23 00:00:00 No 20 Daily [facility] Hydroxyzine Hcl 25 Mg Tablet, 25 Mg Oral Hydroxyzine H cl 25 Mg Tablet, 25 Mg Oral 2013-02-23 00:00:00 No 25 As Needed [facility] Levothyroxine Sodium 50 Mcg Tablet, 50 Mcg Oral Levoth yroxine Sodium 50 Mcg Tablet, 50 Mcg Oral 2013-02-23 00:00:00 No 50 Ada y [facility] Cyclobenzaprine Hcl 10 Mg Tablet, 10 Mg Oral Cyclobenz aprine Hcl 10 Mg Tablet, 10 Mg Oral 2013-02-22 00:00:00 No 10 As Needed [facility] Iron,Carbonyl (Iron) 45 Mg Tablet, 65 Mg Oral Iron,Car bonyl (Iron) 45 Mg Tablet, 65 Mg Oral 2013-02-22 00:00:00 No 65 Daily [facility] Procedures Procedure Date / Time Performed Performing Clinician [facility] e Magnetic resonance imaging of brain without contrast 2018-05 00:00:00 AXEL VILLA [facility] Computed tomography of brain without radiopaque contrast 201 01-19-06 00:00:00 LEELA ATKINSON [facility] Computed tomography of cervical spine without contrast 05-26 00:00:00 LEELA ATKINSON [facility] Computed tomography of thoracic spine without contrast 05-26 00:00:00 LEELA ATKINSON [facility] Magnetic resonance imaging of thoracic spine without t hen with contrast 2018-05-26 00:00:00 YENNY JAY [facility] Encounters Start Date/Time End Date/Time Encounter Type Admission Type [facility] Care Department Encounter ID Source 2018-06-17 17:33:00 2018-06-19 17:31:00 [facility] [id number] [facility] 2018-05-27 09:44:00 2018-05-30 17:44:00 Discharged Inpatient 1 [facility] [id number] [facility] Results Test Description Test Time Test Comments Results Result Comments Source CT BRAIN WO 2019-10-30 15:29:00 [facility] [address] [place], [place] [address] Patient Name: KAMI SKINNER MR #: [id number] : 1940 Age/Sex: 79/F Req #: [id number] Adm Physician: Ordered by: LEELA ATKINSON MD Report #: [id number] Location: ER Room/Bed: Procedure: [id number] CT/CT BRAIN WO Exam Date: Exam Time: REPORT STATUS: Signed CT BRAIN WO HISTORY: Headache COMPARISON: MRI of the brain 06/18/[address] 05/26/2018 Technique: Noncontrast axial scans were obtained from skull base to the vertex. Coronal and sagittal reconstructions obtained from the axial data. One or more of the following dose reduction techniques were used: Automated exposure control, adjustment of the mA and/or kV according to patient size, and/or utilization of iterative reconstruction technique. DISCUSSION: Scalp/Skull: Unremarkable. Brain sulci: Prominent Ventricles: Compensatory dilatation. Extra-axial spaces: No masses or fluid collections. Carotid siphon calcifications are present. Parenchyma: Mild bilateral deep white matter hypodensity is likely chronic microvascular ischemic change. Otherwise, no masses, hemorrhage, or large vascular territory acute infarct. Dural sinuses: No abnormal densities. Sellar/Suprasellar region: Intact. Skull base: Intact. Incidental findings: Bilateral ocular lens replacement. IMPRESSION: 1. No acute intracranial abnormalities. 2. Mild supratentorial chronic microvascular ischemic change. Generalized cerebral volume loss. Signed by: Dr. Willie Hernandez M.D. on 10/30/2019 3:33 PM Dictated By: WILLIE HERNANDEZ MD 32 Transcribed By: SHANA on 10/30/191532 COPY TO: LEELA ATKINSON MD [facility] (PORTABLE) 2019-10-30 12:49:00 [place] [address] Patient Name: KAMI SKINNER MR #: [id number] : 1940 Age/Sex: 79/F Req #: [id number] Adm Physician: Ordered by: LEELA ATKINSON MD Report #: [id number] Location: ER Room/Bed: Procedure: [id number] DX/CHEST SINGLE (PORTABLE) Exam Date: Exam Time: REPORT STATUS: Signed EXAMINATION: CHEST SINGLE (PORTABLE) INDICATION: Cough COMPARISON: Chest radiograph of 06/18/2018 FINDINGS: LINES/TUBES:None LUNGS:The lungs are well-inflated. No focal consolidation or pulmonary edema. PLEURA:No pleural effusion or pneum othorax. MEDIASTINUM:The cardiomediastinal silhouette appears normal in size and shape. BONES/SOFT TISSUES:No acute osseous injury. ABDOMEN:No free air under the diaphragm. IMPRESSION: No focal pneumonia or pulmonary edema. Signed by: Soy Castro MD on 10/30/2019 12:49 PM Dictated By: SOY CASTRO MD 1249 Transcribed By: SHANA on 10/30/19 1249 COPY TO: LEELA ATKINSON MD Sodium Level 2018-06-19 05:39:00 Test Item Sodium Level (test code = 2951-2) 136 136-145 [facility] Ssfqp5607-84-59 05:39:00* Test Item Value Reference Range Interpretation Comments Potassium Level (test code = 2823-3) 3.7 3.5-5.1 [facility] DistrictChloride Jpkwe1346-14-91 05:39:00* Test Item Value Reference Range Interpretation Comments Chloride Level (test code = 2075-0) 108 98-107 H [facility] DistrictCarbon Dioxide Zaezn4581-27-84 05:39:00* Test Item Value Reference Range Interpretation Comments Carbon Dioxide Level (test code = 2028-9) 20 22-29 L [facility] DistrictAnion Lmn3694-23-80 05:39:00* Test Item Value Reference Range Interpretation Comments Anion Gap (test code = 86102-1) 11.7 8-16 [facility] District[facility] Urea Pyfmzlza9517-37-93 05:39:00* Test Item Value Reference Range Interpretation Comments Blood Urea Nitrogen (test code = 3094-0) 15 7-26 [facility] DistrictCreatinine2019-01-30 05:39:00* Test Item Value Reference Range Interpretation Comments Creatinine (test code = 2160-0) 0.75 0.57-1.11 [facility] DistrictBUN/Creatinine Qalzh8562-48-37 05:39:00* Test Item Value Reference Range Interpretation Comments BUN/Creatinine Ratio (test code = 3097-3) 20 6-25 [facility] DistrictEstimat Glomerular Filtration Rate 2018-06-19 05:39:00* Test Item Value Reference Range Interpretation Comments Estimat Glomerular Filtration Rate (test code = 011641607) > 60 >60 Ranges were taken from the National Kidney Disease Education Program and the [facility] Kidney Foundation literature.Reference ranges:60 or greater: Coiggl03-11 ( for 3 consecutive months): Chronic kidney disease 15 or less: Kidney failureBallinger Memorial Hospital DistrictGlucose Hpvfv3540-90-58 05:39:00* Test Item Value Reference Range Interpretation Comments Glucose Level (test code = TZG8958) 77 74-118 [facility] DistrictCalcium Heffj8148-75-22 05:39:00* Test Item Value Reference Range Interpretation Comments Calcium Level (test code = 86669-3) 8.1 8.4-10.2 L [facility] DistrictTotal Yxcycgyif1113-24-78 05:39:00* Test Item Value Reference Range Interpretation Comments Total Bilirubin (test code = 1975-2) 0.4 0.2-1.2 [facility] DistrictAspartate Amino Transf (AST/SGOT) 2018-06-19 05:39:00* Test Item Value Reference Range Interpretation Comments Aspartate Amino Transf (AST/SGOT) (test code = Aspartate Amino Transf (AST/SGOT)) 22 5-34 [facility] DistrictAlanine Aminotransferase (ALT/SGPT) 2018-06-19 05:39:00* Test Item Value Reference Range Interpretation Comments Alanine Aminotransferase (ALT/SGPT) (test code = 1742-6) 11 0-55 [facility] DistrictTotal Pcwjhhu1402-61-04 05:39:00* Test Item Value Reference Range Interpretation Comments Total Protein (test code = 2885-2) 7.4 6.5-8.1 [facility] DistrictAlbumin2019-01-30 05:39:00* Test Item Value Reference Range Interpretation Comments Albumin (test code = 1751-7) 2.5 3.5-5.0 L [facility] DistrictGlobulin2019-01-30 05:39:00* Test Item Value Reference Range Interpretation Comments Globulin (test code = 70015-6) 4.9 2.3-3.5 H [facility] DistrictAlbumin/Globulin Tjvii8320-40-63 05:39:00 * Test Item Value Reference Range Interpretation Comments Albumin/Globulin Ratio (test code = 1759-0) 0.5 0.8-2.0 L [facility] DistrictAlkaline Rltkdzhagnq6232-55-08 05:39:00* Test Item Value Reference Range Interpretation Comments Alkaline Phosphatase (test code = 6768-6) 149 40-150 [facility] DistrictWhite Blood Vekvt2717-59-43 05:18:00* Test Item Value Reference Range Interpretation Comments White Blood Count (test code = 6690-2) 2.99 4.8-10.8 L [facility] DistrictRed Blood Qghdl7307-00-74 05:18:00* Test Item Value Reference Range Interpretation Comments Red Blood Count (test code = 789-8) 2.88 3.6-5.1 L [facility] DistrictHemoglobin2019-01-30 05:18:00* Test Item Value Reference Range Interpretation Comments Hemoglobin (test code = 71205-9) 8.5 12.0-16.0 L [facility] DistrictHematocrit2019-01-30 05:18:00* Test Item Value Reference Range Interpretation Comments Hematocrit (test code = 4544-3) 27.0 34.2-44.1 L [facility] DistrictMean Corpuscular Vibufl8211-37-63 05:18:00* Test Item Value Reference Range Interpretation Comments Mean Corpuscular Volume (test code = 787-2) 93.8 81-99 [facility] DistrictMean Corpuscular Yjwejolcav7101-24-39 05:18:00* Test Item Value Reference Range Interpretation Comments Mean Corpuscular Hemoglobin (test code = 785-6) 29.5 28-32 [facility] DistrictMean Corpuscular Hemoglobin Concent 2018-06-19 05:18:00* Test Item Value Reference Range Interpretation Comments Mean Corpuscular Hemoglobin Concent (test code = 786-4) 31.5 31-35 [facility] DistrictRed Cell Distribution Wxwpf9433-92-36 05:18:00* Test Item Value Reference Range Interpretation Comments Red Cell Distribution Width (test code = 11099-4) 15.4 11.7 -14.4 H [facility] DistrictPlatelet Jsyuk1481-79-95 05:18:00* Test Item Value Reference Range Interpretation Comments Platelet Count (test code = 777-3) 144 140-360 [facility] DistrictNeutrophils (%) (Auto)2018-06-19 05:18:00 * Test Item Value Reference Range Interpretation Comments Neutrophils (%) (Auto) (test code = 91520-0) 70.5 38.7-80.0 [facility] DistrictLymphocytes (%) (Auto)2018-06-19 05:18:00 * Test Item Value Reference Range Interpretation Comments Lymphocytes (%) (Auto) (test code = 736-9) 15.7 18.0-39.1 L [facility] DistrictMonocytes (%) (Auto)2018-06-19 05:18:00* Test Item Value Reference Range Interpretation Comments Monocytes (%) (Auto) (test code = 5905-5) 7.4 4.4-11.3 [facility] DistrictEosinophils (%) (Auto)2018-06-19 05:18:00 * Test Item Value Reference Range Interpretation Comments Eosinophils (%) (Auto) (test code = 713-8) 6.4 0.0-6.0 H [facility] DistrictBasophils (%) (Auto)2018-06-19 05:18:00* Test Item Value Reference Range Interpretation Comments Basophils (%) (Auto) (test code = 706-2) 0.0 0.0-1.0 [facility] DistrictIM GRANULOCYTES %2018-06-19 05:18:00* Test Item Value Reference Range Interpretation Comments IM GRANULOCYTES % (test code = IM GRANULOCYTES %) 0.0 0.0- 1.0 [facility] DistrictNeutrophils # (Auto)2018-06-19 05:18:00* Test Item Value Reference Range Interpretation Comments Neutrophils # (Auto) (test code = 751-8) 2.1 2.1-6.9 [facility] DistrictLymphocytes # (Auto)2018-06-19 05:18:00* Test Item Value Reference Range Interpretation Comments Lymphocytes # (Auto) (test code = 97288-1) 0.5 1.0-3.2 L [facility] DistrictMonocytes # (Auto)2018-06-19 05:18:00* Test Item Value Reference Range Interpretation Comments Monocytes # (Auto) (test code = 742-7) 0.2 0.2-0.8 [facility] DistrictEosinophils # (Auto)2018-06-19 05:18:00* Test Item Value Reference Range Interpretation Comments Eosinophils # (Auto) (test code = 711-2) 0.2 0.0-0.4 [facility] DistrictBasophils # (Auto)2018-06-19 05:18:00* Test Item Value Reference Range Interpretation Comments Basophils # (Auto) (test code = 704-7) 0.0 0.0-0.1 [facility] DistrictAbsolute Immature Granulocyte (auto 2018-06-19 05:18:00* Test Item Value Reference Range Interpretation Comments Absolute Immature Granulocyte (auto (mikey t code = Absolute Immature Granulocyte (auto) 0 0-0.1 [facility] DistrictB-Type Natriuretic Pgouzan0313-32-40 11:00:00* Test Item Value Reference Range Interpretation Comments B-Type Natriuretic Peptide (test code = 18353-2) 234.4 0-100 H [facility] DistrictMRI BRAIN UG5471-60-07 10:41:00 [facility] [address] [place] [address] Patient Name: KAMI SKINNER MR #: [id number] : 1940 Age/Sex: 77/F Req #: [id number] Adm Physician: DYAN LOPEZ MD Ordered by: AXEL VILLA M.D. Report #: [id number] Location: MED/SURG Room/Bed: [facility] Procedure: [id number] MRI/MRI BRAIN WO Exam [...] AXEL VILLA MD CHEST SINGLE (PORTABLE)2018-06-18 05:44:00 [place] [address] Patient Name: KAMI SKINNER MR #: [id number] : 1940 Age/Sex: 77/F Req #: [id number] Adm Physician: DYAN LOPEZ MD Ordered by: DYAN LOPEZ MD Report #: [id number] Location: MED/SURG Room/Bed: [facility] Procedure: [id number] DX /CHEST SINGLE (PORTABLE) Exam Date: 06/18/18 [...] 5:45 AM Dictated By: MERVAT BISHOP MD Transcribed By: SHANA on 06/18/18544 COPY TO: DYAN LOPEZ MD CHEST XRAY LINE PTARSKSLP8429-21-34 21:35:00 [place] [address] Patient Name: KAMI SKINNER MR #: [id number] : 1940 Age/Sex: 77/F Req #: [id number] Adm Physician: DYAN LOPEZ MD Ordered by: EMMY SMITH MD Report #: [id number] Location: MED/SURG Room/Bed: [facility] Procedure: [id number] DX/CHEST XRAY LINE PLACEMENT Exam Date: 06/17/18 Exam Time: 2129 REPORT STATUS: Si gned CHEST XRAY LINE [...] Thyroid Stimulating Hormone (TSH) (test code = 81970-9) 1.448 0.350-4.940 [facility] DistrictPhosphorus Fhvbm8189-75-16 17:11:00* Test Item Value Reference Range Interpretation Comments Phosphorus Level (test code = OAD1410) 3.2 2.3-4.7 [facility] DistrictMagnesium Ybrst6791-81-64 17:11:00* Test Item Value Reference Range Interpretation Comments Magnesium Level (test code = 80997-4) 1.7 1.3-2.1 [facility] DistrictUrine Hupgr7330-78-74 17:01:00* Test Item Value Reference Range Interpretation Comments Urine Color (test code = 5778-6) YELLOW YELLOW [facility] DistrictUrine Rtoneto2967-37-92 17:01:00* Test Item Value Reference Range Interpretation Comments Urine Clarity (test code = 80250-1) HAZY CLEAR [facility] DistrictUrine Specific Iwmdlwk7021-16-88 17:01:00 * Test Item Value Reference Range Interpretation Comments Urine Specific [place] (test code = 5811-5) 1.010 1.010-1.02 5 [facility] DistrictU[facility] mF8585-57-52 17:01:00* Test Item Value Reference Range Interpretation Comments Urine pH (test code = 44710-8) 5 5-7 [facility] DistrictU[facility] Leukocyte Owbdpkyn3725-22-27 17:01:00* Test Item Value Reference Range Interpretation Comments Urine Leukocyte Esterase (test code = 5799-2) NEGATIVE NEGATIVE [facility] DistrictU[facility] Dagnghd3135-44-43 17:01:00* Test Item Value Reference Range Interpretation Comments Urine Nitrite (test code = 76741-7) NEGATIVE NEGATIVE [facility] DistrictU[facility] Vhtfnio6863-38-65 17:01:00* Test Item Value Reference Range Interpretation Comments Urine Protein (test code = 5804-0) NEGATIVE NEGATIVE [facility] DistrictU[facility] Glucose (UA)2018-06-17 17:01:00* Test Item Value Reference Range Interpretation Comments Urine Glucose (UA) (test code = 2349-9) NEGATIVE NEGATIVE [facility] DistrictUrine Pyidwol4777-06-03 17:01:00* Test Item Value Reference Range Interpretation Comments Urine Ketones (test code = 25004-6) NEGATIVE NEGATIVE [facility] DistrictU[facility] Opiates Ulityx8148-79-36 17:01:00* Test Item Value Reference Range Interpretation Comments Urine Opiates Screen (test code = 15813-8) POSITIVE NEGATIVE H ALL TESTS PERFORMED MANUALLY ON [employer] TOX/SEE TEST This test provides only a sc reen. Positive results should be repeated by a confirmatory test.[facility] DistrictU[facility] Barbiturates Nimyxj4184-82-68 17:01:00* Test Item Value Reference Range Interpretation Comments Urine Barbiturates Screen (test code = 886441140) NEGATIVE NEGA TIVE [facility] DistrictU[facility] Phencyclidine Kidyvm0978-00-27 17:01:00* Test Item Value Reference Range Interpretation Comments Urine Phencyclidine Screen (test code = 43741-6) NEGATIVE NEGAT ORESTES [facility] DistrictU[facility] Amphetamines Fowofy5896-61-44 17:01:00* Test Item Value Reference Range Interpretation Comments Urine Amphetamines Screen (test code = 86756-6) NEGATIVE NEGATI VE [facility] DistrictU[facility] Methamphetamines Hlextu6509-54-47 17:01:00* Test Item Value Reference Range Interpretation Comments Urine Methamphetamines Screen (test code = Urine Metha mphetamines Screen) NEGATIVE NEGATIVE [facility] DistrictU[facility] Benzodiazepines Naokiz1353-43-51 17:01:00* Test Item Value Reference Range Interpretation Comments Urine Benzodiazepines Screen (test code = 01885-6) POSITIVE NEG ATIVE H This test provides only a screen. Positive results should be repeated by a confi rmatory test.[facility] DistrictU[facility] Cocaine Screen 2018-06-17 17:01:00* Test Item Value Reference Range Interpretation Comments Urine Cocaine Screen (test code = 3398-5) NEGATIVE NEGATIVE [facility] Cannabinoids Fgvezn4413-69-53 17:01:00* Test Item Value Reference Range Interpretation Comments Urine Cannabinoids Screen (test code = 54314-4) NEGATIVE NEGATI VE THESE RESULTS ARE FOR MEDICAL TREATMENT ONLYTHIS REPORT CONTAINS UNCONFIR MED SCREENING RESULTS*POSITIVE RESULTS WILL BE CONFIRMED BY REFERENCE LAB UPON R EQUEST CUT-OFFDRUG CLASS CONCENTRATION ng/mLAmphetamines 1000Methamphetamines 1000Cocaine 300Opiate 300Phencyc lidine 25Cannabinoid 50Barbiturates 300Benzodiazepine 300Methadone 300[facility] DistrictU[facility] Methadone Fugpjf5179-35-24 17:01:00* Test Item Value Reference Range Interpretation Comments Urine Methadone Screen (test code = 14548-3) NEGATIVE NEGATIVE THESE RESULTS ARE FOR MEDICAL TREATMENT ONLYTHIS REPORT CONTAINS UNCONFIR MED SCREENING RESULTS*POSITIVE RESULTS WILL BE CONFIRMED BY REFERENCE LAB UPON R EQUEST CUT-OFFDRUG CLASS CONCENTRATION ng/mLAmphetamines 1000Methamphetamines 1000Cocaine Metabolite 300Opiate 300Phencyc lidine 25Cannabinoid 50Barbiturates 300Benzodiazepine 300Methadone 300[facility] DistrictUrine Jpzcslamlifj7010-90-53 17:01:00* Test Item Value Reference Range Interpretation Comments Urine Urobilinogen (test code = 86460-2) 0.2 0.2-1 [facility] DistrictU[facility] Zcegofpfc6738-23-13 17:01:00* Test Item Value Reference Range Interpretation Comments Urine Bilirubin (test code = 1978-6) NEGATIVE NEGATIVE [facility] Vokcu6359-39-73 17:01:00* Test Item Value Reference Range Interpretation Comments Urine Blood (test code = 06418-0) NEGATIVE NEGATIVE [facility] TCE6626-05-13 17:01:00* Test Item Value Reference Range Interpretation Comments Urine WBC (test code = 5821-4) NONE 0-5 [facility] OVN6824-39-55 17:01:00* Test Item Value Reference Range Interpretation Comments Urine RBC (test code = 30722-2) NONE 0-5 [facility] DistrictU[facility] Fatckqlq0661-19-10 17:01:00* Test Item Value Reference Range Interpretation Comments Urine Bacteria (test code = 55665-0) RARE NONE [facility] DistrictU[facility] Epithelial Qpzuz8389-72-74 17:01:00 * Test Item Value Reference Range Interpretation Comments Urine Epithelial Cells (test code = 30413-3) NONE NONE [facility] DistrictU[facility] Amorphous Featfdyi8479-69-36 17:01:00* Test Item Value Reference Range Interpretation Comments Urine Amorphous Sediment (test code = 8246-1) MANY FEW H [facility]odium Ostug9395-81-26 06:46:00* Test Item Value Reference Range Interpretation Comments Sodium Level (test code = 2951-2) 139 136-145 [facility] DistrictPotassium Buxuj6168-08-59 06:46:00* Test Item Value Reference Range Interpretation Comments Potassium Level (test code = 2823-3) 3.6 3.5-5.1 [facility] DistrictChloride Ditfx1715-01-55 06:46:00* Test Item Value Reference Range Interpretation Comments Chloride Level (test code = 2075-0) 103 98-107 [facility] DistrictCarbon Dioxide Blxgj0070-15-34 06:46:00* Test Item Value Reference Range Interpretation Comments Carbon Dioxide Level (test code = 2028-9) 26 22-29 [facility] DistrictAnion Tww5323-77-97 06:46:00* Test Item Value Reference Range Interpretation Comments Anion Gap (test code = 33700-4) 13.6 8-16 [facility] DistrictBlood Urea Vhysatbp6629-74-21 06:46:00* Test Item Value Reference Range Interpretation Comments Blood Urea Nitrogen (test code = 3094-0) 19 7-26 [facility] DistrictCreatinine2019-01-10 06:46:00* Test Item Value Reference Range Interpretation Comments Creatinine (test code = 2160-0) 0.75 0.57-1.11 [facility] DistrictBUN/Creatinine Jswze4383-15-84 06:46:00* Test Item Value Reference Range Interpretation Comments BUN/Creatinine Ratio (test code = 3097-3) 25 6-25 [facility] DistrictEstimat Glomerular Filtration Rate 2018-05-30 06:46:00* Test Item Value Reference Range Interpretation Comments Estimat Glomerular Filtration Rate (test code = 733905563) > 60 >60 Ranges were taken from the National Kidney Disease Education Program and the [facility] Kidney Foundation literature.Reference ranges:60 or greater: Kyqnrb31-16 ( for 3 consecutive months): Chronic kidney disease 15 or less: Kidney failureBallinger [facility] Hospital DistrictGlucose Bsdqw5460-75-10 06:46:00* Test Item Value Reference Range Interpretation Comments Glucose Level (test code = IRN0862) 86 74-118 [facility] DistrictCalcium Qccvp9935-25-39 06:46:00* Test Item Value Reference Range Interpretation Comments Calcium Level (test code = 29439-3) 8.6 8.4-10.2 [facility] DistrictTotal Qkpnsvxbj2869-27-41 06:46:00* Test Item Value Reference Range Interpretation Comments Total Bilirubin (test code = 1975-2) 0.6 0.2-1.2 [facility] DistrictAspartate Amino Transf (AST/SGOT) 2018-05-30 06:46:00* Test Item Value Reference Range Interpretation Comments Aspartate Amino Transf (AST/SGOT) (test code = Aspartate Amino Transf (AST/SGOT)) 110 5-34 H [facility] DistrictAlanine Aminotransferase (ALT/SGPT) 2018-05-30 06:46:00* Test Item Value Reference Range Interpretation Comments Alanine Aminotransferase (ALT/SGPT) (test code = 1742-6) 70 0-55 H [facility] DistrictTotal Ozdupra6327-72-55 06:46:00* Test Item Value Reference Range Interpretation Comments Total Protein (test code = 2885-2) 8.1 6.5-8.1 [facility] DistrictAlbumin2019-01-10 06:46:00* Test Item Value Reference Range Interpretation Comments Albumin (test code = 1751-7) 2.9 3.5-5.0 L [facility] DistrictGlobulin2019-01-10 06:46:00* Test Item Value Reference Range Interpretation Comments Globulin (test code = 06384-6) 5.2 2.3-3.5 H [facility] DistrictAlbumin/Globulin Bsxdu2688-84-52 06:46:00 * Test Item Value Reference Range Interpretation Comments Albumin/Globulin Ratio (test code = 1759-0) 0.6 0.8-2.0 L [facility] DistrictAlkaline Tqxekxswuin0681-88-60 06:46:00* Test Item Value Reference Range Interpretation Comments Alkaline Phosphatase (test code = 6768-6) 160 40-150 H [facility] DistrictWhite Blood Nprwu1054-14-75 06:18:00* Test Item Value Reference Range Interpretation Comments White Blood Count (test code = 6690-2) 3.59 4.8-10.8 L [facility] DistrictRed Blood Ruhzv0235-99-98 06:18:00* Test Item Value Reference Range Interpretation Comments Red Blood Count (test code = 789-8) 3.29 3.6-5.1 L [facility] DistrictHemoglobin2019-01-10 06:18:00* Test Item Value Reference Range Interpretation Comments Hemoglobin (test code = 86756-2) 10.1 12.0-16.0 L [facility] DistrictHematocrit2019-01-10 06:18:00* Test Item Value Reference Range Interpretation Comments Hematocrit (test code = 4544-3) 30.4 34.2-44.1 L [facility] DistrictMean Corpuscular Jcimlu7242-92-19 06:18:00* Test Item Value Reference Range Interpretation Comments Mean Corpuscular Volume (test code = 787-2) 92.4 81-99 [facility] DistrictMean Corpuscular Ramuwhncyi3110-19-25 06:18:00* Test Item Value Reference Range Interpretation Comments Mean Corpuscular Hemoglobin (test code = 785-6) 30.7 28-32 [facility] DistrictMean Corpuscular Hemoglobin Concent 2018-05-30 06:18:00* Test Item Value Reference Range Interpretation Comments Mean Corpuscular Hemoglobin Concent (test code = 786-4) 33.2 31-35 [facility] DistrictRed Cell Distribution Lvdha7139-61-95 06:18:00* Test Item Value Reference Range Interpretation Comments Red Cell Distribution Width (test code = 39322-3) 14.5 11.7 -14.4 H [facility] DistrictPlatelet Xyasc7220-32-78 06:18:00* Test Item Value Reference Range Interpretation Comments Platelet Count (test code = 777-3) 167 140-360 [facility] DistrictNeutrophils (%) (Auto)2018-05-30 06:18:00 * Test Item Value Reference Range Interpretation Comments Neutrophils (%) (Auto) (test code = 35363-2) 55.7 38.7-80.0 [facility] DistrictLymphocytes (%) (Auto)2018-05-30 06:18:00 * Test Item Value Reference Range Interpretation Comments Lymphocytes (%) (Auto) (test code = 736-9) 25.6 18.0-39.1 [facility] DistrictMonocytes (%) (Auto)2018-05-30 06:18:00* Test Item Value Reference Range Interpretation Comments Monocytes (%) (Auto) (test code = 5905-5) 12.3 4.4-11.3 H [facility] DistrictEosinophils (%) (Auto)2018-05-30 06:18:00 * Test Item Value Reference Range Interpretation Comments Eosinophils (%) (Auto) (test code = 713-8) 5.3 0.0-6.0 [facility] DistrictBasophils (%) (Auto)2018-05-30 06:18:00* Test Item Value Reference Range Interpretation Comments Basophils (%) (Auto) (test code = 706-2) 0.8 0.0-1.0 [facility] DistrictIM GRANULOCYTES %2018-05-30 06:18:00* Test Item Value Reference Range Interpretation Comments IM GRANULOCYTES % (test code = IM GRANULOCYTES %) 0.3 0.0- 1.0 [facility] DistrictNeutrophils # (Auto)2018-05-30 06:18:00* Test Item Value Reference Range Interpretation Comments Neutrophils # (Auto) (test code = 751-8) 2.0 2.1-6.9 L [facility] DistrictLymphocytes # (Auto)2018-05-30 06:18:00* Test Item Value Reference Range Interpretation Comments Lymphocytes # (Auto) (test code = 48665-1) 0.9 1.0-3.2 L [facility] DistrictMonocytes # (Auto)2018-05-30 06:18:00* Test Item Value Reference Range Interpretation Comments Monocytes # (Auto) (test code = 742-7) 0.4 0.2-0.8 [facility] DistrictEosinophils # (Auto)2018-05-30 06:18:00* Test Item Value Reference Range Interpretation Comments Eosinophils # (Auto) (test code = 711-2) 0.2 0.0-0.4 [facility] DistrictBasophils # (Auto)2018-05-30 06:18:00* Test Item Value Reference Range Interpretation Comments Basophils # (Auto) (test code = 704-7) 0.0 0.0-0.1 [facility] DistrictAbsolute Immature Granulocyte (auto 2018-05-30 06:18:00* Test Item Value Reference Range Interpretation Comments Absolute Immature Granulocyte (auto (mikey t code = Absolute Immature Granulocyte (auto) 0.01 0-0.1 [facility] DistrictCHEST SINGLE (PORTABLE)2018-05-29 11:15:00 [place] [address] Patient Name: KAMI SKINNER MR #: [id number] : 1940 Age/Sex: 77/F Req #: [id number] Adm Physician: DYAN LOPEZ MD Ordered by: DYAN LOPEZ MD Report #: [id number] Location: MED/SURG Room/Bed: 110-1 Procedure: [id number] DX /CHEST SINGLE (PORTABLE) Exam Date: 05/29/18 [...] 7 AM Dictated By: DEXTER ANG MD 1117 COPY TO: MICHAEL LOPEZ MD Differential Total Cells Krpidjy7450-39-67 08:54:00* Test Item Value Reference Range Interpretation Comments Differential Total Cells Counted (test code = Differen tial Total Cells Counted) 100 [facility] DistrictNeutrophils % (Manual)2018-05-29 08:54:00 * Test Item Value Reference Range Interpretation Comments Neutrophils % (Manual) (test code = 81035-5) 71 40-74 [facility] DistrictLymphocytes % (Manual)2018-05-29 08:54:00 * Test Item Value Reference Range Interpretation Comments Lymphocytes % (Manual) (test code = 737-7) 16 19-48 L [facility] DistrictMonocytes % (Manual)2018-05-29 08:54:00* Test Item Value Reference Range Interpretation Comments Monocytes % (Manual) (test code = 744-3) 6 3.4-9.0 [facility] DistrictEosinophils % (Manual)2018-05-29 08:54:00 * Test Item Value Reference Range Interpretation Comments Eosinophils % (Manual) (test code = 714-6) 6 0-7 [facility] DistrictBasophils % (Manual)2018-05-29 08:54:00* Test Item Value Reference Range Interpretation Comments Basophils % (Manual) (test code = 62384-6) 1 0-1.5 [facility] DistrictPlatelet Qytiqswx5272-19-17 08:54:00* Test Item Value Reference Range Interpretation Comments Platelet Estimate (test code = 34088-5) ADEQUATE [facility] DistrictPlatelet Morphology Pbrwzaz0759-66-94 08:54:00* Test Item Value Reference Range Interpretation Comments Platelet Morphology Comment (test code = 22730-8) NORMAL [facility] DistrictHypochromasia2019-01-09 08:54:00* Test Item Value Reference Range Interpretation Comments Hypochromasia (test code = 728-6) SLIGHT [facility] DistrictRed Cell Morphology Rochggb3606-87-56 08:54:00* Test Item Value Reference Range Interpretation Comments Red Cell Morphology Comment (test code = 6742-1) NORMAL [facility] DistrictDifferential Total Cells Counted 2018-05-29 08:54:00* Test Item Value Reference Range Interpretation Comments Differential Total Cells Counted (test code = Differen tial Total Cells Counted) 100 [facility] DistrictNeutrophils % (Manual)2018-05-29 08:54:00 * Test Item Value Reference Range Interpretation Comments Neutrophils % (Manual) (test code = 37437-5) 71 40-74 [facility] DistrictLymphocytes % (Manual)2018-05-29 08:54:00 * Test Item Value Reference Range Interpretation Comments Lymphocytes % (Manual) (test code = 737-7) 16 19-48 L [facility] DistrictMonocytes % (Manual)2018-05-29 08:54:00* Test Item Value Reference Range Interpretation Comments Monocytes % (Manual) (test code = 744-3) 6 3.4-9.0 [facility] DistrictEosinophils % (Manual)2018-05-29 08:54:00 * Test Item Value Reference Range Interpretation Comments Eosinophils % (Manual) (test code = 714-6) 6 0-7 [facility] DistrictBasophils % (Manual)2018-05-29 08:54:00* Test Item Value Reference Range Interpretation Comments Basophils % (Manual) (test code = 18144-4) 1 0-1.5 [facility] DistrictPlatelet Khkloefw7718-76-57 08:54:00* Test Item Value Reference Range Interpretation Comments Platelet Estimate (test code = 40359-4) ADEQUATE [facility] DistrictPlatelet Morphology Trbtmgp1407-10-57 08:54:00* Test Item Value Reference Range Interpretation Comments Platelet Morphology Comment (test code = 18936-9) NORMAL [facility] DistrictHypochromasia2019-01-09 08:54:00* Test Item Value Reference Range Interpretation Comments Hypochromasia (test code = 728-6) SLIGHT [facility] DistrictRed Cell Morphology Jkubagp4351-77-16 08:54:00* Test Item Value Reference Range Interpretation Comments Red Cell Morphology Comment (test code = 6742-1) NORMAL [facility] DistrictB-Type Natriuretic Ettehgq9965-59-95 07:11:00* Test Item Value Reference Range Interpretation Comments B-Type Natriuretic Peptide (test code = 42227-9) 600.5 0-100 H [facility] DistrictCreatine Qovwtq0604-50-00 06:38:00* Test Item Value Reference Range Interpretation Comments Creatine Kinase (test code = 2157-6) 164 29-168 [facility] DistrictCreatine Ruelcq3932-14-43 06:38:00* Test Item Value Reference Range Interpretation Comments Creatine Kinase (test code = 2157-6) 164 29-168 [facility] DistrictThyroid Stimulating Hormone (TSH) 2018-05-27 10:46:00* Test Item Value Reference Range Interpretation Comments Thyroid Stimulating Hormone (TSH) (test code = 08082-7) 1.989 0.350-4.940 [facility] Uljaazi6516-75-60 06:50:00* Test Item Value Reference Range Interpretation Comments Bedside Glucose (test code = 06831-9) 68 70-120 L Meter ID: [id number] Saint [facility] Glucose 2018-05-27 06:50:00* Test Item Value Reference Range Interpretation Comments Bedside Glucose (test code = 36583-7) 68 70-120 L Meter ID: [id number] Memorial Hospital DistrictMRI SPINE THORACIC CHF4558-38-30 01:33:00 [place] [address] Patient Name: KAMI SKINNER MR #: [id number] : 1940 Age/Sex: 77/F Req #: [id number] Adm Physician: NIDA BARNES MD Ordered by: YNENY JAY [employer] Report #: [id number] Location: [facility] Room/Bed: [place] [address] Procedure: [id number] M RI/MRI SPINE THORACIC WOW Exam Date: [...] 05/27/18153 COPY TO: YENNY JAY NP Prothrombin Deia3884-45-17 18:13:00* Test Item Value Reference Range Interpretation Comments Prothrombin Time (test code = 5902-2) 14.0 11.9-14.5 [facility] DistrictProthromb Time International Ratio 2018-05-26 18:13:00* Test Item Value Reference Range Interpretation Comments Prothromb Time International Ratio (test code = 6301-6) 0.99 Oral Anticoagulant Therapy INR Values:1. Low Intensity Therapy 1.5 - 2.02 . Moderate Intensity Therapy 2.0 - 3.03. High Intensity Therapy(1) 2.5 - 3. 54. High Intensity Therapy(2) 3.0 - 4.05. Panic Value INR > 5.0 [facility] DistrictActivated Partial Thromboplast Time 2018-05-26 18:13:00* Test Item Value Reference Range Interpretation Comments Activated Partial Thromboplast Time (test code = 49449-8) 41.7 23.8-35.5 H [facility] DistrictProthrombin Tfoj6092-97-64 18:13:00* Test Item Value Reference Range Interpretation Comments Prothrombin Time (test code = 5902-2) 14.0 11.9-14.5 [facility] DistrictProthromb Time International Ratio 2018-05-26 18:13:00* Test Item Value Reference Range Interpretation Comments Prothromb Time International Ratio (test code = 6301-6) 0.99 Oral Anticoagulant Therapy INR Values:1. Low Intensity Therapy 1.5 - 2.02 . Moderate Intensity Therapy 2.0 - 3.03. High Intensity Therapy(1) 2.5 - 3. 54. High Intensity Therapy(2) 3.0 - 4.05. Panic Value INR > 5.0 [facility] DistrictActivated Partial Thromboplast Time 2018-05-26 18:13:00* Test Item Value Reference Range Interpretation Comments Activated Partial Thromboplast Time (test code = 61873-1) 41.7 23.8-35.5 H [facility] DistrictCreatine Kinase BT0888-11-69 17:35:00* Test Item Value Reference Range Interpretation Comments Creatine Kinase MB (test code = 58160-3) 2.40 0-5.0 [facility] V0943-68-39 17:35:00* Test Item Value Reference Range Interpretation Comments Troponin I (test code = TPY1119) 0.001 0-0.300 [facility] DistrictCreatine Kinase RK7885-94-08 17:35:00* Test Item Value Reference Range Interpretation Comments Creatine Kinase MB (test code = 55862-6) 2.40 0-5.0 [facility]oponin C7366-26-02 17:35:00* Test Item Value Reference Range Interpretation Comments Troponin I (test code = OFR7328) 0.001 0-0.300 [facility] DistrictCT THORACIC SPINE CH8532-37-84 15:53:00 [facility] [address] [place] [address] Patient Name: KAMI SKINNER MR #: [id number] : [birth year] Age/Sex: 77/F Req #: [id number] Adm Physician: NIDA BARNES MD Ordered by: LEELA ATKINSON MD Report #: [id number] Location: [facility] Room/Bed: [place] [address] Procedure: [id number] C T/CT THORACIC SPINE WO Exam Date: [...] TO: LEELA ATKINSON MD PELVIS AP 1-2 OECXG8260-15-54 15:39:00 [place] [address] Patient Name: KAMI SKINNER MR #: [id number] : 1940 Age/Sex: 77/F Req #: [id number] Adm Physician: NIDA BARNES MD Ordered by: LEELA ATKINSON MD Report #: [id number] Location: [facility] Room/Bed: [place] [address] Procedure: [id number] D X/PELVIS AP 1-2 VIEWS Exam Date: 05/26/18 Exam Time: 1508 REPORT STATUS: Signed Pelv is CPT code: 28268 Indication: Fall Technique: Portable AP image of [...] the left hip. Signed by: Dr. Daysi Rayn MD on 05/26/2018 3:42 PM Dictated By: DAYSI RYAN MD 1542 Transcribed By: SHANA on 05/26/18 1542 COPY TO: LEELA TEMPLETON MD CHEST SINGLE (PORTABLE)2018-05-26 15:37:00 [place] [address] Patient Name: KAMI SKINNER MR #: [id number] : 1940 Age/Sex: 77/F Req #: [id number] Adm Physician: NIDA BARNES MD Ordered by: LEELA ATKINSON MD Report #: [id number] Location: [facility] Room/Bed: [place] [address] Procedure: [id number] D X/CHEST SINGLE (PORTABLE) Exam Date: 05/26/18 [...] 3:39 PM Dictated By: DAYSI RYAN MD 153 Transcribed By: SHANA on 1539 COPY TO: LEELA ATKINSON MD CT BRAIN ZF2109-62-06 15:31:00 [place] [address] Patient Name: KAMI SKINNER MR #: [id number] : 1940 Age/Sex: 77/F Req #: [id number] Adm Physician: NIDA BARNES MD Ordered by: LEELA ATKINSON MD Report #: [id number] Location: [facility] Room/Bed: [place] [address] Procedure: [id number] C T/CT BRAIN WO Exam Date: 05/26/18 [...] MD on 05/26/181727 Transcribed By: SHANA on 05/26/181727 COPY TO: LEELA ATKINSON MD CT CERVICAL SPINE RE8488-70-25 15:24:00 [place] [address] Patient Name: KAMI SKINNER MR #: [id number] : 1940 Age/Sex: 77/F Req #: [id number] Adm Physician: NIDA BARNES MD Ordered by: LEELA ATKINSON MD Report #: [id number] Location: [facility] Room/Bed: [place] [address] Procedure: [id number] C T/CT CERVICAL SPINE WO Exam Date: [...] report were reviewed and signed by Dr. Wolfgagn Morales, neuroradiology faculty, on 05/26/2018 at 1730 hours. Signed by: Dr. Wolfgang Morales M.D. on 05/26/2018 5:30 PM Dictated By: ADEEL VILLATORO MD 29 Transcribed By: SHANA on 05/26/180 COPY TO: LEELA YIN MD Urine Fiwqr6793-02-16 13:46:00* Test Item Value Reference Range Interpretation Comments Urine Color (test code = 5778-6) YELLOW YELLOW [facility] DistrictUrine Gnpyadi5273-84-00 13:46:00* Test Item Value Reference Range Interpretation Comments Urine Clarity (test code = 52666-3) HAZY CLEAR [facility] DistrictUrine Specific Pymsmpq7018-21-31 13:46:00 * Test Item Value Reference Range Interpretation Comments Urine Specific [place] (test code = 5811-5) 1.030 1.010-1.02 5 H [facility] DistrictUrine dR8870-74-93 13:46:00* Test Item Value Reference Range Interpretation Comments Urine pH (test code = 11338-1) 5 5-7 [facility] DistrictUrine Leukocyte Ggvyvrsb0068-03-39 13:46:00* Test Item Value Reference Range Interpretation Comments Urine Leukocyte Esterase (test code = 5799-2) NEGATIVE NEGATIVE [facility] DistrictUrine Fumozwx2254-48-58 13:46:00* Test Item Value Reference Range Interpretation Comments Urine Nitrite (test code = 08497-1) NEGATIVE NEGATIVE [facility] DistrictUrine Maoryox6328-94-55 13:46:00* Test Item Value Reference Range Interpretation Comments Urine Protein (test code = 5804-0) NEGATIVE NEGATIVE [facility] DistrictUrine Glucose (UA)2018-05-26 13:46:00* Test Item Value Reference Range Interpretation Comments Urine Glucose (UA) (test code = 2349-9) NEGATIVE NEGATIVE [facility] [id number] 13:46:00* Test Item Value Reference Range Interpretation Comments Urine Ketones (test code = 47388-8) NEGATIVE NEGATIVE [facility] [id number] 13:46:00* Test Item Value Reference Range Interpretation Comments Urine Urobilinogen (test code = 04484-9) 0.2 0.2-1 [facility] [id number] 13:46:00* Test Item Value Reference Range Interpretation Comments Urine Bilirubin (test code = 1978-6) NEGATIVE NEGATIVE [facility] [id number] 13:46:00* Test Item Value Reference Range Interpretation Comments Urine Blood (test code = 77483-2) NEGATIVE NEGATIVE [facility] [id number] 13:46:00* Test Item Value Reference Range Interpretation Comments Urine WBC (test code = 5821-4) 6-10 0-5 H [facility] [id number] 13:46:00* Test Item Value Reference Range Interpretation Comments Urine RBC (test code = 23599-3) 0-5 0-5 [facility] [id number] 13:46:00* Test Item Value Reference Range Interpretation Comments Urine Bacteria (test code = 42665-4) FEW NONE [facility] Epithelial [id number] 13:46:00 * Test Item Value Reference Range Interpretation Comments Urine Epithelial Cells (test code = 51065-5) FEW NONE [facility] THREE [id number] 13:07:00 [facility] [address] [address] Patient Name: KAMI SKINNER MR #: [id number] : [birth year] Age/Sex: 77/F Req #: [id number] Adm Physician: Ordered by: YENNY JAY NP Report #: [id number] Location: ER Room/Bed: Procedure: [id number] DX/ KNEE LEFT THREE VIEWS Exam Date: 05/26/18 Exam Time: 1218 REPORT STATUS: Signed Left complete knee. CPT CODE: 65184. INDICATION: Fall COMPARISON: Non e FINDINGS: The [...] PM D ictated By: DAYSI RYAN MD 131 Transcribed By: SAHNA on 05/26/18 1311 COPY TO: YENNY THIBODEAUX ACE, NP SP LUMBAR, COMPLETE MIN [id number] 13:01:[address] [address] Patient Name: KAMI SKINNER MR #: [id number] : 1940 Age/Sex: 77/F Req #: [id number] Adm Physician: Ordered by: YENNY JAY NP Report #: [id number] Location: ER Room/Bed: Procedure: [id number] DX/ SP LUMBAR, COMPLETE MIN 4VW Exam Date: 05/26/18 Exam Time: 1218 REPORT STATUS: Signed Lumbar spine two views CPT code: 75480 Indication: Fall 2 days ago, back pain Technique: A.P. and lateral views of the lumbar spine obtained Comparison: Thoracic spine x-rays obtained at the same time. A CT of the a bdomen/pelvis performed in 2016 is not available for review. Findings: The [...] 1:07 PM Dictated By: DAYSI RYAN MD 1307 Transcribed B y: SHANA on 05/26/18 1307 COPY TO: YENNY JAY NP THORACIC SPINE [id number] 12:57:[address] [address] Patient Name: KAMI SKINNER MR #: [id number] : 1940 Age/Sex: 77/F Req #: [id number] Adm Physician: Ordered by: YENNY JAY [employer] Report #: [id number] Location: ER Room/Bed: Procedure: [id number] DX/ THORACIC SPINE 2VW Exam Date: 05/26/18 Exam Time: 05 07 REPORT STATUS: Signed Thoraci c spine complete CPT code: 93360 Indication: Fall 2 days ago, back jessica [...] RYAN MD 1301 COPY TO: YENNY JAY [employer] URINALYSIS W/ [id number] 02:46:00* Test Item Value Reference Range Interpretation [...] SOURCE(BEAKER) (test code = 2795) Urine, Voided [id number] 19:48:00* Test Item Value Reference Range Interpretation Comments PHOSPHORUS (BEAKER) (test code = 604) 3.1 mg/dL 2.3-4.7 [id number] 19:48:00* Test Item Value Reference Range Interpretation Comments MAGNESIUM (BEAKER) (test code = 627) 1.9 mg/dL 1.6-2.6 BASIC METABOLIC [id number] 19:48:00* Test Item Value Reference Range Interpretation [...] DIALYSIS PATIENTS. CBC W/PLT COUNT & AUTO [id number] 19:43:00* Test Item Value Reference Range Interpretation [...] 417) 0.04 K/ L 0. 00-0.20 0.00URINE [id number] 12:34:00* Test Item Value Reference Range Interpretation Comments CULTURE (BEAKER) (test code = 1095) No growth BASIC METABOLIC [id number] 07:07:00* Test Item Value Reference Range Interpretation [...] CLINICAL DATA TO CALCULATE ESTIMATED GFR. POCT-GLUCOSE [id number] 13:13:00* Test Item Value Reference Range Interpretation Comments POC-GLUCOSE METER (BEAKER) (test code = 1538) 90 mg/dL 70-[address] [facility] [address] [facility] [address] CBC W/PLT COUNT & AUTO [id number] 05:53:00* Test Item Value Reference Range Interpretation [...] 0.02 K/ L 0. 00-0.20 0.00BASI METABOLIC [id number] 05:25:00* Test Item Value Reference Range Interpretation [...] INSUFFICIENT CLINICAL DATA TO CALCULATE ESTIMATED GFR. [id number] 05:22:00* Test Item Value Reference Range Interpretation Comments MAGNESIUM (BEAKER) (test code = 627) 1.6 mg/dL 1.6-2.6 Specimen slightly hemolyzed [id number] 05:22:00* Test Item Value Reference Range Interpretation Comments PHOSPHORUS (BEAKER) (test code = 604) 3.1 mg/dL 2.3-4.7 Specimen slightly hemolyzed URINALYSIS W/ [id number] 19:25:00* Test Item Value Reference Range Interpretation [...] = 1574) Rare SOURCE(BEAKER) (test code = 6155) Urine, Agrawal
--- OUTSIDE RECORDS SUMMARY | 2019-10-30 16:06 | XMS REPORT | Clinical Summary ---
Author Author KENAN [facility] Address Unknown Phone Unavailable Care Team Providers Care Tree Driller Name Role Phone Sharpless PCP Allergies Comments [...] CROSS/BLUE SHIELD BCBS xxxxxxxxxxxx PPO [address] [place] [address] [place] Advance Directives For more information, please contact: [id number] [place] [address] Date Inactivated Comments Code Status Date Activated 09/05/2016 7:12 PM Full Code 09/03/2016 5:09 PM This code status was determined by: Patient
[2019-10-30 16:37] LABS: BASOPHILS % 0.8 % (0.0-1.0); EOSINOPHILS % 0.8 % (0.0-6.0); HEMATOCRIT 29.1 % (34.2-44.1); HEMOGLOBIN 9.7 g/dL (12.0-16.0); LYMPHOCYTES # (AUTO) 1.1 (1.0-3.2); LYMPHOCYTES % 27.3 % (18.0-39.1); MEAN CORPUSCULAR HEMOGLOBIN 29.9 pg (28-32); MEAN CORPUSCULAR HGB CONC 33.3 g/dL (31-35); MEAN CORPUSCULAR VOLUME 89.8 fL (81-99); MONOCYTES # (AUTO) 0.6 (0.2-0.8); MONOCYTES % 16.2 % (4.4-11.3); NEUTROPHILS # (AUTO) 2.2 (2.1-6.9); NEUTROPHILS % 54.4 % (38.7-80.0); RED BLOOD COUNT 3.24 x10e6/uL (3.6-5.1)
[2019-10-30 16:41] LABS: CLARITY,URINE SL CLOUDY (CLEAR); COLOR,URINE BROWN (YELLOW); LEUKOCYTE ESTERASE ,URINE NEGATIVE (NEGATIVE); NITRITE,URINE POSITIVE (NEGATIVE); PROTEIN,URINE DIPSTICK >=300 (NEGATIVE)
[2019-10-30 16:42] LABS: BILIRUBIN,URINE MODERATE (NEGATIVE); KETONES,URINE NEGATIVE (NEGATIVE); URINE UROBILINOGEN 1 mg/dL (0.2 - 1)
[2019-10-30 16:53] LABS: AMORPHOUS SEDIMENT,URINE FEW (FEW); BACTERIA,URINE MODERATE /HPF; EPITHELIAL CELLS,URINE FEW /LPF; HYALINE CASTS 0-1 (0-1)
[2019-10-30 17:02] LABS: CREATINE KINASE MB 2.5 ng/mL (0-5.0)
[2019-10-30 17:08] LABS: PLATELET COUNT 7 x10e3/uL (140-360)
[2019-10-30 17:23] LABS: PLATELET ESTIMATE MARKEDLY DECREASED; PLATELET MORPHOLOGY COMMENT NORMAL; RBC MORPHOLOGY COMMENT NORMAL
[2019-10-30] MEDS ORDERED: CEFTRIAXONE SOD 1 GM/NS 50 ML 50 ML IV SCH (17:45)
--- NOTE | 2019-10-30 18:20 | NUR ---
received patient from ER via wheelchair, pt needs assistance ambulating from wheelchair to bed. pt is alert, forgetful and poor historian. no s/s of distress noted. pt was oriented to room, call light within reach and instructed pt to call RN for help. bed alarm was activated
--- NOTE | 2019-10-30 18:34 | History and Physical ---
CHIEF COMPLAINT: "I woke up this morning and there were red dots on my legs." HISTORY OF PRESENT ILLNESS: This is a 79-year-old white woman, who was brought to [facility] by emergency medical services because of altered mentation. The patient states that when she woke up this morning, her legs had red bruise like blemishes. The patient also states that for the past 2 days, she has had right-sided chest pain. Moreover, she states two days ago, she had diarrhea. The patient denies any UTI symptoms. The patient states she has felt very weak in last 2 days. 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 In the emergency room on this admission, the patient was found to have white blood cell count of 4600 with 65% segmented neutrophils. Hemoglobin is 10.4 g/dL. Platelet count is 10,000. The patient's BUN and creatinine were 33 and 1.41 respectively. Serum bicarbonate is 20, potassium 4.4, and sodium 136. The patient's B-type natriuretic peptide level was 133. The patient's AST and ALT were 89 and 27 respectively. The patient's total bilirubin was 2.0. The patient's troponin I was 0.529. A 12-lead EKG performed in the emergency room did not reveal any acute ischemic changes. The patient underwent a chest film in the emergency room that revealed mild cardiomegaly, otherwise unremarkable. The patient underwent a CT of the head in the emergency room without contrast did not reveal any acute intracranial abnormality other than generalized cerebral volume loss. Definitely, no intracerebral hemorrhaging were appreciated. The patient was admitted for further evaluation and treatment. REVIEW OF SYSTEMS: GENERAL: Weight has been stable. No fever or chills, slightly confused for the last day according to adult son. HEENT: No headaches. No visual changes. CARDIOVASCULAR: The patient states for past 2 days, she has had right-sided chest discomfort. GI: No nausea, vomiting, but she has had diarrhea in the past couple of days. She also complains of slight abdominal discomfort in the periumbilical area for 2 days. Denies any melena or hematochezia. : Denies any UTI symptoms, but states at times, difficult for her to urinate. The patient states she does urinate frequently throughout the day. The patient denies any dark or malodor urine. NEUROMUSCULAR: Complains generalized weakness. 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 ALLERGIES: 1. HEPARIN. 2. SULFA ANTIBIOTICS. 3. DIAZEPAM. 4. KEPPRA. 5. METHOTREXATE. 6. MORPHINE. PAST MEDICAL HISTORY: 1. Chronic diastolic congestive heart failure. 2. Hypertensive heart disease. 3. Paroxysmal atrial fibrillation. 4. Anxiety disorder. 5. Seizure disorder. 6. Dermatopolymyositis. 7. Anemia secondary to chronic disease. 8. Mild cognitive impairment. 9. Major depressive disorder. 10. Hypothyroidism. 11. Osteoporosis. 12. Peripheral neuropathy. PAST SURGICAL HISTORY: 1. 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 2. Total abdominal hysterectomy. 3. Cholecystectomy. FAMILY HISTORY: Multiple members with hypertension. The patient's daughter has systemic lupus erythematosus. SOCIAL HISTORY: This woman is a and currently lives at home but has an adult son that checks on her daily. The patient has no history of tobacco or alcohol use. HOME MEDICATIONS: 1. Furosemide 20 mg b.i.d. 2. Aspirin 81 mg daily. 3. Hydrocodone/acetaminophen 5/325 one every 6 hours p.r.n. pain. 4. Librium 10 mg daily. 5. Lorazepam 1 mg at bedtime p.r.n. insomnia/anxiety. 6. IVIG every month for her dermatopolymyositis. PHYSICAL EXAMINATION: GENERAL: She is awake, alert. Her mental status seems to be at baseline. She does not seem to be in distress at this time. She is oriented to self, time, and place. She does however get confused easily. VITAL SIGNS: Height 5 feet 7 inches, weight is 160 pounds, BMI 25. Blood pressure is 156/90, pulse 78, respiratory rate 16, oxygen 100% on room air, temperature 97.4. INTEGUMENT: Skin is warm and dry. I appreciate slight pallor. The patient does have distinctive erythematous rash throughout her body consistent with her dermatomyositis. HEENT: Anicteric sclerae. Moist mucous membranes. She is edentulous. NECK: Supple. CARDIOVASCULAR: Distant heart sounds. Regular rhythm with S3, gallop. She has a faint systolic ejection murmur. LUNGS: No rales, no rhonchi. Wheezing is benign. ABDOMEN: Normal bowel sounds, nontender. EXTREMITIES: Trace edema in bilateral legs. INTEGUMENT: The patient does have petechiae on her bilateral lower legs. NEUROLOGIC: No gross focal deficits appreciated. She does have global weakness. DIAGNOSES: 1. Thrombocytopenia. 2. Urinary tract infection, likely. 3. Acute diastolic heart failure. 4. Pancytopenia. 5. Acute renal insufficiency. 6. Dermatopolymyositis. 7. Atypical chest pain. PLAN: 1. We will honor the patient's DNR status. 2. Rule out myocardial infarction. 3. Recheck platelet count. 4. We will likely consult Hematology if the patient truly is profoundly thrombocytopenic. 5. We will follow renal function and electrolytes. 6. We will send urine for urinalysis and culture. 7. We will discontinue aspirin since the patient is presenting with profound thrombocytopenia. 8. Gentle intravenous fluids. I spent 45 minutes in the care of this patient. MD DWAYNE Cyr/ASHLEY /[id number] MTDD
--- NOTE | 2019-10-30 19:15 | NUR ---
Received patient awake, not in distress, call light within easy reach, bed alarm activated, no active bleeding noted. Will continue to monitor patient closely
[2019-10-30 20:00] VITALS: BP 141/87
[2019-10-30 21:00] VITALS: BP 141/87
[2019-10-30] MEDS ORDERED: METHYLPREDNISOLONE SOD SUCC 125 MG/2ML VIAL IV SCH ×2 (21:00→22:49)
[2019-10-30] MEDS: SODIUM CHLORIDE 0.9% 1000ML 1,000 ML IV SCH (21:06)
[2019-10-30] MEDS: SODIUM CHLORIDE 0.9% IV SCH (23:12)
[2019-10-30] MEDS: METHYLPREDNISOLONE SOD SUCC IV SCH (23:12)
[2019-10-30] MEDS ORDERED: SODIUM CHLORIDE 0.9% 100 ML ONE (23:14)
[2019-10-31] VITALS (8 sets, daily range): BP systolic 141–170; BP diastolic 78–93
--- NOTE | 2019-10-31 00:25 | NUR ---
spoke to lab c/o Diana Tello, platelet pheresis is not available yet, the ict project manager needs to resolve some issues, it may be available after 7AM per lab
[2019-10-31] MEDS: SODIUM CHLORIDE 0.9% 1000ML 1,000 ML IV SCH (02:30)
--- NOTE | 2019-10-31 03:12 | NUR ---
SPOKE TO HEAVY EQUIPMENT SERVICE MANAGER WHO IS GOING TO COME IN AND VERIFY PLATELETS TO SEE IF THEY MAY BE RELEASED. CNO/AOC AWARE. PM CHARGE AWARE. PM NURSE TO BE MADE AWARE BY PM CHG.
[2019-10-31 06:02] LABS: BASOPHILS % 0.3 % (0.0-1.0); EOSINOPHILS % 0.3 % (0.0-6.0); HEMATOCRIT 28.4 % (34.2-44.1); HEMOGLOBIN 9.3 g/dL (12.0-16.0); LYMPHOCYTES # (AUTO) 0.6 (1.0-3.2); LYMPHOCYTES % 18.5 % (18.0-39.1); MEAN CORPUSCULAR HEMOGLOBIN 29.2 pg (28-32); MEAN CORPUSCULAR HGB CONC 32.7 g/dL (31-35); MONOCYTES # (AUTO) 0.1 (0.2-0.8); MONOCYTES % 3.3 % (4.4-11.3); NEUTROPHILS # (AUTO) 2.5 (2.1-6.9); RED BLOOD COUNT 3.19 x10e6/uL (3.6-5.1); RED CELL DISTRIBUTION WIDTH 17.4 % (11.7-14.4)
[2019-10-31 06:28] LABS: PLATELET COUNT 7 x10e3/uL (140-360)
--- NOTE | 2019-10-31 06:28 | NUR ---
received call from the lab, platelet pheresis is available for milk pickup driver, will communicate with the incoming dayshift RN, charge nurse and House Sup informed
--- NOTE | 2019-10-31 06:31 | NUR ---
received call from the lab, platelet count is 7. patient ids for platelet transfusion. no signs of acute bleeding noted, will continue to monitor closely
[2019-10-31 06:48] LABS: ALBUMIN 3.2 g/dL (3.5-5.0); ALBUMIN/GLOBULIN RATIO 0.6 (0.8-2.0); ANION GAP 16.2 mmol/L (8-16); CALCIUM 8.4 mg/dL (8.4-10.2); CREATININE, SERUM 1.31 mg/dL (0.57-1.11); POTASSIUM 4.2 mmol/L (3.5-5.1)
--- NOTE | 2019-10-31 07:06 | NUR ---
Received patient lying in bed with eyes open. Respiration even and unlabored without SOB. Call light in reach.
[2019-10-31 07:08] LABS: CREATINE KINASE MB 3.9 ng/mL (0-5.0)
--- NOTE | 2019-10-31 07:27 | NUR ---
walking rounds done with ap RN, call light within easy reach
[2019-10-31 07:43] LABS: CHOL/HDL RATIO 8.1 (3.0-3.6)
[2019-10-31] MEDS ORDERED: SODIUM CHLORIDE 0.9% 250ML 250 ML ONE (07:53)
--- NOTE | 2019-10-31 07:55 | NUR ---
Platelet transfusion started as ordered and verified by another RN . VS stables. Respiration even and unlabored without SOB. Denies discomfort and SOB.
--- NOTE | 2019-10-31 08:10 | NUR ---
Platelet still currently infusing. Denies chest discomfort. Denies SOB. VS stable.
--- NOTE | 2019-10-31 09:00 | NUR ---
End of platelet transfusion. VS stable. Respiration even and unlabored without SOB. Denies chest discomfort. Call light in reach.
[2019-10-31] MEDS: CEFTRIAXONE SOD 1 GM/NS 50 ML 50 ML IV SCH ×2 (10:32→21:00)
--- NOTE | 2019-10-31 10:43 | NUR ---
OBTAINED PERMISSION FROM SON DEBORAH FOR [facility] WILL MEET SUNDAY TO GO HOME ON HOSPICE. FAXED CLINICALS.
[2019-10-31] MEDS: SODIUM CHLORIDE 0.9% IV SCH ×2 (11:03→21:58)
[2019-10-31] MEDS: METHYLPREDNISOLONE SOD SUCC IV SCH ×2 (11:03→21:58)
[2019-10-31 11:18] LABS: PLATELET ESTIMATE MARKEDLY DECREASED; RBC MORPHOLOGY COMMENT NORMAL
[2019-10-31 11:20] LABS: PLATELET MORPHOLOGY COMMENT NORMAL
[2019-10-31 11:42] LABS: HEMATOCRIT 29.5 % (34.2-44.1); HEMOGLOBIN 9.5 g/dL (12.0-16.0); LYMPHOCYTES # (AUTO) 0.7 (1.0-3.2); LYMPHOCYTES % 24.4 % (18.0-39.1); MEAN CORPUSCULAR HGB CONC 32.2 g/dL (31-35); MEAN CORPUSCULAR VOLUME 93.1 fL (81-99); MONOCYTES # (AUTO) 0.1 (0.2-0.8); MONOCYTES % 4.8 % (4.4-11.3); NEUTROPHILS # (AUTO) 1.9 (2.1-6.9); NEUTROPHILS % 70.4 % (38.7-80.0); RED BLOOD COUNT 3.17 x10e6/uL (3.6-5.1); RED CELL DISTRIBUTION WIDTH 18.1 % (11.7-14.4)
[2019-10-31 12:06] LABS: PLATELET COUNT 26 x10e3/uL (140-360)
--- NOTE | 2019-10-31 12:48 | Progress Note ---
DATE: 10/31/2019 CHIEF COMPLAINT/HISTORY OF PRESENT ILLNESS: This is a 79-year-old white woman, whose primary diagnosis is sepsis secondary urinary tract infection, profound thrombocytopenia and dnn-NU-bvnzogam myocardial infarction. The patient states her chest pain has resolved. She does note slight shortness of breath. The patient's platelet count this morning was 7000. The patient was just transfused intravenous platelets this morning. The patient's BUN and creatinine today were 40 and 1.31 respectively. The patient's repeat troponin I this morning is 1.225, which is increasing. The patient's triglyceride level 168 mg/dL. LDL cholesterol is 122 mg/dL. The patient white blood cell count today is 3200 with 77% segmented neutrophils. The patient's hemoglobin is 9.3 g/dL. REVIEW OF SYSTEMS: As per HPI. PHYSICAL EXAMINATION: GENERAL: She is awake. She is alert. She gets confused easily. She is oriented to self only. VITAL SIGNS: Height is 5 feet 7 inches, weight is 170 lbs. Vitals: Blood pressure is 140/80, pulse 74, respiratory rate 18, temperature is 97.9, oxygen saturation is 94% on room air. INTEGUMENT: Skin is warm and dry. Slight pallor. No jaundice or diaphoresis. The patient does have a widespread erythematous rash consistent with dermatopolymyositis HEENT: Anicteric sclerae. Moist mucous membranes. The patient has dentures. NECK: Supple. No evidence of jugular venous distention. CARDIOVASCULAR: Distant heart sounds. Regular rate and rhythm with an S3 gallop. LUNGS: No rales, no rhonchi, or wheezes. ABDOMEN: Benign. EXTREMITIES: Trace edema in legs. NEUROLOGIC: Intact. No gross focal deficits appreciated. DIAGNOSES: 1. Profound thrombocytopenia. 2. Pancytopenia. 3. Urinary tract infection. 4. Bhk-OS-wqtegyqv myocardial infarction. 5. Dermatopolymyositis. 6. Acute on chronic diastolic congestive heart failure. 7. Hypertensive heart disease. 8. Paroxysmal atrial fibrillation. 9. Seizure disorder. 10. Stage 3 chronic kidney disease. PLAN: 1. Restart lorazepam 1 mg t.i.d. since the patient does have a history of seizures and this medication is very helpful in preventing recurrent seizures in this patient. 2. We will stop intravenous fluids. 3. I discussed the case with her cattle rancher, namely Dr. Leong, who states the patient may have underlying malignancy. 4. I did speak at length the patient's adult son, namely Mr. Ralph Rodriguez. We discussed the patient's poor overall prognosis and end of life issues. 5. I did inform the adult son, the patient could have an underlying malignancy such as myelodysplastic syndrome, but she is not in any clinical condition to undergo invasive procedures such as bone marrow biopsy. 6. I did discuss the case with Cardiology in regard to possibly proceeding with left heart catheterization, but with her profound thrombocytopenia and her poor overall performance status, this aggressive invasive diagnostic modality likely would not be pursued. 7. We will continue intravenous ceftriaxone for the patient's urinary tract infection. 8. We will follow urine culture. 9. We will follow the patient's complete blood count, particularly since she received transfusion of platelets early this morning. 10. We will honor patient's do not resuscitate code status. 11. We will likely refer patient to home hospice care on Sunday November 03, 2019. I spent 45 minutes in the care of this patient. MD DWAYNE Cyr/ASHLEY /[id number] MTDD
[2019-10-31] MEDS: LORAZEPAM 1 MG TAB PO SCH ×2 (14:11→21:32)
--- NOTE | 2019-10-31 19:41 | NUR ---
RECEIVED PT IN BED AOX2 .FORGETFUL RESPIRATIONS ARE EVEN AND UNLABORED LOWER EXTREMITIES ARE BRUISED .DENIES PAIN .CALL LIGHT WITH IN REACH .CONTINUE TO MONITOR.
[2019-11-01] VITALS (9 sets, daily range): BP systolic 119–157; BP diastolic 67–97
--- NOTE | 2019-11-01 03:46 | Consultation ---
DATE OF CONSULTATION: 10/31/2019 Cardiology Consult Note REASON FOR CONSULT: Elevated troponin. CHIEF COMPLAINT: Cannot be obtained due to altered mental status. HISTORY OF PRESENT ILLNESS: The patient is a 79-year-old female with history of dementia and pancytopenia, who was brought in from a shelter due to altered mental status. We are consulted due to elevated troponin. All history is obtained from medical records. The patient is not able to answer questions due to her dementia. PAST MEDICAL HISTORY: 1. Chronic diastolic CHF. 2. Hypertension. 3. Dementia. SOCIAL HISTORY: Could not be obtained. FAMILY HISTORY: Could not be obtained. REVIEW OF SYSTEMS: Unable to obtain due to altered mental status and dementia. OUTPATIENT MEDICATIONS: Reviewed. ALLERGIES: PLEASE SEE ELECTRONIC MEDICAL RECORD. THE PATIENT IS ALLERGIC TO SEVERAL DIFFERENT MEDICATIONS INCLUDING HEPARIN, SULFA, DIAZEPAM, KEPPRA, METHOTREXATE, AND MORPHINE. OBJECTIVE: VITAL SIGNS: Temperature afebrile, pulse 73, respiratory rate 18, blood pressure 141/87, saturating 100% on room air. GENERAL: Elderly female, in no acute distress. CARDIOVASCULAR: Regular rate and rhythm. No murmurs, rubs, or gallops. LUNGS: Clear to auscultation anteriorly. ABDOMEN: Soft, nontender, and nondistended. NEURO AND PSYCH: Disoriented. INPATIENT MEDICATIONS: Reviewed. LABORATORY DATA: Reviewed. Notable for platelet count of 7, hemoglobin 9.7, WBC count of 3.9, troponin elevated at 1.22 with elevated CK of 290 and a normal CK-MB. TELEMETRY DATA: Reviewed, shows normal sinus rhythm. ASSESSMENT: 1. Elevated troponin. 2. Pztvh-pq-xpwaxtc diastolic congestive heart failure. PLAN: The patient is severely pancytopenic, also has dementia and is DNR/DNI, ongoing discussions regarding hospice, not a candidate for any further intervention or anticoagulation. Continuing antihypertensive medicines with intermittent diuretics as needed. Echocardiogram was reviewed, shows normal LVEF with poor diastolic function. No further cardiovascular treatment or intervention needed at this time. Thank you for this consult. We will continue to follow. MD FALLON Bearden/BIANCAL /[id number]
--- NOTE | 2019-11-01 07:06 | NUR ---
BEDSIDE REPORT GIVEN TO THE ONCOMING NURSE
[2019-11-01] MEDS: CEFTRIAXONE SOD 1 GM/NS 50 ML 50 ML IV SCH ×2 (08:43→21:51)
[2019-11-01] MEDS: LORAZEPAM 1 MG TAB PO SCH ×3 (08:44→21:00)
[2019-11-01] MEDS: CHLORDIAZEPOXIDE HCL 10 MG CAP PO SCH (08:44)
[2019-11-01] MEDS: METHYLPREDNISOLONE SOD SUCC IV SCH ×2 (10:30→21:00)
[2019-11-01] MEDS: SODIUM CHLORIDE 0.9% IV SCH ×2 (10:30→21:00)
--- NOTE | 2019-11-01 19:03 | NUR ---
Report given to night nurse. Awake, lying in bed with Respiration even and unlabored without SOB. Call light in reach.
--- NOTE | 2019-11-01 19:29 | Progress Note ---
DATE: 11/01/2019 Cardiology Progress Note SUBJECTIVE: The patient denies chest pain or shortness of breath. OBJECTIVE: VITAL SIGNS: Temperature 97.9 degrees, pulse 66, respiratory rate is 18, blood pressure 120/72, and oxygen saturation 97% on room air. GENERAL: Elderly woman, in no acute distress. Awake, alert. LUNGS: Clear to auscultation bilaterally. No wheezes or crackles. CARDIOVASCULAR: Normal rate, regular rhythm. No murmur. Normal S1, S2. ABDOMEN: Soft. Nontender. EXTREMITIES: No edema. CARDIAC MEDICATIONS: None. LABORATORY DATA: None today. IMPRESSION: 1. Elevated troponin. 2. Bpjxy-xm-dqxdyss diastolic heart failure. 3. Pancytopenia. RECOMMENDATIONS: The patient is severely pancytopenic. She is currently having ongoing discussions regarding hospice. She is not a candidate for any further intervention or anticoagulation. Continue IV diuretics to keep net even. Blood pressure is borderline for her age. We will monitor. Low-sodium diet and fluid restriction. No further cardiac evaluation is indicated at this time. Echocardiogram is normal LV systolic function with diastolic filling pattern normal for age of the patient. No further cardiac evaluation is indicated at this time. Thank you for this consult. We will continue to follow. Krys Savage MD ABS/MODL /[id number]
--- NOTE | 2019-11-01 19:38 | NUR ---
RECEIVED PT IN BED AOX2 .NO ACUTE DISTRESS NOTED .CALL LIGHT WITH IN REACH .CONTINUE TO MONITOR
[2019-11-02] VITALS (7 sets, daily range): BP systolic 122–155; BP diastolic 63–112
--- NOTE | 2019-11-02 05:01 | NUR ---
PT RESTED DURING THE NIGHT .DENIES PAIN CALL LIGHT WITH IN REACH .CONTINUE TO MONITOR
--- NOTE | 2019-11-02 07:04 | NUR ---
Received patient lying in bed with eyes open. Respiration even and unlabored without SOB. Call light in reach.
--- NOTE | 2019-11-02 07:20 | NUR ---
BEDSIDE REPORT GIVEN TO THE ONCOMING NURSE
[2019-11-02] MEDS: CEFTRIAXONE SOD 1 GM/NS 50 ML 50 ML IV SCH ×2 (08:29→21:00)
[2019-11-02] MEDS: LORAZEPAM 1 MG TAB PO SCH ×3 (08:30→20:48)
[2019-11-02] MEDS: CHLORDIAZEPOXIDE HCL 10 MG CAP PO SCH (08:30)
[2019-11-02] MEDS: SODIUM CHLORIDE 0.9% IV SCH ×2 (10:00→21:15)
[2019-11-02] MEDS: METHYLPREDNISOLONE SOD SUCC IV SCH ×2 (10:00→21:15)
--- NOTE | 2019-11-02 15:53 | Progress Note ---
DATE: 11/02/2019 Cardiology Progress Note SUBJECTIVE: The patient denies chest pain or shortness of breath. OBJECTIVE: VITAL SIGNS: Temperature 97.6 degrees, pulse 60, respiratory rate 18, blood pressure 122/76, and oxygen saturation 97% on room air. GENERAL: Elderly woman, in no acute distress. Awake and alert. LUNGS: Clear to auscultation bilaterally. No wheezes or crackles. CARDIOVASCULAR: Normal rate. Regular rhythm. No murmur. Normal S1 and S2. ABDOMEN: Soft and nontender. EXTREMITIES: No edema. CARDIAC MEDICATIONS: None. LABORATORY DATA: None today. IMPRESSION: 1. Elevated troponin. 2. Lvpbh-ps-vpkhglb diastolic heart failure. 3. Pancytopenia. RECOMMENDATIONS: The patient is severely thrombocytopenic. She is therefore not a candidate for any antiplatelet therapy or anticoagulation. Thus, she is not a candidate for invasive cardiac intervention. Would recommend starting the patient on statin therapy with atorvastatin 40 mg p.o. daily with goal to keep LDL less than 70. Echocardiogram demonstrated normal LV systolic function with diastolic filling pattern normal for the age of the patient. Monitor volume status closely. Thank you for this consult. We will continue to follow. Krys Savage MD ABS/MODL /[id number]
--- NOTE | 2019-11-02 19:28 | NUR ---
RECEIVED PT IN BED AOX2 . FORGET FUL NO ACUTE DISTRESS NOTED .CALL LIGHT WITH IN REACH .CONTINUE TO MONITOR
[2019-11-03] VITALS: BP 138/91
[2019-11-03 04:00] VITALS: BP 112/83
--- NOTE | 2019-11-03 05:11 | NUR ---
PT RESTED DURING THE NIGHT .DENIES PAIN CALL LIGHT WITH IN REACH .CONTINUE TO MONITOR
--- NOTE | 2019-11-03 05:28 | NUR ---
RAPID RESPONSE CALLED, DR SMITH IN TO SEE PATIENT. CMP, CBC, BNP, CHEST XRAY, DUP NEB ORDERED. HR 38, BP 115/88, SPO2 74%.
[2019-11-03] MEDS ORDERED: ALBUTEROL/IPRATROPIUM 3 ML NEB NEB STA (05:31)
--- NOTE | 2019-11-03 05:40 | NUR ---
SPOKE TO DR. Kendrick BARNES REGARDING CHANGE OF CONDITION. NO NEW ORDERS RECEIVED.
--- NOTE | 2019-11-03 05:42 | NUR ---
O530 AM /PT CONDITION CHANGED AND PT HAD RESPIRATORY DISTRESS AND UNRESPONSIVE, RAPID CALLED .PT IS DNR RAPID RESPONSE TEAM ORDERED LAB CBC ,BMP ,BNP AND CHEST XRAY BP 115/88,HR 38 AND O2 STAT 74 .% STARTED 02 .NOTIFIED CAMERON CRAIG FOR DR LOPEZ . CALLED SON DEBORAH [phone] NO ANSWER .PUT THE MESSAGE .
--- NOTE | 2019-11-03 06:12 | NUR ---
6AM PT AND ER DOCTOR PRONOUNCED . NOTIFIED SON DEBORAH AT 0622 AM
--- NOTE | 2019-11-03 09:01 | NUR ---
Dictated DC summary: [id number]
--- NOTE | 2019-11-03 09:41 | Discharge Summary ---
DATE OF : The patient on 11/03/2019. ADMIT DIAGNOSES: 1. Profound thrombocytopenia. 2. Urinary tract infection. 3. Acute on chronic diastolic congestive heart failure. 4. Pancytopenia. 5. Acute renal insufficiency secondary to acute tubular necrosis. 6. Dermatopolymyositis. 7. Atypical chest pain. DIAGNOSES ON THE DAY PATIENT : 1. Cardiac arrest secondary to non-ST elevated myocardial infarction. 2. Acute on chronic diastolic congestive heart failure. 3. Profound thrombocytopenia. 4. Pancytopenia. 5. Urinary tract infection. 6. Hypertensive heart disease. 7. Paroxysmal atrial fibrillation. 8. Dermatopolymyositis. 9. Seizure disorder. 10. Stage 3 chronic kidney disease. HOSPITAL COURSE: This is a 79-year-old white woman, who was initially admitted to [facility] with diagnoses of profound thrombocytopenia and urinary tract infection. During this hospitalization, she was actually diagnosed with acute on chronic diastolic congestive heart failure as well as non-ST elevated myocardial infarction. She was also found to have acute on chronic renal failure during this hospitalization. The patient was seen by Cardiology, but the decision was made not to proceed with invasive diagnostic modalities such as left heart catheterization. The patient was also diagnosed with urinary tract infection during this hospital stay and was started on intravenous ceftriaxone, which she tolerated well. The patient was seen by a cook boat, namely Dr. Lauren Leong, because of the patient's profound thrombocytopenia. On admission, the patient's platelet count was 10,000 and then later dropped to 7000. The patient was transfused platelets during this hospitalization and it did increase to 26,000. The patient never improved clinically. As previously stated, she was diagnosed with non-ST elevated myocardial infarction during this hospitalization. The patient was made a do not resuscitate code status by her adult son, who was her medical power of workers compensation defense attorney, namely Mr. Ralph Rodriguez. Moreover, the idea of palliative treatment in the form of home hospice care was discussed with the adult son. In fact, the plan was to proceed with home hospice care on Sunday, November 03, 2019. However, the adult son had also entertained the idea of possibly pursuing a custodial facility transfer initially and then later transitioning to home hospice care. Anyhow, the patient went into acute respiratory distress at 05:30 on Sunday, November 03, 2019. The patient was hypoxic and minimally responsive. The patient's do not resuscitate code status was observed during this period of respiratory distress. She was evaluated by the emergency room physician and placed on supplemental oxygen. The patient was found to be apneic, pulseless and unresponsive by the emergency room physician. Thus, she was pronounced at 0600 on November 03, 2019. The adult son, Mr. Ralph Rodriguez, was notified over the phone as well as the attending physician, namely myself, , Dr. Tony Patterson. MD DWAYNE yCr/BIANCAL /[id number] MTDD
== END 2019-11-03 06:00 | disposition expired ==
LOC: ER 11:48 → ERHOLD 15:51 → MED/SURG3 18:34
PROVIDERS: ADMIT Internal Medicine; ATTEND Internal Medicine
PROC: 30233R1 Transfusion of Nonautologous Platelets into Peripheral Vein, Percutaneous Approach (ICD-10-PCS; principal; 2019-10-31)
DX: I21.4 Non-ST elevation (NSTEMI) myocardial infarction (principal); I50.33 Acute on chronic diastolic (congestive) heart failure; N17.0 Acute kidney failure with tubular necrosis; I13.0 Hypertensive heart and chronic kidney disease with heart failure and stage 1 through stage 4 chronic kidney disease, or unspecified chronic kidney disease; N39.0 Urinary tract infection, site not specified; D61.818 Other pancytopenia; M33.90 Dermatopolymyositis, unspecified, organ involvement unspecified; N17.9 Acute kidney failure, unspecified; N18.3 Chronic kidney disease, stage 3 (moderate); D69.6 Thrombocytopenia, unspecified; G40.909 Epilepsy, unspecified, not intractable, without status epilepticus; I46.9 Cardiac arrest, cause unspecified; Z11.59 Encounter for screening for other viral diseases; I48.0 Paroxysmal atrial fibrillation; I46.2 Cardiac arrest due to underlying cardiac condition; D63.8 Anemia in other chronic diseases classified elsewhere; F32.9 Major depressive disorder, single episode, unspecified; I25.10 Atherosclerotic heart disease of native coronary artery without angina pectoris; F03.90 Unspecified dementia, unspecified severity, without behavioral disturbance, psychotic disturbance, mood disturbance, and anxiety; Z88.4 Allergy status to anesthetic agent; Z88.2 Allergy status to sulfonamides; Z88.8 Allergy status to other drugs, medicaments and biological substances
CPT/HCPCS: 36415; 70450; 71045; 80053; 80061; 81001; 82550; 82553; 82948; 83735; 83880; 84443; 84484; 85025; 85610; 85730; 86900; 87040; 87086; 87635; 93005; 93306; 97139; 99284; J0696; J2930; J7030; J7050; P9034